=== PATIENT | male | born 1960 | race African-American/Black ===

== ENCOUNTER 2017-08-18 17:24 | Emergency (ER) | payer OTHER ==
[~2017-08-18] VITALS: Ht 188 cm; Wt 124.7 kg
[~2017-08-18 17:24] MED LIST: AMLO10TA2 PO; RISP1TAB7 PO; TRAZ-147 PO; VALS1TAB54 PO
--- NOTE | 2017-08-18 17:25 | NUR ---
BBPA FROM NILO HOLT VV: LLE EDEMA. NAD NOTED. PT AAO X3, RR EVEN AND UNLABORED. PT PLACED IN GOWN AND MONITOR. IV STARTED R ANTHONY 20Chan. AT BEDSIDE FOR EVAL.
[2017-08-18] MEDS ORDERED: LABE200T PO (18:10)
[2017-08-18] MEDS ORDERED: SERT25TA PO (18:10)
[2017-08-18] MEDS ORDERED: OMEP40CA37 PO (18:10)
[2017-08-18] MEDS ORDERED: POTA20TA83 PO (18:10)
[2017-08-18] MEDS ORDERED: HYDR-548 PO (18:10)
[2017-08-18] MEDS ORDERED: GABA-532 PO (18:10)
[2017-08-18] MEDS ORDERED: BENA20TA2 PO (18:10)
[2017-08-18] MEDS ORDERED: DOCU-141 PO (18:10)
[2017-08-18] MEDS ORDERED: FLUT16SP BNOSTRILS (18:11)
[2017-08-18] MEDS ORDERED: IBUP-1955 PO (18:11)
[2017-08-18] MEDS ORDERED: TRAZ-144 PO (18:11)
[2017-08-18] MEDS ORDERED: FURO-144 PO (18:11)
[2017-08-18] MEDS ORDERED: FLUT1BLS IH (18:11)
[2017-08-18] MEDS ORDERED: LORA10TA7 PO (18:11)
[2017-08-18] MEDS ORDERED: ACET-868 PO (18:11)
[2017-08-18] MEDS ORDERED: METO2.5T2 PO (18:11)
[2017-08-18 18:14] LABS: CALCIUM, SERUM 8.7 mg/dL (8.5-10.1); CARBON DIOXIDE 27 mmol/L (21-32); CHLORIDE 106 mmol/L (98-107); GLUCOSE 95 mg/dL (74-106); POTASSIUM 3.9 mmol/L (3.5-5.1); SODIUM SERUM 142 mmol/L (136-145); UREA NITROGEN, BLOOD 13 mg/dL (7-18)
[2017-08-18 18:21] LABS: TROPONIN I < 0.017 ng/mL (0.00-0.056)
[2017-08-18 18:22] LABS: BASOPHILS % (AUTO) 0.5 % (0.0-2.0); EOSINOPHILS # (AUTO) 0.2 /CMM (0.0-0.7); EOSINOPHILS % (AUTO) 3.7 % (0.0-6.0); HEMATOCRIT 32 % (39-51); HEMOGLOBIN 10.6 g/dL (13.5-17.5); LYMPHOCYTES % (AUTO) 15.5 % (20.0-44.0); MEAN CORPUSCULAR HEMOGLOBIN 28 PG (26.0-33.0); MEAN CORPUSCULAR HGB CONC 33 g/dl (31.0-36.0); MEAN CORPUSCULAR VOLUME 85 fL (80-96); MONOCYTES # (AUTO) 0.7 /CMM (0.1-1.30); MONOCYTES % (AUTO) 10.1 % (2.0-12.0); NEUTROPHILS # (AUTO) 4.7 /CMM (1.8-8.9); NEUTROPHILS % (AUTO) 70.2 % (43.0-81.0); PLATELET COUNT (AUTO) 145 /CMM (150-450); RDW COEFFICIENT OF VARIATION 17.5 (11.5-15.0); RED BLOOD CELL COUNT(AUTO) 3.81 MIL/uL (4.5-6.0); WHITE BLOOD COUNT (AUTO) 6.6 K/uL (4.3-11.0)
[2017-08-18 18:26] LABS: ALANINE AMINOTRANSFERASE 11 U/L (12-78); ALBUMIN 3.4 g/dL (3.4-5.0); ALKALINE PHOSPHATASE 102 U/L (46-116); ASPARTATE AMINOTRANSFERASE 14 U/L (15-37); B-TYPE NATRIURETIC PEPTIDE 1246 PG/ML (0-125); BILIRUBIN,DIRECT 0.3 mg/dL (0.0-0.2); BILIRUBIN,TOTAL 0.7 mg/dL (0.2-1.0); TOTAL PROTEIN, SERUM 8.5 g/dL (6.4-8.2)
[2017-08-18 18:30] LABS: APPEARANCE,URINE Clear (CLEAR); BILIRUBIN,URINE SMALL (NEGATIVE); BLOOD, URINE Trace-intact Ery/uL (NEGATIVE); COLOR,URINE Yellow (YELLOW); KETONES,URINE Negative (NEGATIVE); LEUKOCYTE ESTERASE ,URINE Negative (NEGATIVE); NITRITE, URINE Negative (NEGATIVE); PROTEIN,URINE 100 mg/dl (NEGATIVE); UGLUCOSE Negative (NEGATIVE)
[2017-08-18 18:49] LABS: BACTERIA,URINE Rare /HPF (None Seen); SQUAMOUS EPITHELIAL CELL,UR Few /HPF (None Seen); WBC,URINE NONE SEEN /HPF (0-3)
[2017-08-18] MEDS ORDERED: FUROSEMIDE 40 MG/4 ML VIAL ONE (18:57)
[2017-08-18] MEDS ORDERED: FUROSEMIDE 40 MG/4 ML VIAL IV ONE (19:00)
--- NOTE | 2017-08-18 19:01 | NUR ---
GAETANO AT BEDSIDE, URINE COLLECTED CALLED LAB FOR BAND MAKER.
--- NOTE | 2017-08-18 19:02 | NUR ---
Jignesh santillan in [facility] - 08/18/17 at 1903 by EWELINA RECEIVED REPORT FROM LIMA FINNEY FOR SHREYAS.
--- NOTE | 2017-08-18 19:04 | NUR ---
RECEIVED REPORT FROM LIMA FINNEY FOR SHREYAS.
--- NOTE | 2017-08-18 19:56 | NUR ---
CALLED [facility] FOR TRANSPORT ETA OF 2100 WAS GIVEN. TRIP#[phone]
--- NOTE | 2017-08-18 19:57 | NUR ---
PT COMFORTABLE AND STABLE IN BED
--- NOTE | 2017-08-18 20:32 | NUR ---
REPORT GIVEN TO EMT TRANSPORT. PT STABLE
--- NOTE | 2017-08-18 20:51 | NUR ---
HAS BECOME HOSTILE. SPOKE TO MD MERCER ABOUT WRITING SCRIPT FOR [facility] ONCE THIS PT IS BACK AT THE FACILITY HE CAME FROM. PT NOW LEAVING THE FACILITY
[2017-08-18 20:52] VITALS: BP 142/82
== END 2017-08-18 20:52 ==
LOC: ER 17:25
DX: R60.0 Localized edema (principal); J44.9 Chronic obstructive pulmonary disease, unspecified; E66.9 Obesity, unspecified; Z68.39 Body mass index [BMI] 39.0-39.9, adult; D69.6 Thrombocytopenia, unspecified; R31.29 Other microscopic hematuria; R79.89 Other specified abnormal findings of blood chemistry; I50.30 Unspecified diastolic (congestive) heart failure; I11.0 Hypertensive heart disease with heart failure; I50.9 Heart failure, unspecified; I51.7 Cardiomegaly; G47.30 Sleep apnea, unspecified; Z86.73 Personal history of transient ischemic attack (TIA), and cerebral infarction without residual deficits; Z98.84 Bariatric surgery status; Z98.890 Other specified postprocedural states
CPT/HCPCS: 36415; 71045; 80048; 80076; 81001; 83880; 84484; 85025; 93005; 93971; 96374; 99285; A4606; J1940; Z7610; 81000-TC

== ENCOUNTER 2020-09-28 18:12 | Emergency (ER) | payer OTHER ==
[~2020-09-28] VITALS: Ht 188 cm; Wt 156.9 kg
[~2020-09-28 18:12] MED LIST changes: +ACET-868 PO; -AMLO10TA2 PO; +BENA20TA9 PO; +DOCU-141 PO; +FLUT16SP BNOSTRILS; +FLUT1BLS IH; +FURO-144 PO; +GABA-532 PO; +HYDR-4354 PO; +IBUP-1955 PO; +LABE200T5 PO; +LORA10TA7 PO; +METO2.5T2 PO; +OMEP40CA13 PO; +POTA20TA83 PO; -RISP1TAB7 PO; +SERT25TA PO; -TRAZ-147 PO; +TRAZ-182 PO; -VALS1TAB54 PO
[2020-09-28] MEDS ORDERED: OXYMETAZOLINE HCL NASAL SPRAY 30 ML BOTTLE NS ONE ×2 (18:48→19:00)
--- NOTE | 2020-09-28 18:52 | NUR ---
BIB RA [facility] FROM [facility] DUE TO NOSE BLEEDING. PT AAOX4, VSS. RR EVEN & UNLABORED. DENIES CP, SOB, DIZZINESS, N/V AT THIS TIME. PT SEEN & EVAL'D BY ISSA LANCE. MEDICATED ORDERED, PT THOMPSON WELL. WILL CONT TO MONITOR.
--- NOTE | 2020-09-28 19:22 | NUR ---
PT AAOX4, RESPIRATIONS EVEN AND UNLABORED ON RA W/ NAD NOTED. PT CONNECTED TO THE MONITOR AND POX. PT DOES NOT HAVE MEDICAL COMPLAINTS AT THIS TIME. WILL CONTINUE TO MONITOR
[2020-09-28] MEDS ORDERED: HYDROCODONE/APAP 5/325MG TABLET PO ONE (20:00)
[2020-09-28] MEDS ORDERED: ENALAPRILAT INJ (1.25 MG/ML) 1.25 MG/ML VIAL IV PRN (20:00)
[2020-09-28] MEDS ORDERED: ENALAPRILAT INJ (1.25 MG/ML) 1.25 MG/ML VIAL IV ONE (20:14)
[2020-09-28] MEDS ORDERED: HYDROCODONE/APAP 5/325MG TABLET ONE (20:14)
--- NOTE | 2020-09-28 20:45 | NUR ---
PT NOT ACTIVELY BLEEDING AT THIS TIME. PA AWARE.
--- NOTE | 2020-09-28 21:34 | NUR ---
TRIED TO CALL [facility] WAS ON HOLD FOR EXTENDED PERIOD OF TIME, [facility] WAS ABLE TO GIVE 90 MINUTE ETA VIA UN[address]. RETURNING TO FACILITY FROM WHICH HE CAME.
[2020-09-28] MEDS ORDERED: TRANEXAMIC ACID 1,000 MG/10 ML VIAL ONE (22:04)
[2020-09-28] MEDS ORDERED: PHENYLEPHRINE 0.5% NASAL SPRAY 15 ML BOTTLE NS ONE (22:06)
[2020-09-28] MEDS ORDERED: PHENYLEPHRINE HCL NASAL SPRAY 15 ML BOTTLE NS ONE (22:30)
[2020-09-28] MEDS ORDERED: MORPHINE SULFATE INJ 2 MG/ML DISP.SYRIN ONE (22:56)
[2020-09-28] MEDS ORDERED: ONDANSETRON HCL/PF 4 MG/2 ML VIAL ONE (22:56)
[2020-09-28] MEDS ORDERED: ONDANSETRON HCL/PF 4 MG/2 ML VIAL IVP ONE (23:00)
[2020-09-28] MEDS ORDERED: MORPHINE SULFATE INJ 2 MG/ML DISP.SYRIN IV ONE (23:00)
--- NOTE | 2020-09-28 23:44 | NUR ---
ETA FOR TRANSPORT VIA [facility] IS: 0930 [facility] TRIP NUMBER:[id number].
--- NOTE | 2020-09-29 00:26 | NUR ---
PT RESTING COMFORTABLY IN BED. NAD NOTED. NO ACTIVE BLEEDING
--- NOTE | 2020-09-29 02:50 | NUR ---
PT RESTING COMFORTABLY IN BED. VSS. WILL CONTINUE TO MONITOR PT
[2020-09-29 04:37] VITALS: BP 129/79
--- NOTE | 2020-09-29 08:50 | NUR ---
PATIENT AA/OX4, WAITING FOR TRANSPORTATION. NO NOSEBLEED NOTED AT THIS TIME.
--- NOTE | 2020-09-29 10:13 | NUR ---
TRANSPO UPDATE ETA 1030.
--- NOTE | 2020-09-29 10:35 | NUR ---
TRANSPORTATION CAME, PATIENT DOES NOT FIT IN THE GURNEY, WILL SEND ANOTHER CREW LATER TODAY.
--- NOTE | 2020-09-29 10:59 | NUR ---
CALLED [facility] NEW ETA OF AMBULANCE IS 60 MINS
--- NOTE | 2020-09-29 11:30 | NUR ---
FOOD TRAY PROVIDED.
--- NOTE | 2020-09-29 12:50 | NUR ---
REPORT GIVEN TO SAFETY GROOVING MACHINE OPERATOR. PATIENT A/OX4, BREATHING EVEN AND UNLABORED, PATIENT DC TO SNF IN STABLE CONDITION. REPORT GIVEN TO NILO ACKERMAN THIS AM. PATIENT HAS NO EPISODE OF NOSE BLEED AT THIS TIME. Patient discharged to home in stable condition. Written and verbal after care instructions given. Patient verbalizes understanding of instruction.
== END 2020-09-29 12:51 ==
LOC: ER 18:16
DX: R04.0 Epistaxis (principal); G89.29 Other chronic pain; M54.5 Low back pain; E66.9 Obesity, unspecified; Z68.41 Body mass index [BMI] 40.0-44.9, adult; I11.0 Hypertensive heart disease with heart failure; I50.9 Heart failure, unspecified; M10.9 Gout, unspecified; Z86.73 Personal history of transient ischemic attack (TIA), and cerebral infarction without residual deficits; Z98.890 Other specified postprocedural states; Z79.899 Other long term (current) drug therapy
CPT/HCPCS: 96374; 96375; 99285; J2270; J2405; J3490

== ENCOUNTER 2021-04-14 08:33 | Inpatient (IN) | payer OTHER ==
[~2021-04-14] VITALS: Ht 188 cm; Wt 156.9 kg
[~2021-04-14 08:33] MED LIST changes: -OMEP40CA13 PO; +OMEP40CA21 PO
[2021-04-14] MEDS ORDERED: FUROSEMIDE 40 MG/4 ML VIAL ONE (08:49)
[2021-04-14] MEDS ORDERED: FUROSEMIDE 40 MG/4 ML VIAL IV ONE (09:00)
--- NOTE | 2021-04-14 09:00 | NUR ---
Started IV line, blood specimen collected and sent to the lab. The line is saline locked.
[2021-04-14] MEDS ORDERED: APIX5TAB PO (09:06)
[2021-04-14] MEDS ORDERED: SPIR25TA6 PO (09:06)
[2021-04-14] MEDS ORDERED: ROSU5TAB13 PO (09:06)
[2021-04-14] MEDS ORDERED: DIGO125T PO (09:06)
[2021-04-14] MEDS ORDERED: CYCL5TAB PO (09:06)
[2021-04-14] MEDS ORDERED: METO-358 PO (09:06)
[2021-04-14] MEDS ORDERED: FERR325T24 PO (09:06)
[2021-04-14 09:12] LABS: BASOPHILS # (AUTO) 0.1 K/uL (0.0-0.2); BASOPHILS % (AUTO) 0.6 % (0.0-2.0); EOSINOPHILS % (AUTO) 0.8 % (0.0-6.0); HEMATOCRIT 36 % (39-51); HEMOGLOBIN 11.7 g/dL (13.5-17.5); LYMPHOCYTES # (AUTO) 1.3 K/uL (0.8-4.8); LYMPHOCYTES % (AUTO) 10.4 % (20.0-44.0); MEAN CORPUSCULAR HGB CONC 32 g/dl (31.0-36.0); MEAN CORPUSCULAR VOLUME 94 fL (80-96); MONOCYTES # (AUTO) 1.1 K/uL (0.1-1.30); MONOCYTES % (AUTO) 9.4 % (2.0-12.0); NEUTROPHILS # (AUTO) 9.5 K/uL (1.8-8.9); NEUTROPHILS % (AUTO) 78.8 % (43.0-81.0); PLATELET COUNT (AUTO) 262 K/uL (150-450); RED BLOOD CELL COUNT(AUTO) 3.84 MIL/uL (4.5-6.0)
--- NOTE | 2021-04-14 09:23 | NUR ---
THE PATIENT`S OXYGEN SATURATION IN ROOM AIR IS AT 81%. THE PATIENT IS PLACED ON OXYGEN AT 5L/MIN VIA NASAL CANNULA AND SATURATION IMPROVED TO 95%. WILL CONTINUE TO MONITOR THE PATIENT.
[2021-04-14 09:27] LABS: CALCIUM, SERUM 8.5 mg/dL (8.5-10.1); CREATININE 1.1 mg/dL (0.6-1.3); POTASSIUM 3.4 mmol/L (3.5-5.1)
--- NOTE | 2021-04-14 10:17 | NUR ---
COVID SWAB DONE AND SENT TO THE LAB
[2021-04-14] MEDS ORDERED: ALBUTEROL FS 2.5 MG/3 ML VIAL.NEB NEB ONE (10:30)
[2021-04-14] MEDS ORDERED: IPRATROPIUM NEB FS 0.5 MG/2.5 ML AMPUL.NEB NEB ONE (10:30)
--- NOTE | 2021-04-14 10:33 | NUR ---
BLOOD PRESSURE 178/[address] BAIRES MADE AWARE. NO NEW ORDER PER DR BAIRES. WILL CONTINUE TO MONITOR THE PATIENT.
[2021-04-14] MEDS ORDERED: ALBUTEROL FS 2.5 MG/3 ML VIAL.NEB ONE (10:51)
[2021-04-14] MEDS ORDERED: IPRATROPIUM NEB FS 0.5 MG/2.5 ML AMPUL.NEB ONE (10:51)
--- NOTE | 2021-04-14 10:59 | NUR ---
CALLED NURSING SUP REGARDING PT BED
--- NOTE | 2021-04-14 11:36 | NUR ---
REPORT GIVEN TO NURSE ISACA
--- NOTE | 2021-04-14 12:17 | NUR ---
THE PATIENT IS TRANSFERED TO [facility] IN STABLE CONDITION AND PER ACLS POLICY.
[2021-04-14 12:22] VITALS: BP 148/67
--- NOTE | 2021-04-14 12:30 | NUR ---
RN NOTE RECEIVED PATIENT FROM LIMA CAGE FOR SHREYAS
[2021-04-14] MEDS ORDERED: ONDANSETRON HCL/PF 4 MG/2 ML VIAL IVP PRN (14:00)
[2021-04-14] MEDS ORDERED: MAGNESIUM HYDROXIDE 30 ML UDC PO PRN (14:00)
[2021-04-14] MEDS ORDERED: ENOXAPARIN SODIUM 40 MG/0.4 ML DISP.SYRIN SQ SCH (14:00)
[2021-04-14] MEDS ORDERED: POTASSIUM CHLORIDE 20 MEQ TAB.PRT.SR PO ONE (14:00)
[2021-04-14] MEDS: METOPROLOL SUCCINATE 50 MG TAB.SR.24H PO SCH (14:29)
[2021-04-14 16:00] VITALS: BP 151/79
[2021-04-14] MEDS: APIXABAN 5 MG TABLET PO SCH (16:33)
[2021-04-14] MEDS: GABAPENTIN 100 MG CAPSULE PO SCH (16:34)
[2021-04-14] MEDS: POTASSIUM CHLORIDE 20 MEQ TAB.PRT.SR PO SCH (16:34)
--- NOTE | 2021-04-14 17:38 | NUR ---
RN NOTE NOTIFIED DR. GRIFFITHS OF BP 151/71. STATED SHE WILL LOOK OVER MEDLIST.
--- NOTE | 2021-04-14 18:39 | NUR ---
RN NOTE PATIENT IS IN BED WITH HOB AT SEMI FOWLERS POSITION. PATIENT IS ON 5L NC WITH NO SIGNS OF LABORED BREATHING. PATIENT IS AOX4. LHAND IV ACCESS IS PATENT AND INTACT. BED IS LOCKED IN THE LOWEST POSITION, 3 GUARD RAILS RAISED, CALL BENITEZ WITHIN REACH, AND ALL HOSPITAL SAFETY PRECAUTIONS ARE BEING FOLLOWED. WILL ENDORSE TO SLURRY CONTROL OPERATOR HELPER RN.
--- NOTE | 2021-04-14 19:31 | NUR ---
RN OPENING NOTES: RECEIVED PATIENT FROM DAY SHIFT, PATIENT IN BED, SLEEPING, V/S STABLE, NO SIGNS OF DISTRESS, NO SOB, NC AT 5L, IV ACCESS RT. HAND GAUGE 20 PATENT AND INTACT. BED AT LOWEST POSITION, BRAKES LOCKED, SIDE RAILS UP X2, CALL LIGHT WITHIN REACH,
[2021-04-14 20:00] VITALS: BP 136/71
[2021-04-14] MEDS: CYCLOBENZAPRINE 10 MG TABLET PO SCH (21:57)
[2021-04-14] MEDS: ATORVASTATIN 10 MG TABLET PO SCH (21:58)
[2021-04-14] MEDS: SERTRALINE HCL 25 MG TABLET PO SCH (21:58)
[2021-04-14] MEDS: hydrALAZINE HCL 25 MG TABLET PO SCH (22:13)
[2021-04-15] VITALS: BP 120/92
[2021-04-15 04:00] VITALS: BP 145/93
[2021-04-15] MEDS: hydrALAZINE HCL 25 MG TABLET PO SCH ×3 (04:59→21:22)
--- NOTE | 2021-04-15 06:28 | NUR ---
RN CLOSING NOTES: PATIENT VS WNL EXCEPT BP SLIGHTLY ELEVATED 145/93, PATIENT SHOWS NO SIGNS OF RESPIRATORY DISTRESS OR SOB, PATIENT AWAKE AND ALERT 0630, ABLE TO VERBALIZE NEEDS, CONSENT FOR ULTRASOUND GUIDED PARACENTESIS OBTAINED AND PLACED IN THE CHART, BED AT LOWEST POSITION, CALL LIGHT WITHIN REACH, SIDE RAILS UP X2, WOUND CONSULT ORDERED, NEPHRO AND CARDIO CONSULT ORDERED, MILD SPLENOMEGALY, HEMATOLOGY/ONCOLOGY CONSULT ORDERED. WILL ENDORSE TO DAY SHIFT NURSE. Addendum: 04/15/21 at 0633 by ISAIAH OHARA RN DISREGARD, NOTES WERE FOR PATIENT IN 119
[2021-04-15 06:31] LABS: BASOPHILS # (AUTO) 0.1 K/uL (0.0-0.2); BASOPHILS % (AUTO) 0.5 % (0.0-2.0); HEMATOCRIT 34 % (39-51); HEMOGLOBIN 11.2 g/dL (13.5-17.5); LYMPHOCYTES # (AUTO) 1.2 K/uL (0.8-4.8); LYMPHOCYTES % (AUTO) 10.4 % (20.0-44.0); MEAN CORPUSCULAR HGB CONC 33 g/dl (31.0-36.0); MEAN CORPUSCULAR VOLUME 96 fL (80-96); MONOCYTES % (AUTO) 8.9 % (2.0-12.0); NEUTROPHILS # (AUTO) 8.7 K/uL (1.8-8.9); NEUTROPHILS % (AUTO) 78.2 % (43.0-81.0); PLATELET COUNT (AUTO) 240 K/uL (150-450); RED BLOOD CELL COUNT(AUTO) 3.52 MIL/uL (4.5-6.0); WHITE BLOOD COUNT (AUTO) 11.1 K/uL (4.3-11.0)
--- NOTE | 2021-04-15 06:38 | NUR ---
RN CLOSING NOTES: PATIENT IS SLEEPING IN BED, V/S WNL, SATURATION 93% ON NC 5L, TELE SHOWS A FIB. CONTROLLED, A/O X4, AMBULATORY, SKIN INTACT, ON CARDIAC DIET, RT HAND #20, PATENT AND INTACT, FLUSHED WITH SALINE, USES URINAL, LABS WNL, BEDBOUND, SACRAL SCAR PRESENT. PATIENT HAS CALL LIGHT WITHIN REACH, BED AT LOWEST POSITION AND LOCKED, SIDE RAILS UP X2, WILL CONTINUE TO MONITOR AND ENDORSE TO DAY SHIFT NURSE.
[2021-04-15 06:55] LABS: CALCIUM, SERUM 8.6 mg/dL (8.5-10.1); CREATININE 0.9 mg/dL (0.6-1.3); MAGNESIUM 2.3 mg/dL (1.8-2.4); PHOSPHORUS 3.1 mg/dL (2.5-4.9); POTASSIUM 3.8 mmol/L (3.5-5.1)
[2021-04-15 08:00] VITALS: BP 146/89
[2021-04-15] MEDS: GABAPENTIN 100 MG CAPSULE PO SCH ×3 (08:03→16:19)
[2021-04-15] MEDS: BENAZEPRIL HCL 10 MG TABLET PO SCH (08:04)
[2021-04-15] MEDS: DIGOXIN 0.125 MG TABLET PO SCH (08:05)
[2021-04-15] MEDS: FERROUS SULFATE (325 MG) 325 MG/TAB TABLET PO SCH (08:05)
[2021-04-15] MEDS: POTASSIUM CHLORIDE 20 MEQ TAB.PRT.SR PO SCH ×3 (08:05→16:20)
[2021-04-15] MEDS: APIXABAN 5 MG TABLET PO SCH ×2 (08:06→16:20)
[2021-04-15] MEDS ORDERED: BUMETANIDE INJ 6 MG in IV D5W 36 ML IV ONE (09:00)
[2021-04-15 12:00] VITALS: BP 100/53
[2021-04-15] MEDS: METOPROLOL SUCCINATE 50 MG TAB.SR.24H PO SCH (13:17)
[2021-04-15 16:00] VITALS: BP 111/62
[2021-04-15 20:00] VITALS: BP 149/70
--- NOTE | 2021-04-15 20:00 | NUR ---
RN OPENING NOTE: RECEIVED PATIENT AWAKE IN BED, ALERT AND ORIENTED X4 ABLE TO VERBALIZE NEEDS, ON TELE MONITOR UNCONTROLLED AFIB 110 .O2 AT 5LITERS VIA NC TOLERATING WELL O2 SAT OF 96% BREATHING EVEN AND UNLABORED, NO COMPLAINS OF CHEST PAIN NOTED, NO DISTRESS, TURNED AND REPOSITION ON CARDIAC DIET, WITH RIGHT HAND GAUGE 20, INTACT AND PATENT . ISOLATION PRECAUTION OBSERVED, SAFETY MEASURE OBSERVED, BED WHEELS LOCK, BED ALARM SHELL TRIM TOOL SETTER LIGHT WITHIN REACH, V/S STABLE AFEBRILE . DUE MEDS GIVEN ORDER NO ASE NOTED .WILL CONTINUE TO MONITOR.
[2021-04-15] MEDS: CYCLOBENZAPRINE 10 MG TABLET PO SCH (21:23)
[2021-04-15] MEDS: SERTRALINE HCL 25 MG TABLET PO SCH (21:23)
[2021-04-15] MEDS: ATORVASTATIN 10 MG TABLET PO SCH (21:24)
[2021-04-15] MEDS: FUROSEMIDE 40 MG/4 ML VIAL IV SCH (21:29)
[2021-04-16] VITALS: BP 124/79
[2021-04-16 04:00] VITALS: BP 120/69
[2021-04-16] MEDS: hydrALAZINE HCL 25 MG TABLET PO SCH ×3 (05:56→21:29)
--- NOTE | 2021-04-16 07:00 | NUR ---
RN NOTES: RECEIVED ON BED, SLEEPING, V/S STABLE, NO SIGNS OF DISTRESS, NO SOB, NC AT 5L, IV ACCESS RT. HAND GAUGE 20 PATENT AND INTACT. BED AT LOWEST POSITION, BRAKES LOCKED, SIDE RAILS UP X3, CALL LIGHT WITHIN REACH, CONTINUE TO MONITOR .
--- NOTE | 2021-04-16 07:21 | NUR ---
RN CLOSING NOTE: PATIENT STABLE AND SLEEPING IN BED. SATURATING WELL ON ON 5 LITERS OF 02 VIA NC. TOLERATING, NO DISTRESS, NO SOB NOTED. BED AT LOWEST POSITION, SIDE RAILS UP X2, CALL LIGHT WITHIN REACH, WILL CONTINUE TO MONITOR WILL ENDORSE TO DAY SHIFT FOR CONTINUITY OF CARE.
[2021-04-16 08:00] VITALS: BP 123/72
[2021-04-16] MEDS: BENAZEPRIL HCL 10 MG TABLET PO SCH (08:34)
[2021-04-16] MEDS: DIGOXIN 0.125 MG TABLET PO SCH (08:35)
[2021-04-16] MEDS: GABAPENTIN 100 MG CAPSULE PO SCH ×3 (08:35→17:03)
[2021-04-16] MEDS: POTASSIUM CHLORIDE 20 MEQ TAB.PRT.SR PO SCH ×3 (08:36→17:03)
[2021-04-16] MEDS: FERROUS SULFATE (325 MG) 325 MG/TAB TABLET PO SCH (08:36)
[2021-04-16] MEDS: APIXABAN 5 MG TABLET PO SCH ×2 (08:37→17:03)
[2021-04-16] MEDS: FUROSEMIDE 40 MG/4 ML VIAL IV SCH ×2 (08:37→17:03)
[2021-04-16] MEDS ORDERED: IPRATROPIUM NEB FS 0.5 MG/2.5 ML AMPUL.NEB NEB PRN (10:30)
--- NOTE | 2021-04-16 10:30 | NUR ---
RN NOTES LEAKING NOTED AROUND GT SITE , DR CLEMENTE NOTIFIED. Addendum: 04/16/21 at 1837 by GLADIS CORDON RN PLEASE DISREGARD ABOVE CHARTING , CHARTED ON WRONG PT .
[2021-04-16 11:07] LABS: CALCIUM, SERUM 8.5 mg/dL (8.5-10.1); POTASSIUM 3.7 mmol/L (3.5-5.1)
--- NOTE | 2021-04-16 11:40 | NUR ---
WOUND CARE CONSULT: PT PRESENTS WITH GENERALIZED EDEMA AND SACRAL SCARRING WHICH EXTENDS TO BUTTOCKS, PRESENT ON ADMISSION. PT IS INCONTINENT OF URINE. RECOMMENDATIONS MADE FOR SKIN PROTECTION INCLUDING BARIMAX ETS AIR BED. DISCUSSED WITH NURSING STAFF. MD IN AGREEMENT WITH PLAN OF CARE.
[2021-04-16 12:00] VITALS: BP 130/78
[2021-04-16] MEDS: METOPROLOL SUCCINATE 50 MG TAB.SR.24H PO SCH (13:00)
[2021-04-16 16:00] VITALS: BP 133/71
[2021-04-16] MEDS: LEVOFLOXACIN 750 MG /D5W 150ML 150 ML IV SCH (16:20)
--- NOTE | 2021-04-16 17:00 | NUR ---
RN NOTES PT PLACED ON BARIATRIC BED,
--- NOTE | 2021-04-16 18:37 | NUR ---
RN NOTES NO SIGNIFICANT CHANGES NOTED ON THIS SHIFT , WILL ENDOSE TO DRAGLINE ENGINEER NURSE FOR CONTINUITY OF CARE
[2021-04-16 20:00] VITALS: BP 114/62
--- NOTE | 2021-04-16 20:00 | NUR ---
RN OPENING NOTE: RECEIVED PATIENT AWAKE IN BED, ALERT AND ORIENTED X4 ABLE TO VERBALIZE NEEDS, ON TELE MONITOR UNCONTROLLED AFIB 68 .O2 AT 5LITERS VIA NC TOLERATING WELL O2 SAT OF 94% BREATHING EVEN AND UNLABORED, NO COMPLAINS OF CHEST PAIN NOTED, NO DISTRESS, TEMPERATURE OF 100 COOLING MEASURES PROVIDED, TYLENOL GIVEN ORDERED. TURNED AND REPOSITION ON CARDIAC DIET, WITH RIGHT HAND GAUGE 20, INTACT AND PATENT . ISOLATION PRECAUTION OBSERVED, SAFETY MEASURE OBSERVED, BED WHEELS LOCK, BED ALARM FOOD SCIENCE PROFESSOR LIGHT WITHIN REACH, V/S STABLE AFEBRILE . DUE MEDS GIVEN ORDER NO ASE NOTED . NPO POST MIDNIGHT INSTRUCTED FOR CT PULMONARY ANGIO, CONSENT OBTAINED. WILL CONTINUE TO MONITOR.
[2021-04-16] MEDS: CYCLOBENZAPRINE 10 MG TABLET PO SCH (21:29)
[2021-04-16] MEDS: ATORVASTATIN 10 MG TABLET PO SCH (21:29)
[2021-04-16] MEDS: SERTRALINE HCL 25 MG TABLET PO SCH (21:30)
[2021-04-16] MEDS: ACETAMINOPHEN 325 MG TABLET PO PRN (21:31)
[2021-04-17] VITALS: BP 112/52
[2021-04-17 04:00] VITALS: BP 111/70
[2021-04-17] MEDS: hydrALAZINE HCL 25 MG TABLET PO SCH ×3 (05:09→21:16)
--- NOTE | 2021-04-17 06:57 | NUR ---
RN CLOSING NOTE: PATIENT RENDERED TO MORNING SHIFT. AWAKE IN BED, ALERT AND ORIENTED X4 ABLE TO VERBALIZE NEEDS, ON TELE MONITOR CONTROLLED AFIB. O2 AT 5 LITERS VIA NC TOLERATING WELL O2 SAT OF 98% BREATHING EVEN AND UNLABORED, NO COMPLAINS OF CHEST PAIN NOTED, NO DISTRESS, TEMPERATURE OF 97.9. TURNED AND REPOSITION ON CARDIAC DIET, WITH RIGHT HAND GAUGE 20, INTACT AND PATENT, SAFETY MEASURE OBSERVED, BED WHEELS LOCK, BED ALARM SR. STRATEGIC SOURCING MANAGER LIGHT WITHIN REACH, V/S STABLE AFEBRILE . NPO POST MIDNIGHT MAINTAINED FOR CT PULMONARY ANGIO, CONSENT OBTAINED. WILL CONTINUE TO MONITOR.
[2021-04-17 08:00] VITALS: BP 129/91
[2021-04-17 08:01] LABS: BASOPHILS % (AUTO) 0.4 % (0.0-2.0); EOSINOPHILS % (AUTO) 2.6 % (0.0-6.0); HEMATOCRIT 35 % (39-51); HEMOGLOBIN 11.2 g/dL (13.5-17.5); LYMPHOCYTES # (AUTO) 1.4 K/uL (0.8-4.8); LYMPHOCYTES % (AUTO) 15.7 % (20.0-44.0); MEAN CORPUSCULAR HGB CONC 32 g/dl (31.0-36.0); MEAN CORPUSCULAR VOLUME 97 fL (80-96); MONOCYTES % (AUTO) 11.9 % (2.0-12.0); NEUTROPHILS % (AUTO) 69.4 % (43.0-81.0); PLATELET COUNT (AUTO) 270 K/uL (150-450); RED BLOOD CELL COUNT(AUTO) 3.58 MIL/uL (4.5-6.0); WHITE BLOOD COUNT (AUTO) 8.6 K/uL (4.3-11.0)
[2021-04-17] MEDS: FERROUS SULFATE (325 MG) 325 MG/TAB TABLET PO SCH (08:21)
[2021-04-17] MEDS: BENAZEPRIL HCL 10 MG TABLET PO SCH (08:21)
[2021-04-17] MEDS: GABAPENTIN 100 MG CAPSULE PO SCH ×3 (08:21→17:07)
[2021-04-17] MEDS: POTASSIUM CHLORIDE 20 MEQ TAB.PRT.SR PO SCH ×3 (08:21→17:07)
[2021-04-17] MEDS: DIGOXIN 0.125 MG TABLET PO SCH (08:22)
[2021-04-17] MEDS: FUROSEMIDE 40 MG/4 ML VIAL IV SCH ×2 (08:22→17:07)
[2021-04-17] MEDS: METOPROLOL SUCCINATE 50 MG TAB.SR.24H PO SCH ×2 (08:22→17:07)
[2021-04-17] MEDS: APIXABAN 5 MG TABLET PO SCH ×2 (08:23→17:00)
[2021-04-17 08:47] LABS: CALCIUM, SERUM 8.7 mg/dL (8.5-10.1); MAGNESIUM 2.1 mg/dL (1.8-2.4); PHOSPHORUS 3.6 mg/dL (2.5-4.9)
--- NOTE | 2021-04-17 11:11 | NUR ---
1100, PT MEASURED FOR CT GANTRY AND EXCEEDS LIMITS AND IS BORDERLINE WEIGHT LIMA MOYA NOTIFIED AND WILL COMMUNCATE WITH ORDERING PMD.
[2021-04-17 12:00] VITALS: BP 129/91
[2021-04-17] MEDS: LEVOFLOXACIN 750 MG /D5W 150ML 150 ML IV SCH (15:47)
[2021-04-17 16:00] VITALS: BP 136/74
--- NOTE | 2021-04-17 19:36 | NUR ---
RN OPENING NOTES: RECEIVED PATIENT AWAKE IN BED, ALERT AND ORIENTED X4, ABLE TO VERBALIZE NEEDS, ON TELE MONITOR CONTROLLED AFIB 86.O2 AT 5 LITERS VIA NC TOLERATING WELL WITH NO SIGNS OF RESPIRATORY DISTRESS, BREATHING EVEN AND UNLABORED, NO COMPLAINS OF CHEST PAIN NOTED. TURNED AND REPOSITION, WITH RIGHT HAND GAUGE 20, INTACT AND PATENT. SAFETY MEASURE OBSERVED, BED WHEELS LOCK, BED ALARM FLAME ANNEALING MACHINE OPERATOR LIGHT WITHIN REACH. DUE MEDS GIVEN ORDER NO ASE NOTED. NPO POST MIDNIGHT INSTRUCTED FOR CT PULMONARY ANGIO, CONSENT OBTAINED. WILL CONTINUE TO MONITOR.
[2021-04-17 20:00] VITALS: BP 134/74
[2021-04-17] MEDS: CYCLOBENZAPRINE 10 MG TABLET PO SCH (21:15)
[2021-04-17] MEDS: ATORVASTATIN 10 MG TABLET PO SCH (21:16)
[2021-04-17] MEDS: SERTRALINE HCL 25 MG TABLET PO SCH (21:16)
[2021-04-18] VITALS: BP 126/73
[2021-04-18 04:00] VITALS: BP 124/77
[2021-04-18] MEDS: hydrALAZINE HCL 25 MG TABLET PO SCH ×3 (05:25→20:28)
--- NOTE | 2021-04-18 06:29 | NUR ---
RN CLOSING NOTE: PATIENT STABLE AND SLEEPING IN BED. SATURATING WELL ON ON 5 LITERS OF 02 VIA NC. TOLERATING, NO DISTRESS, NO SOB NOTED NPO MAINTAINED FO CT PULMONARY ANGIOGRAM. BED AT LOWEST POSITION, SIDE RAILS UP X2, CALL LIGHT WITHIN REACH, WILL CONTINUE TO MONITOR WILL ENDORSE TO DAY SHIFT FOR CONTINUITY OF CARE.
[2021-04-18 07:27] LABS: BASOPHILS # (AUTO) 0.1 K/uL (0.0-0.2); BASOPHILS % (AUTO) 0.6 % (0.0-2.0); EOSINOPHILS % (AUTO) 2.6 % (0.0-6.0); HEMATOCRIT 34 % (39-51); LYMPHOCYTES # (AUTO) 1.2 K/uL (0.8-4.8); MEAN CORPUSCULAR HGB CONC 33 g/dl (31.0-36.0); MEAN CORPUSCULAR VOLUME 95 fL (80-96); MONOCYTES % (AUTO) 9.6 % (2.0-12.0); NEUTROPHILS # (AUTO) 7.5 K/uL (1.8-8.9); NEUTROPHILS % (AUTO) 75.2 % (43.0-81.0); PLATELET COUNT (AUTO) 279 K/uL (150-450); RED BLOOD CELL COUNT(AUTO) 3.53 MIL/uL (4.5-6.0); WHITE BLOOD COUNT (AUTO) 9.9 K/uL (4.3-11.0)
--- NOTE | 2021-04-18 07:30 | NUR ---
LABOR DELIVERY RN OPENING NOTES: RECEIVED PATIENT AWAKE IN BED, A/O X4, ABLE TO VERBALIZE NEEDS, ON TELE MONITOR CONTROLLED AFIB 92. O2 AT 5 LITERS VIA NC TOLERATING WELL WITH NO SIGNS OF RESPIRATORY DISTRESS, BREATHING EVEN AND UNLABORED, NO COMPLAINS OF CHEST PAIN NOTED. RIGHT HAND GAUGE 20, INTACT AND PATENT. SAFETY MEASURE MAINTAINED, BED IN LOWEST LOCKED POSITION, HOB ELEVATED, CALL LIGHT AND TABLE WITHIN REACH. NPO POST MIDNIGHT INSTRUCTED FOR CT PULMONARY ANGIO, CONSENT OBTAINED. WILL CONTINUE TO MONITOR.
[2021-04-18 07:52] LABS: ALBUMIN 2.5 g/dL (3.4-5.0); BILIRUBIN,TOTAL 0.6 mg/dL (0.2-1.0); CREATININE 0.9 mg/dL (0.6-1.3); MAGNESIUM 2.3 mg/dL (1.8-2.4); PHOSPHORUS 3.2 mg/dL (2.5-4.9); POTASSIUM 4.2 mmol/L (3.5-5.1); TOTAL PROTEIN, SERUM 8.3 g/dL (6.4-8.2)
[2021-04-18 08:00] VITALS: BP 124/72
[2021-04-18] MEDS: METOPROLOL SUCCINATE 50 MG TAB.SR.24H PO SCH ×2 (08:26→16:40)
[2021-04-18] MEDS: APIXABAN 5 MG TABLET PO SCH ×2 (08:28→16:41)
[2021-04-18] MEDS: GABAPENTIN 100 MG CAPSULE PO SCH ×3 (08:28→16:40)
--- NOTE | 2021-04-18 08:28 | NUR ---
RN NOTE WITHHELD ELIQUIS 5 MG PO AT THIS TIME DUE TO UPCOMING CT PULMONARY ANGIOGRAM.
[2021-04-18] MEDS: FERROUS SULFATE (325 MG) 325 MG/TAB TABLET PO SCH (08:29)
[2021-04-18] MEDS: POTASSIUM CHLORIDE 20 MEQ TAB.PRT.SR PO SCH ×3 (08:29→16:41)
[2021-04-18] MEDS: BENAZEPRIL HCL 10 MG TABLET PO SCH (08:29)
[2021-04-18] MEDS: DIGOXIN 0.125 MG TABLET PO SCH (08:30)
[2021-04-18] MEDS: FUROSEMIDE 40 MG/4 ML VIAL IV SCH ×2 (08:30→16:41)
[2021-04-18 09:14] LABS: IRON, SERUM 45 ug/dl (50-175); TOTAL IRON BINDING CAPACITY 320 ug/dl (250-450)
[2021-04-18 09:29] LABS: FERRITIN 134 ng/mL (8-388)
[2021-04-18 12:00] VITALS: BP 143/66
[2021-04-18] MEDS: LEVOFLOXACIN 750 MG /D5W 150ML 150 ML IV SCH (15:09)
[2021-04-18 16:00] VITALS: BP 127/60
--- NOTE | 2021-04-18 16:42 | NUR ---
RN NOTE WITHHELD ELIQUIS 5 MG PO AT THIS TIME DUE TO EPISTAXIS. NEUROPSYCHOLOGY DIVISION CHIEF AYE AWARE. WILL CONTINUE TO MONITOR PT.
--- NOTE | 2021-04-18 18:45 | NUR ---
MASK DESIGNER CLOSING NOTES PATIENT AWAKE IN BED, A/O X4, ABLE TO VERBALIZE NEEDS, ON TELE MONITOR CONTROLLED AFIB 65. O2 AT 4 LITERS VIA NC TOLERATING WELL WITH NO SIGNS OF RESPIRATORY DISTRESS, BREATHING EVEN AND UNLABORED, NO COMPLAINS OF CHEST PAIN NOTED. RIGHT HAND GAUGE 20, INTACT AND PATENT. ALL NEEDS MET AT THIS TIME. SAFETY MEASURE MAINTAINED AT ALL TIMES. BED IN LOWEST LOCKED POSITION, HOB ELEVATED, CALL LIGHT AND TABLE WITHIN REACH. WILL ENDORSE TO ONCOMING NURSE FOR SHREYAS.
--- NOTE | 2021-04-18 19:52 | NUR ---
RN OPENING NOTE: RECEIVED PATIENT AWAKE IN BED, ALERT AND ORIENTED X4 ABLE TO VERBALIZE NEEDS, ON TELE MONITOR AFIB CONTROLLED 107 .O2 AT 4 LITERS VIA NC TOLERATING WELL O2 SAT OF 94% BREATHING EVEN AND UNLABORED, NO COMPLAINS OF CHEST PAIN NOTED, NO DISTRESS TURNED AND REPOSITION WITH RIGHT HAND GAUGE 20, AND RIGHT FOREARM g18 INTACT AND PATENT . BED WHEELS LOCK, BED ALARM ON ,CALL LIGHT WITHIN REACH, V/S STABLE AFEBRILE . DUE MEDS GIVEN ORDER NO ASE NOTED . WILL CONTINUE TO MONITOR PATIENT .
[2021-04-18 20:00] VITALS: BP 116/72
[2021-04-18] MEDS: ATORVASTATIN 10 MG TABLET PO SCH (21:06)
[2021-04-18] MEDS: SERTRALINE HCL 25 MG TABLET PO SCH (21:06)
[2021-04-18] MEDS: CYCLOBENZAPRINE 10 MG TABLET PO SCH (21:07)
[2021-04-19] VITALS: BP 131/65
[2021-04-19 04:00] VITALS: BP 127/66
--- NOTE | 2021-04-19 04:00 | NUR ---
telephone assembler notes pts offered to clean pts refused at this time explained r/b pts still refused.
[2021-04-19] MEDS: hydrALAZINE HCL 25 MG TABLET PO SCH ×3 (05:47→21:49)
--- NOTE | 2021-04-19 06:30 | NUR ---
RN CLOSING NOTE: PATIENT STABLE AND SLEEPING IN BED. SATURATING WELL ON ON 4 LITERS OF 02 VIA NC. TOLERATING, NO DISTRESS, NO SOB NOTED PTS OFFERED 4X TO CLEAN HIM AND UNTIL AT THIS TIME PTS REFUSING TO BE CLEANED.. BED AT LOWEST POSITION, SIDE RAILS UP X2, CALL LIGHT WITHIN REACH, WILL CONTINUE TO MONITOR WILL ENDORSE TO DAY SHIFT FOR CONTINUITY OF CARE.
--- NOTE | 2021-04-19 07:30 | NUR ---
RN NOTES PT FOUND SUPINE WATCHING TV DISPLAYING NO S/S OF DISTRESS, PT ENDORSES NO PAIN AND IS BREATHING EVEN AND UNLABORED ON NC. PT HAS NO COMPLAINTS OR QUESTIONS AT THIS TIME. R FA 18G AND R HAND 20G IV ARE PATIENT AND INTACT. VSS, RN WILL MONITOR AND TREAT THROUGHOUT SHIFT. SAFETY MEASURES IN PLACE, BED LOCKED AND IN LOWEST POSITION, SIDE RAILS UPX2, CALL LIGHT WITHIN REACH, PT INSTRUCTED TO CALL FOR ASSISTANCE.
[2021-04-19] MEDS: POTASSIUM CHLORIDE 20 MEQ TAB.PRT.SR PO SCH ×3 (08:57→17:31)
[2021-04-19] MEDS: DIGOXIN 0.125 MG TABLET PO SCH (08:58)
[2021-04-19] MEDS: GABAPENTIN 100 MG CAPSULE PO SCH ×3 (08:58→17:31)
[2021-04-19] MEDS: FUROSEMIDE 40 MG/4 ML VIAL IV SCH ×2 (08:58→17:30)
[2021-04-19] MEDS: BENAZEPRIL HCL 10 MG TABLET PO SCH (08:58)
[2021-04-19] MEDS: FERROUS SULFATE (325 MG) 325 MG/TAB TABLET PO SCH (08:58)
[2021-04-19] MEDS: METOPROLOL SUCCINATE 50 MG TAB.SR.24H PO SCH ×2 (08:59→17:30)
[2021-04-19] MEDS: APIXABAN 5 MG TABLET PO SCH ×2 (09:01→17:32)
[2021-04-19 11:37] VITALS: BP 117/83
[2021-04-19 12:00] VITALS: BP 117/83
[2021-04-19] MEDS: LEVOFLOXACIN 750 MG /D5W 150ML 150 ML IV SCH (15:37)
[2021-04-19 16:00] VITALS: BP 147/52
--- NOTE | 2021-04-19 19:20 | NUR ---
RN NOTES PT FOUND SUPINE WATCHING TV DISPLAYING NO S/S OF DISTRESS, PT ENDORSES NO PAIN AND IS BREATHING EVEN AND UNLABORED ON NC. PT REQUESTED TO BE CLEANED, RN EXPLAINED TO PT THAT 1900 AND 0700 IS FOR CHANGE OF SHIFT. PT VERBALIZED UNDERSTANDING. R FA 18G AND R HAND 20G IV ARE PATIENT AND INTACT. VSS, SBAR AND REPORT GIVEN TO EMS HELICOPTER PILOT RN. SAFETY MEASURES IN PLACE, BED LOCKED AND IN LOWEST POSITION, SIDE RAILS UPX2, CALL LIGHT WITHIN REACH, PT INSTRUCTED TO CALL FOR ASSISTANCE. PT ENDORSED IN STABLE CONDITION FOR SHREYAS.
--- NOTE | 2021-04-19 19:40 | NUR ---
RN NOTE PATIENT ALERT AND ORIENTED X4, ABLE TO MAKE NEEDS KNOWN. ON O2 4L VIA NASAL CANNULA, NO S/S OF RESPIRATORY DISTRESS. DENIES ANY PAIN OR DISCOMFORT. IV ACCESS ON RIGHT FOREARM #18 AND RIGHT HAND #20, PATENT AND INTACT. BED LOCKED AND IN LOWEST POSITION. CALL LIGHT WITHIN REACH. ALL NEEDS ANTICIPATED.
[2021-04-19 20:00] VITALS: BP 121/76
[2021-04-19] MEDS: CYCLOBENZAPRINE 10 MG TABLET PO SCH (21:49)
[2021-04-19] MEDS: SERTRALINE HCL 25 MG TABLET PO SCH (21:49)
[2021-04-19] MEDS: ATORVASTATIN 10 MG TABLET PO SCH (21:49)
[2021-04-20] VITALS: BP 98/70
--- NOTE | 2021-04-20 03:20 | NUR ---
RN NOTE TRANSFERRED PATIENT TO BED 315-1 PER [facility]S PROTOCOL. PATIENT IN STABLE CONDITION. ALL MEDICATIONS AND BELONGINGS TRANSFERRED WITH PATIENT. BEDSIDE REPORT GIVEN TO HOLDEN RN FOR CONTINUITY OF CARE.
[2021-04-20 04:00] VITALS: BP 127/64
[2021-04-20] MEDS: hydrALAZINE HCL 25 MG TABLET PO SCH ×3 (05:00→21:00)
--- NOTE | 2021-04-20 06:57 | NUR ---
ASSISTANT BRANCH MANAGER/CLOSING NOTE PATIENT RECEIVED FROM [facility] LIMA TURNER AT 0320, PATIENT STABLE UPON TRANSFER. PATIENT IS A/O X 4, ABLE TO MAKE NEEDS KNOWN. PATIENT ON 4 L OF O2 SUPPLEMENTATION, IN MILD DISTRESS, SOB AT REST. PATIENT'S SKIN ISSUES DOCUMENTED. ORIENTED PATIENT TO ROOM, RN, ACADEMY EDUCATION DIRECTOR, AND CHARGE NURSE. PATIENT'S BELONGINGS INVENTORIED. PATIENT HAS A R HAND 20 G AND R FA 18 G BOTH PATENT AND INTACT. ALL NEEDS MET AND ATTENDED. ALL ORDERS CARRIED OUT, HOB ELEVATED. SAFETY MEASURES IN PLACE: BED LOCKED AND IN LOWEST POSITION, CALL LIGHT WITHIN REACH, SIDE RAILS UP. WILL ENDORSE TO DAY SHIFT NURSE FOR SHREYAS. Addendum: 04/20/21 at 0701 by HUGH VELASCO RN TELE MONITOR READS AFIB 96 BPM.
--- NOTE | 2021-04-20 07:53 | NUR ---
DIGITAL CAMPAIGN MANAGER OPENING NOTES RECEIVED PATIENT IN BED A/O X 4, ABLE TO MAKE NEEDS KNOWN. PATIENT ON 4 L OF O2 SUPPLEMENTATION VIA NASAL CANNULA. NO SOB NOTED AT THIS TIME. PATIENT HAS A R HAND 20 G AND R FA 18 G BOTH PATENT AND INTACT. SAFETY MEASURES IN PLACED,BED IN LOWEST POSITION AND LOCKED. HOB ELEVATED. CALL LIGHT WITHIN REACH, SIDE RAILS UP. WILL CONTINUE TO MONITOR.
[2021-04-20 08:00] VITALS: BP 119/71
[2021-04-20 08:17] LABS: BASOPHILS # (AUTO) 0.1 K/uL (0.0-0.2); BASOPHILS % (AUTO) 0.6 % (0.0-2.0); EOSINOPHILS % (AUTO) 3.2 % (0.0-6.0); HEMATOCRIT 34 % (39-51); LYMPHOCYTES # (AUTO) 1.2 K/uL (0.8-4.8); LYMPHOCYTES % (AUTO) 10.3 % (20.0-44.0); MEAN CORPUSCULAR HGB CONC 33 g/dl (31.0-36.0); MEAN CORPUSCULAR VOLUME 95 fL (80-96); MONOCYTES # (AUTO) 1.2 K/uL (0.1-1.30); NEUTROPHILS # (AUTO) 9.2 K/uL (1.8-8.9); NEUTROPHILS % (AUTO) 75.9 % (43.0-81.0); PLATELET COUNT (AUTO) 293 K/uL (150-450); RED BLOOD CELL COUNT(AUTO) 3.53 MIL/uL (4.5-6.0); WHITE BLOOD COUNT (AUTO) 12.1 K/uL (4.3-11.0)
[2021-04-20] MEDS: DIGOXIN 0.125 MG TABLET PO SCH (08:49)
[2021-04-20] MEDS: GABAPENTIN 100 MG CAPSULE PO SCH ×3 (08:49→16:27)
[2021-04-20] MEDS: BENAZEPRIL HCL 10 MG TABLET PO SCH (08:49)
[2021-04-20 08:51] LABS: CALCIUM, SERUM 8.7 mg/dL (8.5-10.1); CREATININE 1.1 mg/dL (0.6-1.3); MAGNESIUM 2.2 mg/dL (1.8-2.4); POTASSIUM 3.9 mmol/L (3.5-5.1)
[2021-04-20] MEDS: FERROUS SULFATE (325 MG) 325 MG/TAB TABLET PO SCH (08:53)
[2021-04-20] MEDS: APIXABAN 5 MG TABLET PO SCH ×2 (08:53→16:30)
[2021-04-20] MEDS: FUROSEMIDE 40 MG/4 ML VIAL IV SCH ×2 (08:54→16:27)
[2021-04-20] MEDS: POTASSIUM CHLORIDE 20 MEQ TAB.PRT.SR PO SCH ×3 (08:58→16:27)
[2021-04-20] MEDS: METOPROLOL SUCCINATE 50 MG TAB.SR.24H PO SCH ×2 (08:59→16:31)
[2021-04-20 12:00] VITALS: BP 110/61
--- NOTE | 2021-04-20 12:55 | NUR ---
BAG MACHINE SET UP OPERATOR NOTES- WITHHELD APRESOLINE WITHHELD APRESOLINE DUE TO LOW BP 110/61.HR 88.WILL CONTINUE TO MONITOR.
[2021-04-20] MEDS: LEVOFLOXACIN 750 MG /D5W 150ML 150 ML IV SCH (15:18)
[2021-04-20 16:00] VITALS: BP 109/60
--- NOTE | 2021-04-20 16:31 | NUR ---
TABULAR TYPIST NOTES- WITHHOLD BP MEDS WITHHOLD METOPROLOL 100MG PO DUE TO LOW BP 109/60 MG/DL,HR 93 BPM. WILL CONTINUE TO MONITOR
--- NOTE | 2021-04-20 18:47 | NUR ---
HURRICANE TRACKER CLOSING NOTE PATIENT IN BED A/O X 4, ABLE TO MAKE NEEDS KNOWN. PATIENT ON 4 L OF O2 SUPPLEMENTATION VIA NASAL CANNULA. NO SOB NOTED AT THIS TIME. PATIENT HAS A R HAND 20 G AND R FA 18 G BOTH PATENT AND INTACT. SAFETY MEASURES IN PLACED, BED IN LOWEST POSITION AND LOCKED. HOB ELEVATED. CALL LIGHT WITHIN REACH, SIDE RAILS UP. WILL ENDORSE TO THE NEXT SHIFT..
--- NOTE | 2021-04-20 19:37 | NUR ---
MACHINIST GENERAL OPENING NOTES: RECEIVED PATIENT AWAKE IN BED,BED IN LOW POSITION, CALL LIGHTS WITHIN REACH, NO COMPLAIN OF PAIN AND DISCOMFORT AT THIS TIME, PATIENT IS A/OX4 ON BED REST ON TELE MONITORING AFB-113 UNCONTROLLED, NO SYMPTOMS WAS OBSERVED, IV LINE AT RT HAND #20 AND RFA #18 SL, PATIENT KEPT CLEAN AND DRY, ALL NEEDS MET, CONTINUE TO MONITOR.
[2021-04-20 20:00] VITALS: BP 100/67
[2021-04-20] MEDS: ACETAMINOPHEN 325 MG TABLET PO PRN (20:36)
--- NOTE | 2021-04-20 20:37 | NUR ---
CLIENT SERVICE AND CONSULTING MANAGER NOTE: TYLENOL 650 MG PO GIVEN FOR FEVER AT 100.4, ICE PACK PROVIDED ON BILATERAL ARMPIT.
--- NOTE | 2021-04-20 21:14 | NUR ---
RETAIL LOAN OFFICER NOTES: BP-100/67 BP MEDICINE FOR 2099 APRESOLINE 25MG PO NOT GIVEN
[2021-04-20] MEDS: ATORVASTATIN 10 MG TABLET PO SCH (22:41)
[2021-04-20] MEDS: CYCLOBENZAPRINE 10 MG TABLET PO SCH (22:41)
[2021-04-20] MEDS: SERTRALINE HCL 25 MG TABLET PO SCH (22:41)
[2021-04-21] VITALS: BP 115/68
[2021-04-21 04:30] VITALS: BP 131/79
[2021-04-21] MEDS: hydrALAZINE HCL 25 MG TABLET PO SCH ×3 (06:16→20:35)
--- NOTE | 2021-04-21 07:22 | NUR ---
AUTOMATION DEVELOPER CLOSING NOTES: PATIENT SLEEP IN BED COMFORTABLY, AROUSABLE TO VERBAL STIMULI, BED IN LOW POSITION, CALL LIGHTS WITHIN REACH, NO COMPLAIN OF PAIN AND DISCOMFORT AT THIS TIME,ON 02 INHALATION AT 4 LPM NO SOB NOTES, PATIENT IS A/4 ABLE TO MAKE NEEDS KNOWN KEPT CLEAN AND DRY ALL NEEDS MET, ENDORSE TO INCOMING SHIFT.
--- NOTE | 2021-04-21 07:30 | NUR ---
BONDERIZER OPERATOR OPENING NOTES: RECEIVED PATIENT AWAKE IN BED ALERT AND ORIENTED X4. BED IN LOW POSITION AND LOCKED.,CALL LIGHT AND TABLE WITHIN REACH, NO COMPLAIN OF PAIN AND DISCOMFORT AT THIS TIME, PATIENT IS ON BED REST ON TELE MONITORING AFB-94 CONTROLLED. IV LINE AT RT HAND #20 AND RFA #18 SL, PATENT . NO SWELLING , REDNESS OR BLEEDING NOTED. BREATHS EVEN AND UNLABORED . NO RESPIRATORY DISTRESS NOTED. ON O2 INHALATION VIA NASAL CANNULA @ 4 L/MIN.NO SOB NOTED.WILL CONTINUE TO MONITOR.
[2021-04-21 08:00] VITALS: BP 125/78
[2021-04-21] MEDS: FUROSEMIDE 40 MG/4 ML VIAL IV SCH ×2 (09:26→16:41)
[2021-04-21] MEDS: GABAPENTIN 100 MG CAPSULE PO SCH ×3 (09:26→16:42)
[2021-04-21] MEDS: DIGOXIN 0.125 MG TABLET PO SCH (09:27)
[2021-04-21] MEDS: FERROUS SULFATE (325 MG) 325 MG/TAB TABLET PO SCH (09:27)
[2021-04-21] MEDS: BENAZEPRIL HCL 10 MG TABLET PO SCH (09:27)
[2021-04-21] MEDS: POTASSIUM CHLORIDE 20 MEQ TAB.PRT.SR PO SCH ×3 (09:27→16:41)
[2021-04-21] MEDS: METOPROLOL SUCCINATE 50 MG TAB.SR.24H PO SCH ×2 (09:28→17:00)
[2021-04-21] MEDS: APIXABAN 5 MG TABLET PO SCH ×2 (09:29→16:43)
[2021-04-21 12:00] VITALS: BP 101/66
--- NOTE | 2021-04-21 12:43 | NUR ---
TELE/RN NOTES- OXYGEN PATIENT'S OXYGEN AT ROOM AIR IS 87%. PATIENT NOTED TO HAVE SHORTNESS OF BREATH WITHOUT OXYGEN MACHINE. WILL MONITOR.
--- NOTE | 2021-04-21 13:10 | NUR ---
HEADER SET UP OPERATOR NOTES, WITHHELD MEDICATION HELD HYDRALAZINE DUE TO GM=130/66, P=56
[2021-04-21 13:15] LABS: ABG BASE EXCESS 8.3 mmol/L; ABG OXYGEN SATURATION 91.9 % (92.0-98.5); ABG PCO2 55.4 mmHg (35.0-45.0); ABG PH 7.411 (7.350-7.450); ABG PO2 68.3 mmHg (75.0-100.0); COHb 0.3 % (0.5-1.5); MetHb 0.1 % (0.0-1.5); O2Hb 91.5 % (94.0-97.0); SITE, ABG Left Radial; VENT MODE, BG NC 32%
[2021-04-21] MEDS: LEVOFLOXACIN 750 MG /D5W 150ML 150 ML IV SCH (15:57)
[2021-04-21 16:00] VITALS: BP 113/50
--- NOTE | 2021-04-21 17:16 | NUR ---
FURNACE BUILDER NOTES, WITHHELD MEDICATION. HELD METOPROLOL FOR WM=833/50. P=78.
--- NOTE | 2021-04-21 19:00 | NUR ---
RN NOTE RECEIVED PATIENT IN BED RESTING ALERT ORIENTED X4 VERBALLY RESPONSIVE ON 4L OXYGEN VIA NASAL CANNULA, O2:94% IV SITE IS ON RIGHT HAND INTACT PATENT,INCONTINENT TO BOWEL/BLADDER, SAFETY MEASURE IMPLEMENT BED IN LOW POSITION AND LOCKED,HEAD OF THE BED ELEVATED,CALL LIGHT WITHIN REACH CONTINUE TO MONITOR.
--- NOTE | 2021-04-21 19:32 | NUR ---
SENIOR GRADUATE ADVISOR CLOSING NOTES: PATIENT AWAKE IN BED ALERT AND ORIENTED X4. BED IN LOW POSITION AND LOCKED.,CALL LIGHT AND TABLE WITHIN REACH, NO COMPLAIN OF PAIN AND DISCOMFORT AT THIS TIME, PATIENT IS ON BED REST ON TELE MONITORING . IV LINE AT RT HAND #20 AND RFA #18 SL, PATENT . NO SWELLING , REDNESS OR BLEEDING NOTED. BREATHS EVEN AND UNLABORED . NO RESPIRATORY DISTRESS NOTED. ON O2 INHALATION VIA NASAL CANNULA @ 4 L/MIN.NO SOB NOTED.ALL DUE MEDS GIVEN ORDERED.WILL ENDORSE ONCOMING SHIFT FOR SHREYAS.
[2021-04-21 20:00] VITALS: BP 117/72
[2021-04-21] MEDS: CYCLOBENZAPRINE 10 MG TABLET PO SCH (21:43)
[2021-04-21] MEDS: ATORVASTATIN 10 MG TABLET PO SCH (21:44)
[2021-04-21] MEDS: SERTRALINE HCL 25 MG TABLET PO SCH (21:44)
[2021-04-22] VITALS (7 sets, daily range): BP systolic 108–155; BP diastolic 61–79
[2021-04-22] MEDS: hydrALAZINE HCL 25 MG TABLET PO SCH ×3 (05:09→21:00)
--- NOTE | 2021-04-22 06:46 | NUR ---
RN NOTE PATIENT REMAINS ON ALERT ORIENTEDX4 VERBALLY RESPONSIVE ON 4L OXYGEN VIA NASAL CANNULA O2:98% NO SOB NOT ACUTE DISTRESS NOTED ALL DUE MEDS GIVEN MD ORDERED KEPT CLEAN AND DRY ALL THE TIME ALL NEEDS MET ENDORSE NEXT COMING SHIFT FOR CONTINUATION OF CARE.
--- NOTE | 2021-04-22 07:36 | NUR ---
RN NOTES RECEIVED PT A/OX4, NO RESPIRATORY DISTRESS, RR IS EVEN AND NONLABORED, ON BEDREST. CALL LIGHT IS WITHIN REACH, BED SAFETY LOCK ON, IN LOWEST POSITION, SIDE RAILX2.
[2021-04-22] MEDS: GABAPENTIN 100 MG CAPSULE PO SCH ×3 (08:35→17:50)
[2021-04-22] MEDS: FERROUS SULFATE (325 MG) 325 MG/TAB TABLET PO SCH (08:36)
[2021-04-22] MEDS: DIGOXIN 0.125 MG TABLET PO SCH (08:36)
[2021-04-22] MEDS: METOPROLOL SUCCINATE 50 MG TAB.SR.24H PO SCH ×2 (08:36→17:50)
[2021-04-22] MEDS: POTASSIUM CHLORIDE 20 MEQ TAB.PRT.SR PO SCH ×3 (08:37→17:47)
[2021-04-22] MEDS: BENAZEPRIL HCL 10 MG TABLET PO SCH (08:37)
[2021-04-22] MEDS: APIXABAN 5 MG TABLET PO SCH ×2 (08:38→17:48)
[2021-04-22] MEDS: FUROSEMIDE 40 MG/4 ML VIAL IV SCH ×2 (10:33→17:50)
[2021-04-22 11:20] LABS: ABG BASE EXCESS 7.8 mmol/L; ABG OXYGEN SATURATION 95.1 % (92.0-98.5); ABG PCO2 50.7 mmHg (35.0-45.0); ABG PH 7.435 (7.350-7.450); ABG PO2 81.6 mmHg (75.0-100.0); COHb 0.3 % (0.5-1.5); MetHb 0.1 % (0.0-1.5); O2Hb 94.7 % (94.0-97.0); SITE, ABG Left Radial; VENT MODE, BG Nasal Cannula
[2021-04-22] MEDS: LEVOFLOXACIN 750 MG /D5W 150ML 150 ML IV SCH (16:12)
--- NOTE | 2021-04-22 19:07 | NUR ---
RN CLOSING NOTES PT IS A/OX4, BREATHING EVEN BILATERALLY, NONLABORED ON ROOM AIR. ALL MEDS ADMINISTERED VIA MD ORDER. CALL LIGHT IS WITHIN REACH, BED SAFETY LOCK ON, IN LOWEST POSITION, SIDERAIL X2. WILL ENDORSE TO WELL DRILL OPERATOR ROTARY DRILL FOR CONTINUED CARE.
--- NOTE | 2021-04-22 20:03 | NUR ---
WOOD DOWEL MACHINE OPERATOR NOTE PATIENT IN ROOM. A/X4. ABLE TO MAKE NEEDS KNOWN. NO S/S OF APPARENT DISTRESS ON 4L OXYGEN VIA NC. NO C/O PAIN AT THIS TIME. NEEDS ATTENDED. AWAITING FOR DISCHARGED. LIMA MAGALLON AWAITING TO GIVE REPORT TO THE FACILITY PATIENT IS GETTING DISCHARGED IN. NEEDS ATTENDED AT THIS TIME.
[2021-04-22] MEDS: ATORVASTATIN 10 MG TABLET PO SCH (22:00)
[2021-04-22] MEDS: CYCLOBENZAPRINE 10 MG TABLET PO SCH (22:00)
[2021-04-22] MEDS: SERTRALINE HCL 25 MG TABLET PO SCH (22:00)
--- NOTE | 2021-04-22 23:37 | NUR ---
VP EMERGING MEDIA NOTE PATIENT PICKED UP BY [facility] AT THIS TIME. PATIENT IN STABLE CONDITION. CLEANED AND DISCHARGED WITH HOSPITAL GOWN. DISCHARGED PAPER SIGNED BY PATIENT AND BY LIMA SCHWARZ. BELONGINGS SIGNED AND WITH PATIENT. DISCHARGE PACKET GIVEN TO EMT. WRIST BAND DISCARDED. TELE MONITOR TAKEN OFF. PERIPHERAL IV LINES TAKEN OFF. V/S FOLLOWS: BP 108/68, HR-93, RR-20, T- 98.0, 02 SATURATION 99%. REPORT GIVEN TO NILO LEWIS BY LIMA SCHWARZ.
== END 2021-04-22 23:40 | DRG 194 ==
LOC: ER 08:33 → TELE1 11:40 → TELE 04-20 03:16
PROVIDERS: ADMIT Nurse Practitioner Acute Care; ATTEND Internal Medicine
DX: I11.0 Hypertensive heart disease with heart failure (principal); J96.01 Acute respiratory failure with hypoxia; Z87.891 Personal history of nicotine dependence; I50.33 Acute on chronic diastolic (congestive) heart failure; D68.59 Other primary thrombophilia; I42.9 Cardiomyopathy, unspecified; I27.20 Pulmonary hypertension, unspecified; I48.91 Unspecified atrial fibrillation; Z86.73 Personal history of transient ischemic attack (TIA), and cerebral infarction without residual deficits; Z20.822 Contact with and (suspected) exposure to COVID-19; E66.01 Morbid (severe) obesity due to excess calories; Z68.41 Body mass index [BMI] 40.0-44.9, adult; Z98.84 Bariatric surgery status; E87.6 Hypokalemia; E78.5 Hyperlipidemia, unspecified; M10.9 Gout, unspecified; G47.33 Obstructive sleep apnea (adult) (pediatric); Z79.01 Long term (current) use of anticoagulants; Z98.890 Other specified postprocedural states; Z79.899 Other long term (current) drug therapy; D72.829 Elevated white blood cell count, unspecified; I70.0 Atherosclerosis of aorta; Z99.3 Dependence on wheelchair
CPT/HCPCS: 36415; 36600; 71045-TC; 80048-TC; 80053-TC; 80061-TC; 82728-TC; 82803-TC; 83540-TC; 83735-TC; 83880; 84100-TC; 84484-TC; 85025-TC; 85730-TC; 87081-TC; 93307-TC; 93970-TC; 94799-TC; 97112-TC; 97530-TC; A4349; G0378; J1940; J1956; J3490; J7040; J7060; U0003

== ENCOUNTER 2021-04-23 04:38 | Inpatient (IN) | payer OTHER ==
[~2021-04-23] VITALS: Ht 188 cm; Wt 152.9 kg
[~2021-04-23 04:38] MED LIST changes: -ACET-868 PO; +APIX5TAB PO; +CYCL5TAB PO; +DIGO125T PO; -DOCU-141 PO; +FERR325T24 PO; -FLUT16SP BNOSTRILS; -FLUT1BLS IH; -HYDR-4354 PO; -IBUP-1955 PO; -LABE200T5 PO; -LORA10TA7 PO; +METO-358 PO; -METO2.5T2 PO; -OMEP40CA21 PO; +ROSU5TAB13 PO; +SPIR25TA6 PO; -TRAZ-182 PO
[2021-04-23] MEDS ORDERED: DILTIAZEM HCL 50 MG IV IV ONE (05:00)
--- NOTE | 2021-04-23 05:00 | NUR ---
BIBRA 61 FROM [facility] C/O SOB. 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 FOUND SAT 75% WITH NO O2. UPON TRIAGE 100% ON NR. PATIENT ALERT AND ORIENTED X3. BROUGHT IN BY STRETCHER ON A NON REBREATHER MASK @ 6L
--- NOTE | 2021-04-23 05:12 | NUR ---
BLOOD AND COVID SWAB SENT TO LAB
[2021-04-23] MEDS ORDERED: ACETAMINOPHEN ES 500 MG TABLET ONE (05:18)
[2021-04-23] MEDS ORDERED: DILTIAZEM HCL 50 MG IV ONE (05:18)
[2021-04-23 05:19] LABS: MONOCYTES # (AUTO) 1.2 K/uL (0.1-1.30); MONOCYTES % (AUTO) 14.8 % (2.0-12.0); NEUTROPHILS # (AUTO) 6.1 K/uL (1.8-8.9)
[2021-04-23] MEDS ORDERED: ACETAMINOPHEN 325 MG TABLET PO ONE (05:30)
[2021-04-23 05:32] LABS: BASOPHILS % (AUTO) 0.5 % (0.0-2.0); EOSINOPHILS % (AUTO) 0.6 % (0.0-6.0); HEMATOCRIT 30 % (39-51); LYMPHOCYTES # (AUTO) 0.6 K/uL (0.8-4.8); LYMPHOCYTES % (AUTO) 7.9 % (20.0-44.0); MEAN CORPUSCULAR HGB CONC 33 g/dl (31.0-36.0); MEAN CORPUSCULAR VOLUME 96 fL (80-96); NEUTROPHILS % (AUTO) 76.2 % (43.0-81.0); PLATELET COUNT (AUTO) 280 K/uL (150-450); RED BLOOD CELL COUNT(AUTO) 3.13 MIL/uL (4.5-6.0)
[2021-04-23 05:36] LABS: POTASSIUM 3.8 mmol/L (3.5-5.1)
--- NOTE | 2021-04-23 05:45 | NUR ---
CALL FROM LAB. COVID ANTIGEN POSITIVE.
[2021-04-23 05:47] LABS: ALBUMIN 2.8 g/dL (3.4-5.0); BILIRUBIN,DIRECT 0.3 mg/dL (0.0-0.2); BILIRUBIN,TOTAL 0.5 mg/dL (0.2-1.0); TOTAL PROTEIN, SERUM 7.9 g/dL (6.4-8.2)
[2021-04-23] MEDS ORDERED: DILTIAZEM HCL 25 MG IV ONE (05:59)
[2021-04-23] MEDS ORDERED: DILTIAZEM HCL IV 125 MG in IV NS 0.9% 100 ML IV PRN (06:00)
[2021-04-23 06:30] LABS: C-REACTIVE PROTEIN 8.4 mg/dL (0.0-0.9)
[2021-04-23] MEDS ORDERED: CEFEPIME 1 GM in IV D5W 50 ML IV ONE (06:30)
[2021-04-23] MEDS ORDERED: ONDANSETRON HCL/PF 4 MG/2 ML VIAL IVP PRN (06:30)
[2021-04-23] MEDS ORDERED: ZOLPIDEM TARTRATE 5 MG TABLET PO PRN (06:30)
[2021-04-23] MEDS ORDERED: Z GUARD REMEDY 2 OZ OINT TP PRN (06:30)
[2021-04-23] MEDS ORDERED: HYDROCODONE/APAP 5/325MG TABLET PO PRN (06:30)
[2021-04-23] MEDS ORDERED: MAG HYDROX/AL HYDROX/SIMETH 30 ML UDC PO PRN (06:30)
[2021-04-23] MEDS ORDERED: VANCOMYCIN 1 GM in IV D5W 250 ML IV ONE (06:30)
[2021-04-23] MEDS ORDERED: ACETAMINOPHEN 325 MG TABLET PO PRN (06:30)
[2021-04-23 06:31] LABS: BAND % (MANUAL) 1 % (0.0-5.0); EOSINOPHILS % (MANUAL) 1 % (0-4); LYMPHOCYTES % (MANUAL) 8 % (16-48); MONOCYTES % (MANUAL) 8 % (0-11.0); NEUTROPHILS % (MANUAL) 82 (42-76)
[2021-04-23] MEDS ORDERED: CEFEPIME 1 GM VIAL ONE (07:11)
[2021-04-23] MEDS ORDERED: FUROSEMIDE 40 MG TABLET PO SCH (08:00)
--- NOTE | 2021-04-23 08:31 | NUR ---
COVID PCR DONE AND SENT TO LAB
--- NOTE | 2021-04-23 08:50 | NUR ---
MID LINE RN AT BEDSIDE.
[2021-04-23] MEDS: GABAPENTIN 100 MG CAPSULE PO SCH ×3 (09:00→16:59)
[2021-04-23] MEDS ORDERED: DEXAMETHASONE SOD PHOSPHATE 10 MG/ML VIAL IV SCH (09:00)
[2021-04-23] MEDS: POTASSIUM CHLORIDE 20 MEQ TAB.PRT.SR PO SCH ×3 (09:00→16:59)
[2021-04-23] MEDS ORDERED: FUROSEMIDE 40 MG/4 ML VIAL IV SCH ×2 (09:00→17:00)
--- NOTE | 2021-04-23 09:40 | NUR ---
going to tele 105.
--- NOTE | 2021-04-23 09:49 | NUR ---
ATTEMPTED TO GIVE REPORT, WILL CALL AGAIN
--- NOTE | 2021-04-23 10:14 | NUR ---
REPORT GIVEN TO MAYA AMATO SHREYAS
--- NOTE | 2021-04-23 10:30 | NUR ---
RN NOTES RECEIVED PT FROM ER. A/O X4. ON 10L O2 VIA SIMPLE MASK, SATURATING @100%. NO SOB OR ANY S/S OF RESPIRATORY DISTRESS NOTED. DENIES PAIN. IV ACCESS ON L AC #18 AND AMBER MIDLINE #18 BOTH INTACT, PATENT AND FLUSHED. PLACED IN BED. BED LOCKED AND IN LOWEST POSITION WITH SIDE RAILS UP X3. CALL LIGHT WITHIN REACH. WILL CONTINUE TO MONITOR.
[2021-04-23 12:00] VITALS: BP 128/50
[2021-04-23 12:35] LABS: C-REACTIVE PROTEIN 7.8 mg/dL (0.0-0.9)
[2021-04-23 12:39] LABS: ALBUMIN 2.8 g/dL (3.4-5.0); BILIRUBIN,DIRECT 0.2 mg/dL (0.0-0.2); BILIRUBIN,TOTAL 0.5 mg/dL (0.2-1.0)
[2021-04-23] MEDS: DEXAMETHASONE SOD PHOSPHATE 10 MG/ML VIAL IV SCH (12:45)
[2021-04-23] MEDS: PANTOPRAZOLE 40 MG TABLET.DR PO SCH (12:45)
[2021-04-23] MEDS: DIGOXIN 0.125 MG TABLET PO SCH (12:46)
[2021-04-23] MEDS: SPIRONOLACTONE 25 MG TABLET PO SCH (12:46)
[2021-04-23] MEDS: METOPROLOL TARTRATE 50 MG TABLET PO SCH ×2 (12:47→21:21)
[2021-04-23] MEDS: FERROUS SULFATE (325 MG) 325 MG/TAB TABLET PO SCH (12:47)
[2021-04-23] MEDS: BENAZEPRIL HCL 20 MG TABLET PO SCH (12:48)
[2021-04-23] MEDS: APIXABAN 5 MG TABLET PO SCH ×2 (13:01→17:01)
[2021-04-23 16:00] VITALS: BP 109/59
--- NOTE | 2021-04-23 18:50 | NUR ---
RN CLOSING NOTES NO SIGNIFICANT CHANGES THROUGHOUT THE SHIFT. NO SOB OR ANY S/S OF RESPIRATORY DISTRESS NOTED. DENIES PAIN. ALL DUE MEDS GIVEN. NEEDS ATTENDED. SAFETY MEASURES IMPLEMENTED. CALL LIGHT WITHIN REACH. BED LOCKED AND IN LOWEST POSITION WITH SIDE RAILS UP X3. WILL ENDORSE TO NIGHT RN FOR SHREYAS.
--- NOTE | 2021-04-23 19:30 | NUR ---
RN NOTES RECEIVED PT FOR CONTINUITY OF CARE. PATIENT A/OX4 IN NO S/SX OF ACUTE DISTRESS AT THIS TIME; CURRENTLY ON 10L OF 02 VIA SIMPLE MASK; WITH 02 SAT >95% AT THIS TIME. WILL ENSURE SAFETY MEASURES WITHIN THE SHIFT. PATIENT BED ALARM IS ON. HEAD OF BED ELEVATED. BED IS LOCKED, IN LOWEST POSITION AND SIDE RAILS UP. CALL LIGHT WITHIN REACH OF THE PATIENT. APPLICABLE ISOLATION PRECAUTIONS IN PLACE. WILL CONTINUE TO MONITOR AND REASSESS FOR ANY CHANGES AND WILL CARRY OUT ANY ONGOING AND ACTIVE MD ORDER.
[2021-04-23 20:00] VITALS: BP 96/54
[2021-04-23] MEDS: ATORVASTATIN 10 MG TABLET PO SCH (21:22)
[2021-04-23] MEDS: SERTRALINE HCL 25 MG TABLET PO SCH (21:22)
[2021-04-24] VITALS: BP 109/77
[2021-04-24 04:00] VITALS: BP 126/63
--- NOTE | 2021-04-24 04:00 | NUR ---
RN NOTES NO NOTED CHANGES IN PATIENT CONDITION AT THIS TIME; PATIENT VITALS STABLE, NO SIGNS OF ACUTE RESPIRATORY DISTRESS. AM PATIENT CARE RENDERED.WILL CONTINUE TO MONITOR AND REASSESS FOR ANY CHANGES THROUGHOUT THE SHIFT.
--- NOTE | 2021-04-24 06:52 | NUR ---
RN CLOSING NOTE: PATIENT REMAINS IN ROOM IN NO SIGNS OF RESPIRATORY DISTRESS, PATIENT STILL ON 10L OF 02 VIA SIMPLE MASK ;TOLERATING WELL SATURATING @ >95% SP02. SAFETY MEASURES IMPLEMENTED, BED IN LOWEST POSITION, LOCKED, SIDE RAILS UP, CALL LIGHT WITHIN REACH. ALL NEEDS AND ORDERS ADDRESSED DURING THE SHIFT. IV ACCESS MAINTAINED INTACT, SECURED AND FLUSHING WELL. ALL DUE MEDS GIVEN ORDERED & SCHEDULED ; PATIENT TOLERATED WELL. PATIENT KEPT CLEAN AND COMFORTABLE WITHIN THE SHIFT. PATIENT ENDORSED TO INCOMING SHIFT RN WITH STABLE VITAL SIGN AND FOR CONTINUITY OF CARE.
[2021-04-24 06:53] LABS: BASOPHILS % (AUTO) 0.3 % (0.0-2.0); EOSINOPHILS % (AUTO) 0.1 % (0.0-6.0); HEMATOCRIT 31 % (39-51); HEMOGLOBIN 10.2 g/dL (13.5-17.5); LYMPHOCYTES # (AUTO) 0.4 K/uL (0.8-4.8); LYMPHOCYTES % (AUTO) 8.5 % (20.0-44.0); MEAN CORPUSCULAR HGB CONC 33 g/dl (31.0-36.0); MEAN CORPUSCULAR VOLUME 95 fL (80-96); MONOCYTES % (AUTO) 20.6 % (2.0-12.0); NEUTROPHILS # (AUTO) 3.5 K/uL (1.8-8.9); NEUTROPHILS % (AUTO) 70.5 % (43.0-81.0); PLATELET COUNT (AUTO) 268 K/uL (150-450); RED BLOOD CELL COUNT(AUTO) 3.28 MIL/uL (4.5-6.0); WHITE BLOOD COUNT (AUTO) 4.9 K/uL (4.3-11.0)
--- NOTE | 2021-04-24 07:00 | NUR ---
RN NOTES PATIENT A/OX4 IN NO S/SX OF ACUTE DISTRESS AT THIS TIME; CURRENTLY ON 10L OF 02 VIA SIMPLE MASK; O2 SAT WNL , PATIENT BED ALARM IS ON. HEAD OF BED ELEVATED. BED IS LOCKED, IN LOWEST POSITION AND SIDE RAILS UP. CALL LIGHT WITHIN REACH OF THE PATIENT. APPLICABLE ISOLATION PRECAUTIONS IN PLACE. WILL CONTINUE TO MONITOR .
[2021-04-24 07:37] LABS: THYROID STIMULATING HORMONE 0.42 uIU/mL (0.358-3.74)
[2021-04-24 07:47] LABS: CALCIUM, SERUM 8.1 mg/dL (8.5-10.1); MAGNESIUM 2.4 mg/dL (1.8-2.4); PHOSPHORUS 3.7 mg/dL (2.5-4.9); POTASSIUM 4.3 mmol/L (3.5-5.1)
[2021-04-24 08:00] VITALS: BP 128/81
[2021-04-24 08:38] LABS: ABG BASE EXCESS 6.2 mmol/L; ABG PCO2 62.7 mmHg (35.0-45.0); ABG PH 7.345 (7.350-7.450); ABG PO2 189.2 mmHg (75.0-100.0); AaDO2 169.6 mmHg; COHb 0.3 % (0.5-1.5); MetHb 0.3 % (0.0-1.5); O2Hb 98.4 % (94.0-97.0); SITE, ABG Right Radial; VENT MODE, BG SIMPLE MASK
[2021-04-24] MEDS: FERROUS SULFATE (325 MG) 325 MG/TAB TABLET PO SCH (08:46)
[2021-04-24] MEDS: GABAPENTIN 100 MG CAPSULE PO SCH ×3 (08:46→16:09)
[2021-04-24] MEDS: BENAZEPRIL HCL 20 MG TABLET PO SCH (08:46)
[2021-04-24] MEDS: METOPROLOL TARTRATE 50 MG TABLET PO SCH ×2 (08:47→20:47)
[2021-04-24] MEDS: DIGOXIN 0.125 MG TABLET PO SCH (08:47)
[2021-04-24] MEDS: PANTOPRAZOLE 40 MG TABLET.DR PO SCH (08:47)
[2021-04-24] MEDS: SPIRONOLACTONE 25 MG TABLET PO SCH (08:47)
[2021-04-24] MEDS: DEXAMETHASONE SOD PHOSPHATE 10 MG/ML VIAL IV SCH (08:47)
[2021-04-24] MEDS: APIXABAN 5 MG TABLET PO SCH ×2 (08:48→16:09)
[2021-04-24] MEDS: POTASSIUM CHLORIDE 20 MEQ TAB.PRT.SR PO SCH ×3 (08:48→16:09)
[2021-04-24] MEDS ORDERED: BUMETANIDE INJ 16 MG in IV NS 0.9% 16 ML IV ONE (09:00)
[2021-04-24 09:46] LABS: LYMPHOCYTES % (MANUAL) 11 % (16-48); MONOCYTES % (MANUAL) 21 % (0-11.0); NEUTROPHILS % (MANUAL) 68 (42-76)
--- NOTE | 2021-04-24 10:00 | NUR ---
RN NOTES PT ON BUMEX IV , CONDOM CATH APPLIED ,
[2021-04-24 12:00] VITALS: BP 148/69
[2021-04-24 16:00] VITALS: BP 115/54
--- NOTE | 2021-04-24 18:00 | NUR ---
RN NOTES NO SIGNIFICANT CHANGES NOTED ON THIS SHIFT, TOTAL OF 2500 URINE OUTPUT DRAINED , PT AT REST , WILL ENDORSE TO WHOLESALE MANAGER NURSE FOR CONTINUITY OF CARE .
--- NOTE | 2021-04-24 19:30 | NUR ---
RN NOTES RECEIVED PT FOR CONTINUITY OF CARE. PATIENT A/OX4 IN NO S/SX OF ACUTE DISTRESS AT THIS TIME; CURRENTLY ON 5L OF 02 VIA NC; WITH 02 SAT >95% AT THIS TIME. WILL ENSURE SAFETY MEASURES WITHIN THE SHIFT. PATIENT BED ALARM IS ON. HEAD OF BED ELEVATED. BED IS LOCKED, IN LOWEST POSITION AND SIDE RAILS UP. CALL LIGHT WITHIN REACH OF THE PATIENT. APPLICABLE ISOLATION PRECAUTIONS IN PLACE. WILL CONTINUE TO MONITOR AND REASSESS FOR ANY CHANGES AND WILL CARRY OUT ANY ONGOING AND ACTIVE MD ORDER.
[2021-04-24 20:00] VITALS: BP 118/55
[2021-04-24] MEDS: MAGNESIUM HYDROXIDE 30 ML UDC PO PRN (21:03)
[2021-04-24] MEDS: ATORVASTATIN 10 MG TABLET PO SCH (21:14)
[2021-04-24] MEDS: SERTRALINE HCL 25 MG TABLET PO SCH (21:14)
[2021-04-25] VITALS: BP 117/62
--- NOTE | 2021-04-25 02:49 | NUR ---
RN NOTES PATIENT REMAINED TO BE IN NO SIGNS OF ACUTE RESPIRATORY DISTRESS , VITAL SIGNS WNL AT THIS TIME. MAJOR ASSEMBLER MADE AWARE. WILL CONTINUE TO MONITOR AND REASSESS FOR ANY CHANGES THROUGHOUT THE SHIFT.
[2021-04-25 04:00] VITALS: BP 118/61
--- NOTE | 2021-04-25 06:45 | NUR ---
RN CLOSING NOTE: PATIENT REMAINS IN ROOM IN NO SIGNS OF RESPIRATORY DISTRESS, PATIENT STILL ON 5L OF 02 VIA NC ;TOLERATING WELL SATURATING @ >95% SP02. SAFETY MEASURES IMPLEMENTED, BED IN LOWEST POSITION, LOCKED, SIDE RAILS UP, CALL LIGHT WITHIN REACH. ALL NEEDS AND ORDERS ADDRESSED DURING THE SHIFT. IV ACCESS MAINTAINED INTACT, SECURED AND FLUSHING WELL. ALL DUE MEDS GIVEN ORDERED & SCHEDULED ; PATIENT TOLERATED WELL. PATIENT KEPT CLEAN AND COMFORTABLE WITHIN THE SHIFT. PATIENT ENDORSED TO INCOMING SHIFT RN WITH STABLE VITAL SIGN AND FOR CONTINUITY OF CARE.
[2021-04-25 06:57] LABS: BASOPHILS % (AUTO) 0.3 % (0.0-2.0); HEMATOCRIT 32 % (39-51); HEMOGLOBIN 10.5 g/dL (13.5-17.5); LYMPHOCYTES # (AUTO) 0.9 K/uL (0.8-4.8); LYMPHOCYTES % (AUTO) 16.8 % (20.0-44.0); MEAN CORPUSCULAR HGB CONC 33 g/dl (31.0-36.0); MEAN CORPUSCULAR VOLUME 96 fL (80-96); MONOCYTES # (AUTO) 1.1 K/uL (0.1-1.30); MONOCYTES % (AUTO) 20.5 % (2.0-12.0); NEUTROPHILS # (AUTO) 3.3 K/uL (1.8-8.9); NEUTROPHILS % (AUTO) 62.4 % (43.0-81.0); PLATELET COUNT (AUTO) 300 K/uL (150-450); RED BLOOD CELL COUNT(AUTO) 3.35 MIL/uL (4.5-6.0); WHITE BLOOD COUNT (AUTO) 5.2 K/uL (4.3-11.0)
[2021-04-25 07:12] LABS: ALBUMIN 2.8 g/dL (3.4-5.0); BILIRUBIN,TOTAL 0.2 mg/dL (0.2-1.0); CALCIUM, SERUM 8.4 mg/dL (8.5-10.1); MAGNESIUM 2.4 mg/dL (1.8-2.4); POTASSIUM 4.3 mmol/L (3.5-5.1); TOTAL PROTEIN, SERUM 8.1 g/dL (6.4-8.2)
--- NOTE | 2021-04-25 07:39 | NUR ---
PHOTO INTERN OPENING NOTES RECEIVED PATIENT IN BED, ASLEEP. PATIENT ON OXYGEN THERAPY AT 5 LPM VIA NASAL CANULA; BREATHING EVEN AND UNLABORED AT THIS TIME. TELE MONITOR WITH A CURRENT READING OF CONTROLLED A-FIB [address] AMBER MIDLINE INTACT AND LAC G #18 PRESENT; SL. SAFETY PRECAUTIONS IN PLACE; BED IN LOW POSITION AND LOCKED, RAILS UP X2, CALL LIGHT WITHIN REACH. WILL CONTINUE TO MONITOR PATIENT.
[2021-04-25] MEDS: POTASSIUM CHLORIDE 20 MEQ TAB.PRT.SR PO SCH ×3 (08:20→16:22)
[2021-04-25] MEDS: PANTOPRAZOLE 40 MG TABLET.DR PO SCH (08:20)
[2021-04-25] MEDS: GABAPENTIN 100 MG CAPSULE PO SCH ×3 (08:20→16:22)
[2021-04-25] MEDS: FERROUS SULFATE (325 MG) 325 MG/TAB TABLET PO SCH (08:20)
[2021-04-25] MEDS: DIGOXIN 0.125 MG TABLET PO SCH (08:21)
[2021-04-25] MEDS: SPIRONOLACTONE 25 MG TABLET PO SCH (08:21)
[2021-04-25] MEDS: DEXAMETHASONE SOD PHOSPHATE 10 MG/ML VIAL IV SCH (08:21)
[2021-04-25] MEDS: METOPROLOL TARTRATE 50 MG TABLET PO SCH ×2 (08:22→21:15)
[2021-04-25] MEDS: APIXABAN 5 MG TABLET PO SCH ×2 (08:23→16:23)
[2021-04-25] MEDS: BENAZEPRIL HCL 20 MG TABLET PO SCH (08:24)
[2021-04-25 08:41] LABS: LYMPHOCYTES % (MANUAL) 15 % (16-48); MONOCYTES % (MANUAL) 19 % (0-11.0); NEUTROPHILS % (MANUAL) 66 (42-76)
[2021-04-25] MEDS ORDERED: BUMETANIDE INJ 16 MG in IV NS 0.9% 16 ML IV ONE (09:00)
[2021-04-25 09:50] VITALS: BP 130/69
[2021-04-25] MEDS: METOLAZONE 2.5 MG TABLET PO SCH (11:02)
[2021-04-25 12:44] VITALS: BP 98/56
[2021-04-25 17:06] VITALS: BP 103/53
[2021-04-25] MEDS: MAGNESIUM HYDROXIDE 30 ML UDC PO PRN (18:21)
--- NOTE | 2021-04-25 18:30 | NUR ---
SITE RELIABILITY ENGINEER CLOSING NOTES PATIENT REMAINS IN BED, AWAKE, A/ X4. PATIENT ON OXYGEN THERAPY AT 5 LPM VIA NASAL CANULA; BREATHING EVEN AND UNLABORED AT THIS TIME. TELE MONITOR WITH A CURRENT READING OF A-FIB [address] CON[address] WITH A DAILY OUTPUT OF 3600 MLS. AMBER MIDLINE INTACT AND LAC G #18 PRESENT; SL. ALL NEEDS ATTENDED DURING THE DAY. SAFETY PRECAUTIONS IN PLACE; BED IN LOW POSITION AND LOCKED, RAILS UP X2, CALL LIGHT WITHIN REACH. WILL ENDORSE TO PHYSICIAN INTENSIVIST NURSE FOR SHREYAS.
--- NOTE | 2021-04-25 19:30 | NUR ---
VENEER JOINTER NOTES RECEIVED LAYING COMFORTABLY ON BED,BREATHING NON LABORED, O2 IN USED AT 5L/NC TO KEEP O2 SAT ABOVE 90%.A/O X4,VERBALIZED NEEDS,RAPID TEST FOR COVID POSITIVE,PENDING RESULT FOR PCR.AFIB CONTROLLED ON TELE MONITOR, RATE OF 102.FLUID RESTRICTIONS EMPHASIZED FOR CHF,WITH MASON CATH IN PLACE DRAINING CLEAR YELLOW OUTPUT.ISOLATION PRECAUTION FOR COVID POSITIVE.CALL LIGHT IN REACH ,NEEDS ANTICIPATED.
[2021-04-25 20:00] VITALS: BP 127/65
[2021-04-25] MEDS: ATORVASTATIN 10 MG TABLET PO SCH (21:17)
[2021-04-25] MEDS: SERTRALINE HCL 25 MG TABLET PO SCH (21:17)
[2021-04-26] VITALS: BP 103/68
[2021-04-26 04:00] VITALS: BP 118/73
--- NOTE | 2021-04-26 06:24 | NUR ---
MYSQL DATABASE DEVELOPER NOTES FAIRLY RESTED AT NOC,NO EPISODE OF SOB NOTED,ALL DUE MEDS ADMINISTERED,CALL LIGHT IN REACH,NEEDS ATTENDED.
[2021-04-26 07:07] LABS: BASOPHILS % (AUTO) 0.2 % (0.0-2.0); HEMATOCRIT 34 % (39-51); HEMOGLOBIN 11.1 g/dL (13.5-17.5); LYMPHOCYTES % (AUTO) 17.1 % (20.0-44.0); MEAN CORPUSCULAR HGB CONC 33 g/dl (31.0-36.0); MEAN CORPUSCULAR VOLUME 94 fL (80-96); MONOCYTES # (AUTO) 1.1 K/uL (0.1-1.30); MONOCYTES % (AUTO) 19.4 % (2.0-12.0); NEUTROPHILS # (AUTO) 3.6 K/uL (1.8-8.9); NEUTROPHILS % (AUTO) 63.3 % (43.0-81.0); PLATELET COUNT (AUTO) 336 K/uL (150-450); RED BLOOD CELL COUNT(AUTO) 3.61 MIL/uL (4.5-6.0); WHITE BLOOD COUNT (AUTO) 5.6 K/uL (4.3-11.0)
[2021-04-26 07:57] LABS: ALBUMIN 2.8 g/dL (3.4-5.0); BILIRUBIN,TOTAL 0.3 mg/dL (0.2-1.0); CALCIUM, SERUM 8.5 mg/dL (8.5-10.1); MAGNESIUM 2.2 mg/dL (1.8-2.4); PHOSPHORUS 3.1 mg/dL (2.5-4.9); POTASSIUM 3.3 mmol/L (3.5-5.1); TOTAL PROTEIN, SERUM 8.2 g/dL (6.4-8.2)
[2021-04-26 08:00] VITALS: BP 117/55
--- NOTE | 2021-04-26 09:00 | NUR ---
RN NOTE RECEIVED CALL FROM LAB REGARDING CRITICAL VALUE [id number]. MD CHANDLER MADE AWARE, NO NEW ORDERS MADE.
[2021-04-26] MEDS: METOLAZONE 2.5 MG TABLET PO SCH (09:42)
[2021-04-26] MEDS: DEXAMETHASONE SOD PHOSPHATE 10 MG/ML VIAL IV SCH (09:42)
[2021-04-26] MEDS: SPIRONOLACTONE 25 MG TABLET PO SCH (09:42)
[2021-04-26] MEDS: POTASSIUM CHLORIDE 20 MEQ TAB.PRT.SR PO SCH ×6 (09:42→16:07)
[2021-04-26] MEDS: GABAPENTIN 100 MG CAPSULE PO SCH ×3 (09:42→16:07)
[2021-04-26] MEDS: DIGOXIN 0.125 MG TABLET PO SCH (09:43)
[2021-04-26] MEDS: METOPROLOL TARTRATE 50 MG TABLET PO SCH ×2 (09:43→20:36)
[2021-04-26] MEDS: BENAZEPRIL HCL 20 MG TABLET PO SCH (09:44)
[2021-04-26] MEDS: FERROUS SULFATE (325 MG) 325 MG/TAB TABLET PO SCH (09:44)
[2021-04-26] MEDS: APIXABAN 5 MG TABLET PO SCH ×2 (09:46→16:08)
[2021-04-26] MEDS: PANTOPRAZOLE 40 MG TABLET.DR PO SCH (09:50)
[2021-04-26 12:00] VITALS: BP 125/68
[2021-04-26 16:00] VITALS: BP 126/67
[2021-04-26 17:28] LABS: BAND % (MANUAL) 1 % (0.0-5.0); LYMPHOCYTES % (MANUAL) 19 % (16-48); MONOCYTES % (MANUAL) 14 % (0-11.0); NEUTROPHILS % (MANUAL) 66 (42-76)
--- NOTE | 2021-04-26 19:25 | NUR ---
RN CLOSING NOTE: PATIENT RECEIVED AWAKE IN BED IN NO SIGNS OF RESPIRATORY DISTRESS, PATIENT STILL ON 5L OF 02 VIA NC ;TOLERATING WELL WITH O2 SAT >95%. DUE MEDS GIVEN. SAFETY MEASURES IMPLEMENTED, BED IN LOWEST POSITION, LOCKED, SIDE RAILS UP, CALL LIGHT WITHIN REACH. ALL NEEDS AND ORDERS ADDRESSED DURING THE SHIFT. IV ACCESS MAINTAINED INTACT, SECURED AND FLUSHING WELL. PATIENT KEPT CLEAN AND COMFORTABLE WITHIN THE SHIFT. PATIENT ENDORSED TO INCOMING SHIFT RN WITH STABLE VITAL SIGNS.
[2021-04-26 20:00] VITALS: BP 126/82
[2021-04-26] MEDS: SERTRALINE HCL 25 MG TABLET PO SCH (21:02)
[2021-04-26] MEDS: ATORVASTATIN 10 MG TABLET PO SCH (21:02)
[2021-04-27] VITALS: BP 142/84
[2021-04-27 04:00] VITALS: BP 147/85
[2021-04-27 06:27] LABS: BASOPHILS % (AUTO) 0.4 % (0.0-2.0); EOSINOPHILS % (AUTO) 0.1 % (0.0-6.0); HEMATOCRIT 36 % (39-51); HEMOGLOBIN 11.8 g/dL (13.5-17.5); LYMPHOCYTES # (AUTO) 1.1 K/uL (0.8-4.8); LYMPHOCYTES % (AUTO) 15.9 % (20.0-44.0); MEAN CORPUSCULAR HGB CONC 33 g/dl (31.0-36.0); MEAN CORPUSCULAR VOLUME 94 fL (80-96); MONOCYTES # (AUTO) 1.1 K/uL (0.1-1.30); MONOCYTES % (AUTO) 15.5 % (2.0-12.0); NEUTROPHILS # (AUTO) 4.9 K/uL (1.8-8.9); NEUTROPHILS % (AUTO) 68.1 % (43.0-81.0); PLATELET COUNT (AUTO) 344 K/uL (150-450); RED BLOOD CELL COUNT(AUTO) 3.81 MIL/uL (4.5-6.0); WHITE BLOOD COUNT (AUTO) 7.2 K/uL (4.3-11.0)
--- NOTE | 2021-04-27 07:20 | NUR ---
RN CLOSING NOTE: PATIENT IN BED IN NO SOB/ SIGNS OF RESPIRATORY DISTRESS, ON 5L OF 02 VIA NC TOLERATING WELL WITH O2 SAT >95%. NO EPISODES OF DESATURATION, SHE REFUSED LINEN CHANGE LAST NIGHT, BED IN LOWEST POSITION, LOCKED, SIDE RAILS UP, CALL LIGHT WITHIN REACH. WILL ENDORSE CONTINUITY OF CARE TO ONCOMING NURSE.
--- NOTE | 2021-04-27 07:35 | NUR ---
RN OPENING NOTE RECEIVE REPORT FROM OUT GOING NURSE. PATIENT IN STABLE CONDITION AT TIME OF REPORT. RECEIVING O2 VIA NC @ 5L/MIN. O2 SAT @ 97%. POTASSIUM IS LOW. a/O X4. POTASSIUM IS 3.3. WILL FOLLOW UP WITH AM LABS. PROPER ISOLATION PRECAUTION IN PLACE. ALL SAFETY MEASURE IN PLACE. BED ON LOWEST POSITION WITH HOB ELEVATED WITH 3 SIDE RAIL UP. CALL LIGHT WITHIN REACH. WILL CONTINUE TO MONITOR.
[2021-04-27 07:40] LABS: CALCIUM, SERUM 8.9 mg/dL (8.5-10.1); MAGNESIUM 2.3 mg/dL (1.8-2.4); PHOSPHORUS 4.8 mg/dL (2.5-4.9); POTASSIUM 3.4 mmol/L (3.5-5.1)
[2021-04-27 08:00] VITALS: BP 135/78
[2021-04-27] MEDS: POTASSIUM CHLORIDE 20 MEQ TAB.PRT.SR PO SCH ×3 (08:07→16:05)
[2021-04-27] MEDS: FERROUS SULFATE (325 MG) 325 MG/TAB TABLET PO SCH (08:07)
[2021-04-27] MEDS: GABAPENTIN 100 MG CAPSULE PO SCH ×3 (08:08→16:05)
[2021-04-27] MEDS: PANTOPRAZOLE 40 MG TABLET.DR PO SCH (08:08)
[2021-04-27] MEDS: BENAZEPRIL HCL 20 MG TABLET PO SCH (08:09)
[2021-04-27] MEDS: METOPROLOL TARTRATE 50 MG TABLET PO SCH ×2 (08:10→20:47)
[2021-04-27] MEDS: DIGOXIN 0.125 MG TABLET PO SCH (08:11)
[2021-04-27] MEDS: APIXABAN 5 MG TABLET PO SCH ×2 (08:12→16:06)
[2021-04-27] MEDS: DEXAMETHASONE SOD PHOSPHATE 10 MG/ML VIAL IV SCH (08:12)
[2021-04-27] MEDS: SPIRONOLACTONE 25 MG TABLET PO SCH (08:15)
[2021-04-27 09:23] LABS: ABG BASE EXCESS 12.4 mmol/L; ABG OXYGEN SATURATION 95.8 % (92.0-98.5); ABG PCO2 57.8 mmHg (35.0-45.0); ABG PH 7.445 (7.350-7.450); ABG PO2 88.3 mmHg (75.0-100.0); AaDO2 101.3 mmHg; COHb 0.5 % (0.5-1.5); O2Hb 95.3 % (94.0-97.0); SITE, ABG Right Radial; VENT MODE, BG nasal cannula
--- NOTE | 2021-04-27 09:36 | NUR ---
oxygen flowrate decreased from 4 lpm to 2 lpm Oxygen flow per dr. Washburn. Addendum: 04/27/21 at 0937 by BONNIE VELEZ RT Amended: Links added.
--- NOTE | 2021-04-27 09:52 | NUR ---
RN NOTE OXYGEN DELIVERY VIA NC WAS TITRATE FROM 5L/MIN TO 2L/MIN BY RT.
--- NOTE | 2021-04-27 11:16 | NUR ---
WOUND CARE CONSULT: RECEIVED WOUND CONSULT THAT READ BARIATRIC BED. PER SAND TECHNICIAN, PT IS ABLE TO REPOSITION IN BED AND DOES NOT REQUIRE BARIATRIC BED. WILL SEE PRN.
[2021-04-27 12:00] VITALS: BP 108/67
[2021-04-27] MEDS: MAGNESIUM CITRATE 296 ML BOTTLE PO PRN (15:45)
[2021-04-27 16:00] VITALS: BP 153/64
--- NOTE | 2021-04-27 18:44 | NUR ---
RN CLOSING NOTE PATIENT REMAIN IN STABLE CONDITION WITH NO SIGN OF DISTRESS THROUGH OUT SHIFT. TITRATE O2 VIA NC FROM 5L/MIN TO 2L/MIN AND TOLERATE WELL. CARDIAC RHYTHM SHOWS A-FIBS. A/O X4. PATIENT REFUSED TO BE CHANGED. TOOK ALL MEDICATIONS. PATIENT COMPLAIN OF CONSTIPATION AND HAD NOT HAD BOWEL MOVEMENT FOR SEVERAL DAYS. MAGNESIUM CITRATE WAS ORDERED AND GIVEN AROUND 4PM PER DR. CHANDLER. STILL NO BOWEL MOVEMENT AT THIS TIME. MYKE ISOLATION PRECAUTION IN PLACE. ALL SAFETY MEASURE IN PLACE. BED ON THE LOWEST POSITION WITH HOB ELEVATED AND 3 SIDE RAIL UP. CALL LIGHT WITHIN REACH. WILL CONTINUE TO MONITOR AND GIVE REPORT TO ON COMING NURSE.
[2021-04-27 20:00] VITALS: BP 155/88
[2021-04-27 20:39] LABS: BAND % (MANUAL) 3 % (0.0-5.0); LYMPHOCYTES % (MANUAL) 13 % (16-48); MONOCYTES % (MANUAL) 10 % (0-11.0); NEUTROPHILS % (MANUAL) 74 (42-76)
--- NOTE | 2021-04-27 22:00 | NUR ---
RN NOTES, ATTEMPT TO PROVIDE CARE TO PATIENT, AND CHANGE LINEN, PATIENT REFUSED, EXPLAINED SEVERAL TIMES RISKS AND BENEFITS, OF CHANGING AND REPOSITIONING, AND HE STILL REFUSED, ADVICE PATIENT THAT HE MAY DEVELOP A PRESSURE SORE, IF CONTINUE REFUSING CHANGE AND REPOSITION, AND HE STILL REFUSED. NO BOWEL MOVEMENT TILL NOW, PATIENT DRY, WITH CONDOM CATH IN PLACE, ALL SAFETY MEASURE IN PLACE. BED ON THE LOWEST POSITION WITH HOB ELEVATED AND 3 SIDE RAIL UP. CALL LIGHT WITHIN REACH, WILL CONTINUE TO MONITOR.
[2021-04-27] MEDS: ATORVASTATIN 10 MG TABLET PO SCH (22:04)
[2021-04-27] MEDS: SERTRALINE HCL 25 MG TABLET PO SCH (22:04)
[2021-04-28] VITALS: BP 155/88
[2021-04-28 04:00] VITALS: BP 110/89
--- NOTE | 2021-04-28 04:30 | NUR ---
RN NOTES, AGAIN ASKED PATIENT THAT WE NEED TO PROVIDE CARE, AND CHANGE LINEN, PATIENT REFUSED, EXPLAINED SEVERAL TIMES RISKS AND BENEFITS AGAIN, OF CHANGING AND REPOSITIONING, AND HE STILL REFUSED, ADVICE PATIENT THAT HE MAY DEVELOP A PRESSURE SORE, IF CONTINUE REFUSING CHANGE AND REPOSITION, AND HE STILL REFUSED, BEHAVIOUR SUPPORT TEACHER ATTEMPT ALSO MULTIPLE TIMES TO ENCOURAGE HIM, STILL REFUSED, NO BOWEL MOVEMENT TILL NOW, ALL SAFETY MEASURE IN PLACE. BED ON THE LOWEST POSITION WITH HOB ELEVATED AND 3 SIDE RAIL UP. CALL LIGHT WITHIN REACH, WILL CONTINUE TO MONITOR.
[2021-04-28 06:08] LABS: BASOPHILS % (AUTO) 0.1 % (0.0-2.0); HEMATOCRIT 36 % (39-51); HEMOGLOBIN 11.9 g/dL (13.5-17.5); LYMPHOCYTES # (AUTO) 1.2 K/uL (0.8-4.8); LYMPHOCYTES % (AUTO) 14.7 % (20.0-44.0); MEAN CORPUSCULAR HGB CONC 33 g/dl (31.0-36.0); MEAN CORPUSCULAR VOLUME 94 fL (80-96); MONOCYTES # (AUTO) 1.2 K/uL (0.1-1.30); MONOCYTES % (AUTO) 14.8 % (2.0-12.0); NEUTROPHILS # (AUTO) 5.8 K/uL (1.8-8.9); NEUTROPHILS % (AUTO) 70.4 % (43.0-81.0); PLATELET COUNT (AUTO) 370 K/uL (150-450); RED BLOOD CELL COUNT(AUTO) 3.83 MIL/uL (4.5-6.0); WHITE BLOOD COUNT (AUTO) 8.3 K/uL (4.3-11.0)
[2021-04-28 07:00] LABS: CALCIUM, SERUM 9.1 mg/dL (8.5-10.1); MAGNESIUM 2.5 mg/dL (1.8-2.4); PHOSPHORUS 3.6 mg/dL (2.5-4.9)
--- NOTE | 2021-04-28 07:23 | NUR ---
RN OPENING NOTE RECEIVE REPORT FROM MUSHROOM GROWING SUPERVISOR NURSE. PATIENT IN STABLE CONDITION AT TIME OF REPORT. PATIENT REFUSED TO BE TURN AND CHANGE. WILL FOLLOW UP AM LABS AND DOCTORS ORDERS. MYKE ISOLATION PRECAUTION IN PLACE. ALL SAFETY MEASURE IN PLACE. BED ON THE LOWEST POSITION WITH HOB ELEVATED AND 3 SIDE RAIL UP. CALL LIGHT WITHIN REACH. WILL CONTINUE TO MONITOR AND GIVE REPORT TO ON COMING NURSE.
[2021-04-28] MEDS: PANTOPRAZOLE 40 MG TABLET.DR PO SCH (07:44)
[2021-04-28 08:00] VITALS: BP 131/64
[2021-04-28] MEDS: FERROUS SULFATE (325 MG) 325 MG/TAB TABLET PO SCH (08:07)
[2021-04-28] MEDS: GABAPENTIN 100 MG CAPSULE PO SCH ×3 (08:07→16:02)
[2021-04-28] MEDS: SPIRONOLACTONE 25 MG TABLET PO SCH (08:07)
[2021-04-28] MEDS: POTASSIUM CHLORIDE 20 MEQ TAB.PRT.SR PO SCH ×3 (08:07→16:02)
[2021-04-28] MEDS: BENAZEPRIL HCL 20 MG TABLET PO SCH (08:08)
[2021-04-28] MEDS: DIGOXIN 0.125 MG TABLET PO SCH (08:08)
[2021-04-28] MEDS: METOPROLOL TARTRATE 50 MG TABLET PO SCH ×2 (08:09→21:08)
[2021-04-28] MEDS: DEXAMETHASONE SOD PHOSPHATE 10 MG/ML VIAL IV SCH (08:09)
[2021-04-28] MEDS: APIXABAN 5 MG TABLET PO SCH ×2 (08:11→16:02)
--- NOTE | 2021-04-28 08:21 | NUR ---
RN NOTE PATIENT REFUSED TO EAT BREAKFAST
[2021-04-28 12:00] VITALS: BP 126/73
[2021-04-28 16:00] VITALS: BP 140/48
--- NOTE | 2021-04-28 18:18 | NUR ---
RN CLOSING NOTE PATIENT REMAIN IN STABLE CONDITION THROUGH OUT SHIFT WITH NO SIGN OF DISTRESS. REMAIN ON OXYGEN VIA NC AT 2L. O2 SAT 95% AND ABOVE. TOOK ALL MEDICATION. REFUSED BREAKFAST, LUNCH, AND DINNER. CONSUME GOOD AMOUNT OF FLUID. PATIENT REFUSED TO BE TURN AND CHANGE. MYKE ISOLATION PRECAUTION IN PLACE. ALL SAFETY MEASURE IN PLACE. BED ON THE LOWEST POSITION WITH HOB ELEVATED AND 3 SIDE RAIL UP. CALL LIGHT WITHIN REACH. WILL CONTINUE TO MONITOR AND GIVE REPORT TO ON COMING NURSE.
[2021-04-28 20:00] VITALS: BP 141/60
[2021-04-28] MEDS: MAGNESIUM CITRATE 296 ML BOTTLE PO PRN (20:43)
[2021-04-28] MEDS: SERTRALINE HCL 25 MG TABLET PO SCH (21:08)
[2021-04-28] MEDS: ATORVASTATIN 10 MG TABLET PO SCH (21:08)
--- NOTE | 2021-04-28 23:00 | NUR ---
PATIENT RECEIVED IN BED ALERT AND VERBALLY RESPONSIVE. O2 INHALATION AT 2L/MIN VIA N/C, O2 SAT 92%. NO C/O SOB. BREATHING EVEN AND UNLABORED. STILL REFUSING TO TURN AND REPOSITION. STILL C/O CONSTIPATION, MG CITRATE GIVEN PER ORDER BUT STILL NO BOWEL MOVEMENT. ALL DUE MEDICATIONS GIVEN AND PATIENT TOLERATED WELL. CONDOM CATHETER INTACT AND ON PLACE. NO OTHER CHANGE OF CONDITIONS. BED IN LOW POSITION AND LOCKED. ALL SAFETY PROTOCOLS FOLLOWED. WILL CONTINUE TO MONITOR
[2021-04-29] VITALS: BP 96/48
[2021-04-29 04:00] VITALS: BP 119/76
--- NOTE | 2021-04-29 06:23 | NUR ---
RN CLOSING NOTES: PATIENT AWAKE, ALERT AND VERBALLY RESPONSIVE. O2 SAT 92% AT 2L/MIN VIA N/C. STILL NO BOWEL MOVEMENT. STRONGLY REFUSED TO CHANGES, REPOSITION AND TURNING. OFFERED SEVERAL TIMES, STILL REFUSED. STATED, IF HE DOESN'T WANT TO CHANGE DIAPER, REPOSITION OR TURN, NO ONE CAN CHANGE HIM. CONDOM CATHETER STILL ON PLACE. OUTPUT 900CC. STAYED IN BED ALL NIGHT. DIDN'T TRY TO GET UP. NO SIGNIFICANT CHANGES NOTED. BED IN LOW POSITION AND LOCKED. PLACE CALL LIGHT WITH IN REACH. WILL ENDORSE TO MORNING SHIFT
--- NOTE | 2021-04-29 07:30 | NUR ---
ASSEMBLY MANAGER OPENING NOTES RECEIVED PT AWAKE ALERT IN BED ON 2L NC WITH NO RESPIRATORY DISTRESS NOTED AT THIS TIME. PT HAS A AMBER MIL 18G SL FLUSHED, PATENT, AND INTACT. PT HAS NO COMPLAINTS OF PAIN AT THIS TIME. SAFETY MEASURES IN PLACE WITH BED IN LOWEST LOCKED POSITION, CALL LIGHT WITHIN REACH AND SIDE RAILS UP X2.
[2021-04-29] MEDS: PANTOPRAZOLE 40 MG TABLET.DR PO SCH (07:55)
[2021-04-29 08:00] VITALS: BP 127/65
[2021-04-29] MEDS: FERROUS SULFATE (325 MG) 325 MG/TAB TABLET PO SCH (10:18)
[2021-04-29] MEDS: DIGOXIN 0.125 MG TABLET PO SCH (10:18)
[2021-04-29] MEDS: GABAPENTIN 100 MG CAPSULE PO SCH ×2 (10:18→13:23)
[2021-04-29] MEDS: POTASSIUM CHLORIDE 20 MEQ TAB.PRT.SR PO SCH ×2 (10:19→13:23)
[2021-04-29] MEDS: METOPROLOL TARTRATE 50 MG TABLET PO SCH (10:19)
[2021-04-29] MEDS: SPIRONOLACTONE 25 MG TABLET PO SCH (10:20)
[2021-04-29] MEDS: BENAZEPRIL HCL 20 MG TABLET PO SCH (10:20)
[2021-04-29] MEDS: APIXABAN 5 MG TABLET PO SCH (10:22)
[2021-04-29] MEDS: DEXAMETHASONE SOD PHOSPHATE 10 MG/ML VIAL IV SCH (10:23)
[2021-04-29 12:00] VITALS: BP 116/64
--- NOTE | 2021-04-29 15:00 | NUR ---
RESIDENTIAL BUILDING INSPECTOR NOTES PT STABLE FOR DISCHARGE, REPORT GIVEN TO [facility]. PT L AC AND AMBER MIDLINE REMOVED, DRESSING IN PLACE WITH NO SIGNS OF BLEEDING. REPORT GIVEN TO AMBULANCE FOR CONTINUITY OF CARE. WOOD BOX MAKER REMOVED, BELONGINGS DOCUMENTED AND DISCHARGE INSTRUCTIONS GIVEN
== END 2021-04-29 15:54 | DRG 137 ==
LOC: ER 04:41 → UNDOADMIN 07:41 → TELE 07:41 → TELE1 09:49
PROVIDERS: ADMIT Internal Medicine; ATTEND Nurse Practitioner Acute Care
PROC: 05HA33Z Insertion of Infusion Device into Left Brachial Vein, Percutaneous Approach (ICD-10-PCS; principal; 2021-04-23)
DX: U07.1 COVID-19 (principal); J96.21 Acute and chronic respiratory failure with hypoxia; J12.82 Pneumonia due to coronavirus disease 2019; I27.20 Pulmonary hypertension, unspecified; I50.33 Acute on chronic diastolic (congestive) heart failure; D68.59 Other primary thrombophilia; E66.2 Morbid (severe) obesity with alveolar hypoventilation; E87.3 Alkalosis; I69.354 Hemiplegia and hemiparesis following cerebral infarction affecting left non-dominant side; J96.22 Acute and chronic respiratory failure with hypercapnia; I11.0 Hypertensive heart disease with heart failure; I48.19 Other persistent atrial fibrillation; D64.9 Anemia, unspecified; Z79.899 Other long term (current) drug therapy; Z98.84 Bariatric surgery status; M10.9 Gout, unspecified; Z98.890 Other specified postprocedural states; Z79.01 Long term (current) use of anticoagulants; E78.5 Hyperlipidemia, unspecified; Z68.41 Body mass index [BMI] 40.0-44.9, adult; Z99.3 Dependence on wheelchair; Z74.09 Other reduced mobility; R79.89 Other specified abnormal findings of blood chemistry; E87.6 Hypokalemia; J98.11 Atelectasis; I42.9 Cardiomyopathy, unspecified
CPT/HCPCS: 36410; 36415; 36600; 71045-TC; 80048-TC; 80053-TC; 80076-TC; 80162-TC; 82550-TC; 82803-TC; 83605-TC; 83615-TC; 83735-TC; 83880; 84100-TC; 84443-TC; 84484-TC; 85025-TC; 85378-TC; 85730-TC; 86140-TC; 87040-TC; 87081-TC; A4349; C9803; G0378; J0692; J1100; J1940; J3490; J7030; J7060; U0003

== ENCOUNTER 2021-06-17 09:02 | Inpatient (IN) | payer OTHER ==
[~2021-06-17] VITALS: Ht 185.4 cm; Wt 159.2 kg
[~2021-06-17 09:02] MED LIST changes: -FURO-144 PO
--- NOTE | 2021-06-17 09:09 | NUR ---
To ER bed 8, [id number] frm [id number] for noted sob. nitro x 2 given clinical nutrition manager. denies any chest pain. Aaox, patient stated he was just hospitalized for 10days for the same reason but doesn't remember the name, hx of copd, connected to monitor, awaiting md jimenez
--- NOTE | 2021-06-17 09:43 | NUR ---
MOVE SHEET SUBMITTED AND CALLED FOR TELE BED.
[2021-06-17 10:06] LABS: BASOPHILS % (AUTO) 0.6 % (0.0-2.0); EOSINOPHILS % (AUTO) 1.5 % (0.0-6.0); HEMATOCRIT 34 % (39-51); HEMOGLOBIN 10.7 g/dL (13.5-17.5); LYMPHOCYTES # (AUTO) 0.8 K/uL (0.8-4.8); MEAN CORPUSCULAR HGB CONC 32 g/dl (31.0-36.0); MEAN CORPUSCULAR VOLUME 96 fL (80-96); MONOCYTES # (AUTO) 0.9 K/uL (0.1-1.30); MONOCYTES % (AUTO) 10.9 % (2.0-12.0); NEUTROPHILS # (AUTO) 6.5 K/uL (1.8-8.9); PLATELET COUNT (AUTO) 236 K/uL (150-450); WHITE BLOOD COUNT (AUTO) 8.3 K/uL (4.3-11.0)
--- NOTE | 2021-06-17 10:14 | NUR ---
COVID ANTIGEN AND PCR SWABS DONE AND SENT TO LAB
[2021-06-17] MEDS ORDERED: ACET-868 PO (10:27)
[2021-06-17] MEDS ORDERED: BISA10SU11 RC (10:27)
[2021-06-17] MEDS ORDERED: NA P133E RC (10:27)
[2021-06-17] MEDS ORDERED: MAGN400O6 PO (10:27)
[2021-06-17] MEDS ORDERED: ARGI1POW13 PO (10:27)
[2021-06-17] MEDS ORDERED: METO25TA6 PO (10:27)
[2021-06-17] MEDS ORDERED: ASCO-352 PO (10:27)
[2021-06-17 10:55] LABS: CALCIUM, SERUM 8.8 mg/dL (8.5-10.1); CREATININE 0.8 mg/dL (0.6-1.3); POTASSIUM 4.9 mmol/L (3.5-5.1)
[2021-06-17 11:07] LABS: ALBUMIN 2.8 g/dL (3.4-5.0); BILIRUBIN,DIRECT 0.3 mg/dL (0.0-0.2); TOTAL PROTEIN, SERUM 7.9 g/dL (6.4-8.2)
[2021-06-17] MEDS ORDERED: FUROSEMIDE 40 MG/4 ML VIAL IV ONE (12:00)
[2021-06-17] MEDS ORDERED: FUROSEMIDE 20 MG/2 ML VIAL ONE (12:09)
[2021-06-17] MEDS ORDERED: FUROSEMIDE 40 MG/4 ML VIAL ONE (12:09)
--- NOTE | 2021-06-17 13:36 | NUR ---
[facility] CALLED CONTRACTING SPECIALIST PAGED.
[2021-06-17] MEDS ORDERED: ENOXAPARIN SODIUM 40 MG/0.4 ML DISP.SYRIN SQ SCH (15:30)
[2021-06-17] MEDS ORDERED: MAGNESIUM HYDROXIDE 30 ML UDC PO PRN (15:30)
[2021-06-17] MEDS ORDERED: NITROGLYCERIN 0.4 MG/TAB BOTTLE SL PRN (15:30)
[2021-06-17] MEDS ORDERED: BISACODYL SUPP (10 MG) 10 MG/SUPP.RECT SUPP.RECT RC PRN (15:30)
[2021-06-17] MEDS ORDERED: NA PHOS,M-B/NA PHOS,DI-BA 1 EA ENEMA RC PRN (15:30)
--- NOTE | 2021-06-17 16:29 | NUR ---
SEEN BY DR GREER
[2021-06-17] MEDS ORDERED: APIXABAN 5 MG TABLET ONE (16:32)
[2021-06-17] MEDS ORDERED: GABAPENTIN 100 MG CAPSULE ONE (16:32)
[2021-06-17] MEDS ORDERED: METOPROLOL TARTRATE 50 MG TABLET ONE (16:33)
[2021-06-17] MEDS ORDERED: POTASSIUM CHLORIDE 20 MEQ TAB.PRT.SR PO ONE (16:33)
[2021-06-17] MEDS: APIXABAN 5 MG TABLET PO SCH (16:38)
[2021-06-17] MEDS: METOPROLOL TARTRATE 25 MG TABLET PO SCH (16:40)
[2021-06-17] MEDS: GABAPENTIN 100 MG CAPSULE PO SCH (16:40)
--- NOTE | 2021-06-17 16:43 | NUR ---
LASIX 40MG HOLD DOSE AT [address] GREER
[2021-06-17] MEDS ORDERED: POTASSIUM CHLORIDE 20 MEQ TAB.PRT.SR PO SCH (17:00)
[2021-06-17] MEDS ORDERED: FUROSEMIDE 40 MG/4 ML VIAL IV SCH (17:00)
[2021-06-17] MEDS ORDERED: methylPREDNISolone SOD SUCC 40 MG/ML VIAL IV ONE (18:30)
[2021-06-17] MEDS ORDERED: hydrALAZINE HCL IV 20 MG VIAL IV PRN (18:30)
[2021-06-17] MEDS ORDERED: IPRATROPIUM BROMIDE 14 GM INHALER (or 12.9 GM) IH PRN (18:30)
[2021-06-17] MEDS ORDERED: ALBUTEROL SULFATE 8 GM HFA.AER.AD IH PRN (18:30)
[2021-06-17] MEDS ORDERED: methylPREDNISolone SOD SUCC 40 MG/ML VIAL ONE (19:12)
--- NOTE | 2021-06-17 20:40 | NUR ---
RN NOTES RECEIVED REPORT FROM ER NURSE OPAL
--- NOTE | 2021-06-17 20:40 | NUR ---
REPORT GIVEN TO LI AMATO
[2021-06-17 20:45] VITALS: BP 111/80
--- NOTE | 2021-06-17 20:45 | NUR ---
EXHIBIT CLEANER NOTES ADMITTED A 60Y/O MALE PATIENT FROM ER VIA [facility] WITH CHIEF COMPLAIN OF SHORTNESS OF BREATH, RAPID TEST NEGATIVE, PCR PENDING. PATIENT A/O X4 ABLE TO MAKE NEEDS KNOWN. WITH IV ACCESS AT RIGHT HAND# 20 PATENT FLUSHES WELL. VITAL SIGNS TAKEN AND RECORDED AFEBRILE. TRANSFER TO BED SAFELY. ON NASAL CANULA @ 4LPM TOLERATING WELL SATING 96%. COMPLETE BODY ASSESSMENT DONE, SEE CHART FOR PICTURE. ALL BELONGINGS CHECKED AND RECORDED. ALL SAFETY MEASURES IN PLACE AT ALL TIMES. BED IN LOWEST POSITION, LOCKED. BED ALARM ARMED. CALL LIGHT WITH IN REACH. CONTINUE TO MONITOR.
--- NOTE | 2021-06-17 20:54 | NUR ---
PATIENT TRANSFERRED UNDER ACLS
[2021-06-17] MEDS: SERTRALINE HCL 25 MG TABLET PO SCH (22:25)
[2021-06-18] VITALS: BP 139/86
[2021-06-18 04:00] VITALS: BP 139/86
--- NOTE | 2021-06-18 06:57 | NUR ---
RN CLOSING NOTES NO SIGNIFICANT CHANGES THROUGH OUT THE SHIFT, NO SOB NOTED, NOT IN DISTRESS. PATIENT A/O X4 ABLE TO MAKE NEEDS KNOWN. WITH IV ACCESS AT RIGHT HAND# 20 PATENT FLUSHES WELL. ON NASAL CANULA @ 4LPM TOLERATING WELL SATING 96%. ALL DUE MEDS GIVEN ORDERED. ALL SAFETY MEASURES IN PLACE AT ALL TIMES. BED IN LOWEST POSITION, LOCKED. BED ALARM ARMED. CALL LIGHT WITH IN REACH. CONTINUE TO MONITOR.
[2021-06-18 07:16] LABS: BASOPHILS % (AUTO) 0.2 % (0.0-2.0); HEMATOCRIT 36 % (39-51); HEMOGLOBIN 11.9 g/dL (13.5-17.5); LYMPHOCYTES # (AUTO) 0.6 K/uL (0.8-4.8); LYMPHOCYTES % (AUTO) 6.7 % (20.0-44.0); MEAN CORPUSCULAR HGB CONC 33 g/dl (31.0-36.0); MEAN CORPUSCULAR VOLUME 95 fL (80-96); MONOCYTES # (AUTO) 0.3 K/uL (0.1-1.30); MONOCYTES % (AUTO) 2.7 % (2.0-12.0); NEUTROPHILS # (AUTO) 8.5 K/uL (1.8-8.9); NEUTROPHILS % (AUTO) 90.4 % (43.0-81.0); PLATELET COUNT (AUTO) 237 K/uL (150-450); RED BLOOD CELL COUNT(AUTO) 3.83 MIL/uL (4.5-6.0); WHITE BLOOD COUNT (AUTO) 9.4 K/uL (4.3-11.0)
--- NOTE | 2021-06-18 07:41 | NUR ---
RN OPENING NOTE PATIENT AWAKE IN BED RESTING, A/O X4. NO S/S OF PAIN NOTED AT THIS TIME. ON 4L OXYGEN VIA NC, NO DISTRESS OR SHORTNESS OF BREATH NOTED. IV ACCESS R HAND #20G, INTACT, PATENT AND FLUSHING WELL. PATIENT HAVE A MASON CATHETER, IN PLACE AND DRAINING WELL. FALL AND SAFETY MEASURES IN PLACE, BED ALARM ON, BED IN LOW AND LOCK POSITION, CALL LIGHT AND TABLE WITHIN EASY REACH, SIDE RAILS UP X2. WILL CONTINUE TO MONITOR.
[2021-06-18 08:00] VITALS: BP 141/90
[2021-06-18 08:18] LABS: THYROID STIMULATING HORMONE 0.354 uIU/mL (0.358-3.74)
[2021-06-18 08:35] LABS: ALBUMIN 2.9 g/dL (3.4-5.0); BILIRUBIN,TOTAL 1.1 mg/dL (0.2-1.0); CALCIUM, SERUM 8.6 mg/dL (8.5-10.1); CREATININE 0.8 mg/dL (0.6-1.3); MAGNESIUM 1.8 mg/dL (1.8-2.4); PHOSPHORUS 3.6 mg/dL (2.5-4.9); POTASSIUM 4.3 mmol/L (3.5-5.1); TOTAL PROTEIN, SERUM 8.2 g/dL (6.4-8.2)
--- NOTE | 2021-06-18 09:39 | NUR ---
WOUND CARE CONSULT: REVIEWED CHART,NURSING DOCUMENTATION AND PHOTOS WHICH INDICATE BREASTFOLD REDNESS AND SCARRING TO SACRUM AND LEFT GLUTEAL FOLD, PRESENT ON ADMISSION. RECOMMENDATIONS MADE FOR SKIN PROTECTION. DISCUSSED WITH NURSING STAFF. PT IS ON [place] [facility] BED. MD IN AGREEMENT WITH PLAN OF CARE.
[2021-06-18] MEDS: GABAPENTIN 100 MG CAPSULE PO SCH ×3 (09:46→17:10)
[2021-06-18] MEDS: FERROUS SULFATE (325 MG) 325 MG/TAB TABLET PO SCH (09:46)
[2021-06-18] MEDS: ASCORBIC ACID 500 MG TABLET PO SCH (09:46)
[2021-06-18] MEDS: FUROSEMIDE 100 MG/10 ML VIAL IV SCH ×3 (09:46→17:11)
[2021-06-18] MEDS: METOPROLOL TARTRATE 25 MG TABLET PO SCH ×2 (09:47→17:13)
[2021-06-18] MEDS: BENAZEPRIL HCL 20 MG TABLET PO SCH (09:48)
[2021-06-18] MEDS: APIXABAN 5 MG TABLET PO SCH ×2 (09:50→17:16)
[2021-06-18] MEDS ORDERED: Z GUARD REMEDY 4 OZ OINT TP PRN (10:00)
[2021-06-18] MEDS: Z GUARD REMEDY 4 OZ OINT TP SCH (11:19)
[2021-06-18 12:00] VITALS: BP 138/103
[2021-06-18 12:22] LABS: THYROID STIMULATING HORMONE 0.36 uIU/mL (0.358-3.74)
[2021-06-18] MEDS: DIGOXIN 0.125 MG TABLET PO SCH (13:10)
[2021-06-18 16:00] VITALS: BP 114/68
[2021-06-18] MEDS: CLOTRIMAZOLE 1% 15 GM TUBE TP SCH (17:10)
--- NOTE | 2021-06-18 19:03 | NUR ---
RN CLOSING NOTE PATIENT AWAKE IN BED RESTING, A/O X4. NO S/S OF PAIN NOTED AT THIS TIME. ON 4L OXYGEN VIA NC, NO DISTRESS OR SHORTNESS OF BREATH NOTED. IV ACCESS R HAND #20G, INTACT, PATENT AND FLUSHING WELL. PATIENT HAVE A MASON CATHETER, IN PLACE AND DRAINING WELL, OUTPUT 2,900ML. ALL SCHEDULED MEDS GIVEN. FALL AND SAFETY MEASURES IN PLACE, BED ALARM ON, BED IN LOW AND LOCK POSITION, CALL LIGHT AND TABLE WITHIN EASY REACH, SIDE RAILS UP X2. WILL CONTINUE TO MONITOR. Addendum: 06/18/21 at 1907 by Romy Keating RN WILL ENDORSE TO STACKER DRIVER.
[2021-06-18 20:00] VITALS: BP 129/78
--- NOTE | 2021-06-18 20:19 | NUR ---
CONTINUITY OF CARE Patient in bed, awake A/O x4. On supplemental Oxygen 4L NC, oxygen sat in high 90's. Swelling BLE elevated on pillows. Jones cath in place draining yellow urine. No c/o pain at this time. Covid PCR test pending result. Will cont to provide care.
[2021-06-18] MEDS: SERTRALINE HCL 25 MG TABLET PO SCH (21:27)
[2021-06-19 01:10] VITALS: BP 104/78
[2021-06-19 05:53] VITALS: BP 127/79
--- NOTE | 2021-06-19 06:02 | NUR ---
END OF SHIFT REPORT Patient in bed, A/O x4. Bedbound. ON supplemental oxygen 4L NC, maintaining Oxygen sat 98%. Denies SOB. Patient refusing to be turned and repositioned during the night. Urinary ta cath in place with adequate urine output. No acute events overnight. Refused am care. Covid PCR test pending result. Will endorse to oncoming RN.
--- NOTE | 2021-06-19 07:30 | NUR ---
METAL FURNITURE REPAIRER NOTES PT IN BED, AWAKE, ALERT AND ORIENTED, NO COMPLAINT OF PAIN OR ANY DISCOMFORT, RESPIRATIONS NORMAL AND NON LABORED, CALL LIGHT WITHIN REACH, NEEDS ATTENDED.
[2021-06-19 07:32] LABS: BASOPHILS % (AUTO) 0.3 % (0.0-2.0); EOSINOPHILS % (AUTO) 0.8 % (0.0-6.0); HEMATOCRIT 35 % (39-51); HEMOGLOBIN 11.1 g/dL (13.5-17.5); LYMPHOCYTES # (AUTO) 1.4 K/uL (0.8-4.8); LYMPHOCYTES % (AUTO) 10.3 % (20.0-44.0); MEAN CORPUSCULAR HGB CONC 32 g/dl (31.0-36.0); MEAN CORPUSCULAR VOLUME 96 fL (80-96); MONOCYTES # (AUTO) 1.9 K/uL (0.1-1.30); MONOCYTES % (AUTO) 13.7 % (2.0-12.0); NEUTROPHILS # (AUTO) 10.2 K/uL (1.8-8.9); NEUTROPHILS % (AUTO) 74.9 % (43.0-81.0); PLATELET COUNT (AUTO) 228 K/uL (150-450); RED BLOOD CELL COUNT(AUTO) 3.65 MIL/uL (4.5-6.0); WHITE BLOOD COUNT (AUTO) 13.6 K/uL (4.3-11.0)
[2021-06-19 08:00] VITALS: BP 140/75
[2021-06-19 08:10] LABS: CALCIUM, SERUM 8.6 mg/dL (8.5-10.1); CREATININE 0.9 mg/dL (0.6-1.3); PHOSPHORUS 3.1 mg/dL (2.5-4.9); POTASSIUM 3.6 mmol/L (3.5-5.1)
[2021-06-19] MEDS: ASCORBIC ACID 500 MG TABLET PO SCH (08:44)
[2021-06-19] MEDS: FERROUS SULFATE (325 MG) 325 MG/TAB TABLET PO SCH (08:45)
[2021-06-19] MEDS: BENAZEPRIL HCL 20 MG TABLET PO SCH (08:45)
[2021-06-19] MEDS: GABAPENTIN 100 MG CAPSULE PO SCH ×3 (08:45→16:17)
[2021-06-19] MEDS: METOPROLOL TARTRATE 25 MG TABLET PO SCH ×2 (08:47→16:18)
[2021-06-19] MEDS: APIXABAN 5 MG TABLET PO SCH ×2 (08:47→16:18)
[2021-06-19] MEDS: CLOTRIMAZOLE 1% 15 GM TUBE TP SCH ×2 (08:51→17:05)
[2021-06-19] MEDS: Z GUARD REMEDY 4 OZ OINT TP SCH (09:46)
[2021-06-19] MEDS ORDERED: BUMETANIDE INJ 8 MG in IV NS 0.9% 48 ML IV ONE (10:00)
[2021-06-19] MEDS ORDERED: CEFTRIAXONE 1 G in IV D5W 50 ML IV SCH (10:00)
[2021-06-19 11:27] LABS: BILIRUBIN,URINE SMALL (NEGATIVE); COLOR,URINE DARK YELLOW (YELLOW); LEUKOCYTE ESTERASE ,URINE SMALL (NEGATIVE); NITRITE, URINE NEGATIVE (NEGATIVE); PH,URINE 7.5 (5.0-8.0); PROTEIN,URINE 100 mg/dl (NEGATIVE); UGLUCOSE NEGATIVE (NEGATIVE)
[2021-06-19 11:49] LABS: BACTERIA,URINE 3+ /HPF (None Seen); RBC,URINE 21-50 /HPF (0-2); SQUAMOUS EPITHELIAL CELL,UR Few /HPF (None Seen); TRIPLE PHOSPHATE CRYSTAL,UR Moderate /HPF (None Seen)
[2021-06-19 12:00] VITALS: BP 107/68
--- NOTE | 2021-06-19 12:00 | NUR ---
AIR TRAFFIC CONTROL SUPERVISOR NOTES PT IN BED, RESTING, NO COMPLAINT OF PAIN OR ANY DISCOMFORT AT THIS TIME, SEEN BY DR. GREER, PLAN OF CARE DISCUSSED WITH PT, VERBALIZED UNDERSTANDING, NOTED WITH SLIGHT TINGE OF BLOOD IN URINE, MD AWARE, CALL LIGHT PLACED WITHIN REACH.
[2021-06-19] MEDS: DIGOXIN 0.125 MG TABLET PO SCH (12:07)
[2021-06-19 16:00] VITALS: BP 108/58
--- NOTE | 2021-06-19 18:00 | NUR ---
ADMINISTRATIVE UNDERWRITER NOTES PT IN BED, RESTING, NO COMPLAINT OF PAIN, NOT IN DISTRESS, ON O2 AT 4LPM VIA N/C, SATTING ADEQUATELY, RESPIRATIONS NORMAL, CALL LIGHT WITHIN REACH, RECEIVED IV DIURETIC TODAY, I/O MEASURED, PM CARE PROVIDED, ALL NEEDS ATTENDED.
--- NOTE | 2021-06-19 19:40 | NUR ---
REPAIRER WOOD FURNITURE NOTE RECEIVED PATIENT RESTING IN BED, A/O X4 On supplemental Oxygen 4L VIA NC, oxygen sat 95%.Patient not complaining of any bed at this time. On tele monitor with HR of 91, AFIB controlled with PVCS. Jones catether noted, draining yellow urine. IV site noted on Right hand, 20g, flushing well and patent. Swelling BLE elevated on pillows.All isolation precautions taken, along with environmental measures. Bed locked, in low position, with call light in reach.
[2021-06-19 20:00] VITALS: BP 143/72
[2021-06-19] MEDS: SERTRALINE HCL 25 MG TABLET PO SCH (21:37)
[2021-06-20] VITALS: BP 127/89
[2021-06-20 06:00] VITALS: BP 127/82
--- NOTE | 2021-06-20 06:00 | NUR ---
RN CLOSING NOTES PATIENT REMAINED STABLE THROUGHOUT THE NIGHT, WITH NO CHANGES. RESTING IN BED A/O X4 ON O2 OXYGEN VIA NC SATURATING AT 95%. On tele monitor with HR of 98, AFIB controlled with PVCS. .All isolation precautions taken, along with environmental measures.Patient refused to be changed. Bed locked, in low position, with call light in reach. WILL ENDORSE PLAN OF CARE TO AM NURSE.
--- NOTE | 2021-06-20 08:00 | NUR ---
RECEIVED ASLEEP,NO ACUTE DISTRESS. VSS
[2021-06-20 08:04] VITALS: BP 128/78
[2021-06-20] MEDS: BENAZEPRIL HCL 20 MG TABLET PO SCH (08:11)
[2021-06-20] MEDS: GABAPENTIN 100 MG CAPSULE PO SCH ×3 (08:11→16:50)
[2021-06-20] MEDS: ASCORBIC ACID 500 MG TABLET PO SCH (08:11)
[2021-06-20] MEDS: FERROUS SULFATE (325 MG) 325 MG/TAB TABLET PO SCH (08:11)
[2021-06-20 08:12] LABS: BASOPHILS # (AUTO) 0.1 K/uL (0.0-0.2); BASOPHILS % (AUTO) 0.8 % (0.0-2.0); EOSINOPHILS % (AUTO) 3.3 % (0.0-6.0); HEMATOCRIT 33 % (39-51); HEMOGLOBIN 10.7 g/dL (13.5-17.5); LYMPHOCYTES # (AUTO) 1.4 K/uL (0.8-4.8); MEAN CORPUSCULAR HGB CONC 32 g/dl (31.0-36.0); MEAN CORPUSCULAR VOLUME 96 fL (80-96); MONOCYTES # (AUTO) 1.3 K/uL (0.1-1.30); MONOCYTES % (AUTO) 14.7 % (2.0-12.0); NEUTROPHILS # (AUTO) 5.6 K/uL (1.8-8.9); NEUTROPHILS % (AUTO) 65.2 % (43.0-81.0); PLATELET COUNT (AUTO) 218 K/uL (150-450); RED BLOOD CELL COUNT(AUTO) 3.47 MIL/uL (4.5-6.0); WHITE BLOOD COUNT (AUTO) 8.5 K/uL (4.3-11.0)
[2021-06-20] MEDS: APIXABAN 5 MG TABLET PO SCH ×2 (08:12→16:51)
[2021-06-20] MEDS: METOPROLOL TARTRATE 25 MG TABLET PO SCH ×2 (08:12→16:51)
[2021-06-20] MEDS: Z GUARD REMEDY 4 OZ OINT TP SCH (08:13)
[2021-06-20] MEDS: CLOTRIMAZOLE 1% 15 GM TUBE TP SCH ×2 (08:13→16:53)
[2021-06-20 08:33] LABS: ALBUMIN 2.6 g/dL (3.4-5.0); BILIRUBIN,TOTAL 0.5 mg/dL (0.2-1.0); CALCIUM, SERUM 7.8 mg/dL (8.5-10.1); CREATININE 0.8 mg/dL (0.6-1.3); MAGNESIUM 1.7 mg/dL (1.8-2.4); PHOSPHORUS 3.4 mg/dL (2.5-4.9)
[2021-06-20 08:49] LABS: POTASSIUM 2.7 mmol/L (3.5-5.1)
[2021-06-20] MEDS ORDERED: POTASSIUM CL. PREMIX PERIPHER. 50 ML IV SCH (09:30)
[2021-06-20] MEDS ORDERED: POTASSIUM CHLORIDE 20 MEQ TAB.PRT.SR PO ONE (09:30)
[2021-06-20] MEDS ORDERED: acetaZOLAMIDE SODIUM 500 MG/VIAL VIAL IV ONE (10:00)
[2021-06-20] MEDS: Magnesium 1GM/D5W 100ML PREMIX 100 ML IV SCH ×2 (10:08→10:43)
[2021-06-20] MEDS: POTASSIUM CHLORIDE 20 MEQ TAB.PRT.SR PO SCH ×5 (10:09→13:44)
--- NOTE | 2021-06-20 11:56 | NUR ---
ABG RELAYED TO DR. PALACIOS LOWERED OXYGEN TO 0NE LITER.SEEN AND EVALUATED BY CHRISTOPHER NAVARRO .
[2021-06-20 12:02] VITALS: BP 112/63
[2021-06-20] MEDS: DIGOXIN 0.125 MG TABLET PO SCH (12:06)
--- NOTE | 2021-06-20 12:30 | NUR ---
R HAND IV OUT ,UNABLE TO PLACE PERIPHERAL IV,MIDLINE NURSE PLACED G18 R FOREARM PER MD ORDER.
[2021-06-20 16:45] VITALS: BP 114/63
--- NOTE | 2021-06-20 16:47 | NUR ---
patient refused to be cleaned.
[2021-06-20] MEDS: CEPHALEXIN MONOHYDRATE 500 MG CAPSULE PO SCH (16:52)
--- NOTE | 2021-06-20 18:08 | NUR ---
patient awake ,no acute distress,refused to be clean and change beddings and gown.
--- NOTE | 2021-06-20 19:45 | NUR ---
GENERAL II FARMWORKER NOTES RECEIVED ON BED A/O X4,WATCHING TV PROGRAM,BREATHING REGULAR,NOT IN ANY FORM OF DISTRESS,O2 IN USED AT 1L/NC TO KEEP O2 SAT ABOVE 90%.WITH DAI MIDLINE FOR MEDS,LEFT HAND SALINE LOCK INTACT AND PATENT.DROPLET ISOLATION PRECAUTION AWAITING PCR RESULT.CALL LIGHT IN REACH,NEEDS ANTICIPATED.
[2021-06-20 20:00] VITALS: BP 123/66
[2021-06-20] MEDS: SERTRALINE HCL 25 MG TABLET PO SCH (21:43)
[2021-06-21] VITALS: BP 91/65
[2021-06-21 04:00] VITALS: BP 127/78
--- NOTE | 2021-06-21 06:28 | NUR ---
FILEMAKER DEVELOPER NOTES PER CRIME SCENE PHOTOGRAPHER,OFFERED MORNING CARE X2 BUT REFUSED,ALWAYS ASKING FOR FOOD.O2 IN USED AT 1L/NC O2 SAT 98%.IN NO ACUTE DISTRESS.CALL LIGHT IN REACH,NEEDS ATTENDED.
--- NOTE | 2021-06-21 07:15 | NUR ---
CLOUD ENGAGEMENT PARTNER NOTES FINALLY CONVINCED PATIENT TO BE CLEAN.SPONGE BATH ADMINISTERED,MEPILEX CHANGED TO SACRAL AREA.KEPT CLEAN AND COMFORTABLE. ENDORSED TO PAULETTE AMATO
--- NOTE | 2021-06-21 07:30 | NUR ---
RN NOTES RECEIVED ON BED A/O X4,WATCHING TV PROGRAM,BREATHING REGULAR,NOT IN ANY FORM OF DISTRESS,O2 IN USED AT 1L/NC TO KEEP O2 SAT ABOVE 90%.WITH DAI MIDLINE FOR MEDS,LEFT HAND SALINE LOCK INTACT AND PATENT.DROPLET ISOLATION PRECAUTION AWAITING PCR RESULT.CALL LIGHT IN REACH,WILL SHREYAS
[2021-06-21 07:33] LABS: BASOPHILS % (AUTO) 0.4 % (0.0-2.0); EOSINOPHILS % (AUTO) 3.4 % (0.0-6.0); HEMATOCRIT 34 % (39-51); HEMOGLOBIN 10.8 g/dL (13.5-17.5); LYMPHOCYTES # (AUTO) 1.3 K/uL (0.8-4.8); LYMPHOCYTES % (AUTO) 17.8 % (20.0-44.0); MEAN CORPUSCULAR HGB CONC 32 g/dl (31.0-36.0); MEAN CORPUSCULAR VOLUME 96 fL (80-96); MONOCYTES # (AUTO) 1.3 K/uL (0.1-1.30); MONOCYTES % (AUTO) 18.2 % (2.0-12.0); NEUTROPHILS # (AUTO) 4.4 K/uL (1.8-8.9); NEUTROPHILS % (AUTO) 60.2 % (43.0-81.0); PLATELET COUNT (AUTO) 222 K/uL (150-450); RED BLOOD CELL COUNT(AUTO) 3.54 MIL/uL (4.5-6.0); WHITE BLOOD COUNT (AUTO) 7.3 K/uL (4.3-11.0)
[2021-06-21 07:52] LABS: CALCIUM, SERUM 8.1 mg/dL (8.5-10.1); CREATININE 0.7 mg/dL (0.6-1.3); MAGNESIUM 2.3 mg/dL (1.8-2.4); POTASSIUM 3.1 mmol/L (3.5-5.1)
[2021-06-21 08:00] VITALS: BP 133/89
[2021-06-21] MEDS: CEPHALEXIN MONOHYDRATE 500 MG CAPSULE PO SCH ×2 (09:03→16:23)
[2021-06-21] MEDS: METOPROLOL TARTRATE 25 MG TABLET PO SCH ×2 (09:03→16:23)
[2021-06-21] MEDS: GABAPENTIN 100 MG CAPSULE PO SCH ×3 (09:03→16:23)
[2021-06-21] MEDS: FERROUS SULFATE (325 MG) 325 MG/TAB TABLET PO SCH (09:04)
[2021-06-21] MEDS: BENAZEPRIL HCL 20 MG TABLET PO SCH (09:04)
[2021-06-21] MEDS: ASCORBIC ACID 500 MG TABLET PO SCH (09:04)
[2021-06-21] MEDS: APIXABAN 5 MG TABLET PO SCH ×2 (09:05→16:24)
[2021-06-21] MEDS: CLOTRIMAZOLE 1% 15 GM TUBE TP SCH ×2 (09:06→16:25)
[2021-06-21] MEDS: Z GUARD REMEDY 4 OZ OINT TP SCH (09:06)
[2021-06-21] MEDS ORDERED: acetaZOLAMIDE SODIUM 500 MG/VIAL VIAL IV ONE (09:30)
[2021-06-21 09:53] LABS: ABG BASE EXCESS 7.1 mmol/L; ABG PCO2 60.5 mmHg (35.0-45.0); ABG PH 7.368 (7.350-7.450); ABG PO2 92.7 mmHg (75.0-100.0); AaDO2 35.6 mmHg; COHb 0.3 % (0.5-1.5); O2Hb 95.7 % (94.0-97.0); SITE, ABG Right Radial; VENT MODE, BG nasal cannula
[2021-06-21] MEDS: POTASSIUM CHLORIDE 20 MEQ TAB.PRT.SR PO SCH ×3 (10:08→12:18)
[2021-06-21] MEDS: FUROSEMIDE 40 MG/4 ML VIAL IV SCH (10:34)
[2021-06-21 12:00] VITALS: BP 132/88
[2021-06-21] MEDS: DIGOXIN 0.125 MG TABLET PO SCH (12:19)
--- NOTE | 2021-06-21 12:19 | NUR ---
RN NOTE HELD DIGOXIN DUE TO LOW HR 51. BIRDIE CHARGE NURSE NOTIFIED.
[2021-06-21 13:44] LABS: EOSINOPHILS % (MANUAL) 7 % (0-4); LYMPHOCYTES % (MANUAL) 9 % (16-48); MONOCYTES % (MANUAL) 15 % (0-11.0); NEUTROPHILS % (MANUAL) 69 (42-76)
[2021-06-21 16:00] VITALS: BP 140/70
--- NOTE | 2021-06-21 18:16 | NUR ---
RN NOTE PT A/O X4, PT REFUSED TO CHANGE THE DRESSING WOUND FOR THIS SHIFT, DUE TO HE WAS CHANGED PREVIOUS SHIFT SOLAR PANEL TECHNICIAN TODAY. Addendum: 06/21/21 at 1819 by PAULETTE LOU RN Amended: Links added.
--- NOTE | 2021-06-21 18:25 | NUR ---
RN NOTES PT REMAIN ON BED A/O X4,WATCHING TV PROGRAM,BREATHING REGULAR,NOT IN ANY FORM OF DISTRESS,O2 1L/NC HELD PER MD CHRISTOPHER TOM, WITH DAI MIDLINE FOR MEDS,LEFT HAND SALINE LOCK INTACT AND PATENT.DROPLET ISOLATION PRECAUTION AWAITING PCR RESULT.CALL LIGHT IN REACH,NEEDS ANTICIPATED. WILL ENDORSE TO NOC SHIFT.
[2021-06-21 20:00] VITALS: BP 105/65
[2021-06-21] MEDS: SERTRALINE HCL 25 MG TABLET PO SCH (21:42)
[2021-06-22] VITALS: BP 137/97
[2021-06-22 04:00] VITALS: BP 143/89
[2021-06-22 07:27] LABS: BASOPHILS # (AUTO) 0.1 K/uL (0.0-0.2); HEMATOCRIT 34 % (39-51); HEMOGLOBIN 10.9 g/dL (13.5-17.5); LYMPHOCYTES # (AUTO) 1.4 K/uL (0.8-4.8); LYMPHOCYTES % (AUTO) 19.7 % (20.0-44.0); MEAN CORPUSCULAR HGB CONC 32 g/dl (31.0-36.0); MEAN CORPUSCULAR VOLUME 95 fL (80-96); MONOCYTES # (AUTO) 1.2 K/uL (0.1-1.30); MONOCYTES % (AUTO) 16.5 % (2.0-12.0); NEUTROPHILS % (AUTO) 57.8 % (43.0-81.0); PLATELET COUNT (AUTO) 222 K/uL (150-450); RED BLOOD CELL COUNT(AUTO) 3.57 MIL/uL (4.5-6.0)
--- NOTE | 2021-06-22 07:39 | NUR ---
HOT TAMALE MAN OPENING NOTES RECEIVED ON BED A/O X4 NO CURRENT COMPLAINTS OF SOB OR PAIN AT THIS TIME,O2 IN USED AT 1L/NC.IV ACCESS WITH DAI MIDLINE FOR MEDS,LEFT HAND SALINE LOCK INTACT AND PATENT.SAFETY MEASURES IN PLACE BED LOCKED IN THE LOWEST POSITION 2 SIDE RAILS UP AND CALL LIGHT WITHIN REACH.
[2021-06-22 08:00] VITALS: BP 101/76
[2021-06-22] MEDS: CEPHALEXIN MONOHYDRATE 500 MG CAPSULE PO SCH ×2 (08:44→16:20)
[2021-06-22] MEDS: FERROUS SULFATE (325 MG) 325 MG/TAB TABLET PO SCH (08:44)
[2021-06-22] MEDS: BENAZEPRIL HCL 20 MG TABLET PO SCH (08:45)
[2021-06-22] MEDS: GABAPENTIN 100 MG CAPSULE PO SCH ×3 (08:45→16:17)
[2021-06-22] MEDS: ASCORBIC ACID 500 MG TABLET PO SCH (08:45)
[2021-06-22] MEDS: METOPROLOL TARTRATE 25 MG TABLET PO SCH ×2 (08:46→16:18)
[2021-06-22] MEDS: FUROSEMIDE 40 MG/4 ML VIAL IV SCH (08:46)
[2021-06-22 08:49] LABS: CALCIUM, SERUM 8.7 mg/dL (8.5-10.1); CREATININE 0.8 mg/dL (0.6-1.3); MAGNESIUM 2.2 mg/dL (1.8-2.4); PHOSPHORUS 3.1 mg/dL (2.5-4.9)
[2021-06-22] MEDS: APIXABAN 5 MG TABLET PO SCH ×2 (08:49→16:22)
[2021-06-22] MEDS: Z GUARD REMEDY 4 OZ OINT TP SCH (08:57)
[2021-06-22] MEDS: CLOTRIMAZOLE 1% 15 GM TUBE TP SCH ×2 (08:57→16:24)
[2021-06-22 09:09] LABS: POTASSIUM 3.3 mmol/L (3.5-5.1)
[2021-06-22 12:00] VITALS: BP 101/66
[2021-06-22] MEDS: DIGOXIN 0.125 MG TABLET PO SCH (13:10)
[2021-06-22 16:00] VITALS: BP 109/86
--- NOTE | 2021-06-22 18:32 | NUR ---
RN NOTE PATIENT COMPLAINTS OF SOB CHECKED PULSE OX 02 SAT 88% AT REST. PLACE ON 4L NC O2 SAT RECHECKED READING 96% HOB ELEVATED.
--- NOTE | 2021-06-22 18:59 | NUR ---
CATECHIST CLOSING NOTES PATIENT ON BED A/O X4 NO CURRENT COMPLAINTS OF SOB OR PAIN AT THIS TIME .IV ACCESS WITH DAI MIDLINE FOR MEDS,LEFT HAND SALINE LOCK INTACT AND PATENT. ALL SCHEDULED MEDICATIONS GIVEN. SAFETY MEASURES IN PLACE BED LOCKED IN THE LOWEST POSITION 2 SIDE RAILS UP AND CALL LIGHT WITHIN REACH. WILL ENDORSE TO NIGHT NURSE FOR SHREYAS.
--- NOTE | 2021-06-22 19:45 | NUR ---
RN NOTE PT RECEIVED IN BED. PT IS ON 3L OF O2 VIA NC SHOWING NO S/S OF RESP DISTRESS. PT IS A/OX4. ON BOILER MAKER SHOWING A-FIB CONTROLLED. MASON CATH NOTED. ON CARDIAC DIET. RIGHT UPPER ARM MIDLINE NOTED, LINE FLUSHED, PATENT, AND INTACT WITH NO SIGNS OF INFILTRATION. ALL SAFETY MEASURES IMPLEMENTED. WILL CONTINUE TO MONITOR AND ASSESS FOR ANY CHANGES DURING SHIFT.
[2021-06-22 20:00] VITALS: BP 118/80
[2021-06-22] MEDS: SERTRALINE HCL 25 MG TABLET PO SCH (21:53)
[2021-06-23] VITALS: BP 103/81
[2021-06-23 04:00] VITALS: BP 132/75
[2021-06-23 06:59] LABS: BASOPHILS # (AUTO) 0.1 K/uL (0.0-0.2); BASOPHILS % (AUTO) 0.8 % (0.0-2.0); EOSINOPHILS % (AUTO) 5.7 % (0.0-6.0); HEMATOCRIT 34 % (39-51); LYMPHOCYTES # (AUTO) 1.5 K/uL (0.8-4.8); LYMPHOCYTES % (AUTO) 18.1 % (20.0-44.0); MEAN CORPUSCULAR HGB CONC 33 g/dl (31.0-36.0); MEAN CORPUSCULAR VOLUME 94 fL (80-96); MONOCYTES # (AUTO) 1.1 K/uL (0.1-1.30); MONOCYTES % (AUTO) 13.6 % (2.0-12.0); NEUTROPHILS % (AUTO) 61.8 % (43.0-81.0); PLATELET COUNT (AUTO) 224 K/uL (150-450); RED BLOOD CELL COUNT(AUTO) 3.58 MIL/uL (4.5-6.0); WHITE BLOOD COUNT (AUTO) 8.1 K/uL (4.3-11.0)
--- NOTE | 2021-06-23 07:00 | NUR ---
RN NOTE NO CHANGES IN PT CONDITION DURING SHIFT. PT IS ON 3L OF O2 VIA NC SHOWING NO S/S OF RESP DISTRESS. PT IS A/OX4. ON FUEL RETROFITTING TECHNICIAN SHOWING A-FIB CONTROLLED. RIGHT UPPER ARM MIDLINE NOTED, LINE FLUSHED, PATENT, AND INTACT WITH NO SIGNS OF INFILTRATION. ALL DUE MEDS GIVEN ORDERED. PT KEPT CLEAN AND COMFORTABLE. ALL SAFETY MEASURES IMPLEMENTED. WILL ENDORSE TO MORNING SHIFT RN FOR SHREYAS.
[2021-06-23 07:46] LABS: CALCIUM, SERUM 8.7 mg/dL (8.5-10.1); CREATININE 0.7 mg/dL (0.6-1.3); MAGNESIUM 2.1 mg/dL (1.8-2.4); PHOSPHORUS 3.4 mg/dL (2.5-4.9); POTASSIUM 3.2 mmol/L (3.5-5.1)
[2021-06-23 08:00] VITALS: BP 139/72
[2021-06-23] MEDS: FERROUS SULFATE (325 MG) 325 MG/TAB TABLET PO SCH (09:17)
[2021-06-23] MEDS: CEPHALEXIN MONOHYDRATE 500 MG CAPSULE PO SCH ×2 (09:18→16:37)
[2021-06-23] MEDS: APIXABAN 5 MG TABLET PO SCH ×2 (09:18→16:37)
[2021-06-23] MEDS: GABAPENTIN 100 MG CAPSULE PO SCH ×3 (09:19→16:37)
[2021-06-23] MEDS: METOPROLOL TARTRATE 25 MG TABLET PO SCH ×2 (09:19→16:38)
[2021-06-23] MEDS: ASCORBIC ACID 500 MG TABLET PO SCH (09:19)
[2021-06-23] MEDS: FUROSEMIDE 40 MG/4 ML VIAL IV SCH ×4 (09:20→17:51)
[2021-06-23] MEDS: Z GUARD REMEDY 4 OZ OINT TP SCH (09:39)
[2021-06-23] MEDS: CLOTRIMAZOLE 1% 15 GM TUBE TP SCH ×2 (09:39→16:39)
[2021-06-23] MEDS: BENAZEPRIL HCL 20 MG TABLET PO SCH (09:41)
--- NOTE | 2021-06-23 10:41 | NUR ---
INFORMATICA MDM DEVELOPER NOTE LASIX 40 MG GIVEN AT 0955
[2021-06-23] MEDS: POTASSIUM CHLORIDE 20 MEQ TAB.PRT.SR PO SCH ×3 (10:44→12:49)
[2021-06-23 12:00] VITALS: BP 133/69
[2021-06-23] MEDS: DIGOXIN 0.125 MG TABLET PO SCH (12:50)
--- NOTE | 2021-06-23 12:59 | NUR ---
COW WASHER NOTE SEEN BY DR GUS GRAY UPDATED PATIENT CONDITION
--- NOTE | 2021-06-23 15:01 | NUR ---
local telephone operator note all needs attended not in distress
--- NOTE | 2021-06-23 15:54 | NUR ---
it telecom technician note offered to be clean but strongly refused will cont to encourage to do ,will f\u
[2021-06-23 16:00] VITALS: BP 134/62
--- NOTE | 2021-06-23 18:45 | NUR ---
telecommunications manager note all needs attended, able to eat dinner self , not in in distress , will monitor
--- NOTE | 2021-06-23 19:51 | NUR ---
RN NOTE PT IS ON 3L OF O2 VIA NC SHOWING NO S/S OF RESP DISTRESS. PT IS A/OX4. 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 RIGHT UPPER ARM MIDLINE NOTED, LINE FLUSHED, PATENT, AND INTACT WITH NO SIGNS OF INFILTRATION. PT KEPT CLEAN AND COMFORTABLE. ALL SAFETY MEASURES IMPLEMENTED. WILL CONTINUE TO MONITOR.
[2021-06-23 20:00] VITALS: BP 115/79
[2021-06-23] MEDS: SERTRALINE HCL 25 MG TABLET PO SCH (21:25)
[2021-06-24] VITALS: BP 120/78
[2021-06-24 06:21] VITALS: BP 147/78
--- NOTE | 2021-06-24 06:43 | NUR ---
RN NOTE PT IS ON 3L OF O2 VIA NC SHOWING NO S/S OF RESP DISTRESS. PT IS A/OX4. 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 RIGHT UPPER ARM MIDLINE NOTED, LINE FLUSHED, PATENT, AND INTACT WITH NO SIGNS OF INFILTRATION. PT KEPT CLEAN AND COMFORTABLE. ALL SAFETY MEASURES IMPLEMENTED. WILL ENDORSE CARE TO DAY SHIFT NURSE.
--- NOTE | 2021-06-24 07:20 | NUR ---
RN NOTE PATIENT OBSERVED AWAKE IN BED, ALERT AND ORIENTED X4 ABLE TO VERBALIZE NEEDS, ON O2 VIA NC @ 3LMP O2 SAT OF 98% BREATHING EVEN AND UNLABORED, RIGHT UPPER ARM MIDLINE FLUSHING WELL, ON TELE MONITOR SR AT THIS TIME. PATIENT ON [place] CATHETER DRAINING WELL NO HEMATURIA NOTED, SAFETY MEASURES OBSERVED, BED WHEELS LOCK, CALL LIGHT WITHIN REACH, WILL CONTINUE TO MONITOR.
[2021-06-24 07:37] LABS: BASOPHILS # (AUTO) 0.1 K/uL (0.0-0.2); BASOPHILS % (AUTO) 0.8 % (0.0-2.0); EOSINOPHILS % (AUTO) 5.8 % (0.0-6.0); HEMATOCRIT 33 % (39-51); HEMOGLOBIN 10.6 g/dL (13.5-17.5); LYMPHOCYTES # (AUTO) 1.2 K/uL (0.8-4.8); MEAN CORPUSCULAR HGB CONC 32 g/dl (31.0-36.0); MEAN CORPUSCULAR VOLUME 95 fL (80-96); MONOCYTES # (AUTO) 1.1 K/uL (0.1-1.30); MONOCYTES % (AUTO) 14.1 % (2.0-12.0); NEUTROPHILS % (AUTO) 64.3 % (43.0-81.0); PLATELET COUNT (AUTO) 225 K/uL (150-450); WHITE BLOOD COUNT (AUTO) 7.8 K/uL (4.3-11.0)
[2021-06-24 08:00] VITALS: BP 142/82
[2021-06-24 08:35] LABS: ALBUMIN 2.7 g/dL (3.4-5.0); BILIRUBIN,TOTAL 0.8 mg/dL (0.2-1.0); CALCIUM, SERUM 8.4 mg/dL (8.5-10.1); CREATININE 0.8 mg/dL (0.6-1.3); PHOSPHORUS 3.2 mg/dL (2.5-4.9); POTASSIUM 3.3 mmol/L (3.5-5.1); TOTAL PROTEIN, SERUM 7.3 g/dL (6.4-8.2)
[2021-06-24] MEDS: GABAPENTIN 100 MG CAPSULE PO SCH ×2 (09:17→13:23)
[2021-06-24] MEDS: APIXABAN 5 MG TABLET PO SCH (09:17)
[2021-06-24] MEDS: Z GUARD REMEDY 4 OZ OINT TP SCH (09:17)
[2021-06-24] MEDS: BENAZEPRIL HCL 20 MG TABLET PO SCH (09:18)
[2021-06-24] MEDS: ASCORBIC ACID 500 MG TABLET PO SCH (09:19)
[2021-06-24] MEDS: CLOTRIMAZOLE 1% 15 GM TUBE TP SCH (09:19)
[2021-06-24] MEDS: CEPHALEXIN MONOHYDRATE 500 MG CAPSULE PO SCH (09:19)
[2021-06-24] MEDS: METOPROLOL TARTRATE 25 MG TABLET PO SCH (09:19)
[2021-06-24] MEDS: FERROUS SULFATE (325 MG) 325 MG/TAB TABLET PO SCH (09:19)
[2021-06-24] MEDS ORDERED: POTASSIUM CHLORIDE 20 MEQ TAB.PRT.SR PO SCH (11:00)
[2021-06-24 12:00] VITALS: BP 140/77
--- NOTE | 2021-06-24 12:00 | NUR ---
RN NOTE PATIENT ALERT AND ORIENTED X 4 ABLE TO MAKE DECISION. PERICARE DONE, PATIENT REFUSED TO TAKE PICTURES FOR DISCHARGE.
[2021-06-24] MEDS ORDERED: Cephalexin Monohydrate PO (12:57)
[2021-06-24] MEDS: DIGOXIN 0.125 MG TABLET PO SCH (13:23)
--- NOTE | 2021-06-24 15:05 | NUR ---
RN NOTE REPORT GIVEN TO [facility], PATIENT PICKED UP BY TRANSPORT. PATIENT VTS WITHIN NORMAL LIMIT.
[2021-06-29] MEDS ORDERED: FURO40TA5 PO (09:23)
[2021-06-29] MEDS ORDERED: PRED50TA PO (09:27)
== END 2021-06-24 15:01 | DRG 194 ==
LOC: ER 09:06 → TRANSITION 15:30 → TELE1 19:56
PROVIDERS: ADMIT Registered Nurse; ATTEND Nurse Practitioner Acute Care
PROC: 05HD33Z Insertion of Infusion Device into Right Cephalic Vein, Percutaneous Approach (ICD-10-PCS; principal; 2021-06-20)
DX: I11.0 Hypertensive heart disease with heart failure (principal); J96.21 Acute and chronic respiratory failure with hypoxia; E87.2 Acidosis; I27.20 Pulmonary hypertension, unspecified; E66.2 Morbid (severe) obesity with alveolar hypoventilation; I48.91 Unspecified atrial fibrillation; G62.9 Polyneuropathy, unspecified; J44.1 Chronic obstructive pulmonary disease with (acute) exacerbation; I50.33 Acute on chronic diastolic (congestive) heart failure; E87.6 Hypokalemia; Z79.01 Long term (current) use of anticoagulants; Z20.822 Contact with and (suspected) exposure to COVID-19; N39.0 Urinary tract infection, site not specified; I69.344 Monoplegia of lower limb following cerebral infarction affecting left non-dominant side; I70.0 Atherosclerosis of aorta; Z68.42 Body mass index [BMI] 45.0-49.9, adult; J98.11 Atelectasis; Z98.84 Bariatric surgery status
CPT/HCPCS: 36415; 36600; 71045-TC; 80048-TC; 80053-TC; 80076-TC; 80162-TC; 81001; 82803-TC; 83735-TC; 83880; 84100-TC; 84439-TC; 84443-TC; 84484-TC; 85025-TC; 87040-TC; 87081-TC; 87086-TC; 87186-TC; C9803; G0378; J0696; J1120; J1940; J2920; J3475; J3480; J3490; J7050; J7060; U0003

== ENCOUNTER 2021-06-25 18:39 | Inpatient (IN) | payer OTHER ==
[~2021-06-25] VITALS: Ht 185.4 cm; Wt 160.6 kg
[~2021-06-25 18:39] MED LIST changes: +ACET-868 PO; +ARGI1POW13 PO; +ASCO-352 PO; +BISA10SU11 RC; +Cephalexin Monohydrate PO; +MAGN400O6 PO; -METO-358 PO; +METO25TA6 PO; +NA P133E RC
--- NOTE | 2021-06-25 18:44 | NUR ---
TO ER BED 8, BIB RA 79 FROM [facility],C/O SOB,NORMALLY ON 5 L O2, WAS JUST RECENTLY ADMITTED FOR THE SAME COMPLAIN, AAOX3, BREATHING EVEN AND NON LABORED, CONNECTED TO MONITOR, AWAITING MD ORDERS
--- NOTE | 2021-06-25 19:19 | NUR ---
DAI MIDLINE 18G S/L; PATENT AND INTACT. NSH TEACHER F/C INSERTED & DRAINGING AMY COLORED URINE; PATENT AND INTACT. URINE AND BLOOD COLLECTED AND SENT TO LAB
--- NOTE | 2021-06-25 19:35 | NUR ---
COVID ANTIGEN SWAB COLLECTED AND SENT TO LAB
[2021-06-25 19:36] LABS: CALCIUM, SERUM 8.4 mg/dL (8.5-10.1); CREATININE 0.8 mg/dL (0.6-1.3); POTASSIUM 3.2 mmol/L (3.5-5.1)
[2021-06-25 19:43] LABS: BILIRUBIN,URINE NEGATIVE (NEGATIVE); COLOR,URINE YELLOW (YELLOW); LEUKOCYTE ESTERASE ,URINE NEGATIVE (NEGATIVE); NITRITE, URINE NEGATIVE (NEGATIVE); PROTEIN,URINE 30 mg/dl (NEGATIVE); UGLUCOSE NEGATIVE (NEGATIVE)
[2021-06-25 19:48] LABS: ALBUMIN 2.7 g/dL (3.4-5.0); BILIRUBIN,DIRECT 0.3 mg/dL (0.0-0.2); BILIRUBIN,TOTAL 0.7 mg/dL (0.2-1.0); TOTAL PROTEIN, SERUM 7.4 g/dL (6.4-8.2)
[2021-06-25 19:52] LABS: BACTERIA,URINE Few /HPF (None Seen); RBC,URINE TOO NUMEROUS TO COUN /HPF (0-2); SQUAMOUS EPITHELIAL CELL,UR Few /HPF (None Seen); WBC,URINE 0-2 /HPF (0-3)
[2021-06-25 20:20] LABS: BASOPHILS # (AUTO) 0.1 K/uL (0.0-0.2); BASOPHILS % (AUTO) 0.7 % (0.0-2.0); EOSINOPHILS % (AUTO) 4.8 % (0.0-6.0); HEMATOCRIT 32 % (39-51); HEMOGLOBIN 10.3 g/dL (13.5-17.5); LYMPHOCYTES % (AUTO) 13.2 % (20.0-44.0); MEAN CORPUSCULAR HGB CONC 33 g/dl (31.0-36.0); MEAN CORPUSCULAR VOLUME 95 fL (80-96); MONOCYTES % (AUTO) 12.1 % (2.0-12.0); NEUTROPHILS # (AUTO) 5.5 K/uL (1.8-8.9); NEUTROPHILS % (AUTO) 69.2 % (43.0-81.0); PLATELET COUNT (AUTO) 231 K/uL (150-450); RED BLOOD CELL COUNT(AUTO) 3.35 MIL/uL (4.5-6.0); WHITE BLOOD COUNT (AUTO) 7.9 K/uL (4.3-11.0)
[2021-06-25] MEDS ORDERED: PIPERACILLIN /TAZOBACTAM 3.375 G in IV D5W 50 ML IV ONE (20:30)
[2021-06-25] MEDS ORDERED: methylPREDNISolone SOD SUCC 125 MG/2ML VIAL IV ONE (20:30)
[2021-06-25] MEDS ORDERED: PIPERACILLIN /TAZOBACTAM 3.375 G VIAL IV ONE (21:37)
[2021-06-25] MEDS ORDERED: methylPREDNISolone SOD SUCC 125 MG/2ML VIAL ONE (21:37)
--- NOTE | 2021-06-25 21:52 | NUR ---
PER ALEM OKAY TO HAVE ICE CHIPS.
--- NOTE | 2021-06-25 23:17 | NUR ---
RN SPOKE TO KRISHAN FROM [employer] [facility] & MAY BE ADMITTED FOR OBSERVATION ADMISSION
[2021-06-26] MEDS ORDERED: ONDANSETRON HCL/PF 4 MG/2 ML VIAL IVP PRN (02:30)
[2021-06-26] MEDS ORDERED: MAG HYDROX/AL HYDROX/SIMETH 30 ML UDC PO PRN (02:30)
[2021-06-26] MEDS ORDERED: MAGNESIUM HYDROXIDE 30 ML UDC PO PRN (02:30)
[2021-06-26] MEDS ORDERED: ACETAMINOPHEN 325 MG TABLET PO PRN (02:30)
[2021-06-26] MEDS ORDERED: Z GUARD REMEDY 4 OZ OINT TP PRN (02:30)
[2021-06-26] MEDS ORDERED: methylPREDNISolone SOD SUCC 125 MG/2ML VIAL ONE (05:10)
[2021-06-26] MEDS ORDERED: PIPERACILLIN /TAZOBACTAM 3.375 G VIAL IV ONE (05:10)
[2021-06-26] MEDS ORDERED: ENOXAPARIN SODIUM 60 MG/0.6 ML DISP.SYRIN SQ ONE (05:10)
[2021-06-26] MEDS: methylPREDNISolone SOD SUCC 40 MG/ML VIAL IV SCH ×3 (05:23→21:17)
[2021-06-26] MEDS: ENOXAPARIN SODIUM 40 MG/0.4 ML DISP.SYRIN SQ SCH ×2 (05:24→21:19)
[2021-06-26] MEDS ORDERED: ACETAMINOPHEN 325 MG TABLET ONE (05:27)
--- NOTE | 2021-06-26 05:34 | NUR ---
PT C/O 08/06 BUTTOCK PAIN. REPOSITIONED PATIENT. ADMINISTERED TYLENOL 650MG PO ORDERED. WILL REASSESS FOR PAIN. STRICT I & O: INTAKE 600ML OUTPUT 450ML URINE VIA F/C. ALL NEEDS MET. VSS.
[2021-06-26] MEDS ORDERED: ZOSYN IVPB 3.375 G in IV D5W 50ml IV SCH (06:00)
--- NOTE | 2021-06-26 06:46 | NUR ---
PT SLEEPING IN BED. ON O2 12LPM VIA NRB; TOLERATING WELL WITH NO SOB AT 100%. NO S/SX OF PAIN AT THIS TIME. DAI MIDLINE #18G S/L; PATENT AND INTACT. F/C DRAINING URINE; INTACT. PT CONNECTED TO MONITOR AND POX. SAFETY MEASURES IN PLACE; BED IN LOWEST LOCKED POSITION, SIDE RAILS UPX2, CALL LIGHT WITHIN EASY REACH. ALL NEEDS MET AT THIS TIME. WILL ENDORSE SHREYAS TO ONCOMING MORNING RN
[2021-06-26] MEDS ORDERED: PIPERACILLIN /TAZOBACTAM 3.375 G in IV D5W 100 ML IV SCH (07:30)
[2021-06-26] MEDS ORDERED: PANTOPRAZOLE 40 MG TABLET.DR PO ONE (07:58)
[2021-06-26] MEDS: FUROSEMIDE 40 MG/4 ML VIAL IV SCH ×3 (08:00→16:44)
[2021-06-26] MEDS: PANTOPRAZOLE 40 MG TABLET.DR PO SCH (08:07)
[2021-06-26] MEDS ORDERED: FUROSEMIDE 40 MG/4 ML VIAL ONE (08:13)
[2021-06-26] MEDS: POTASSIUM CHLORIDE 20 MEQ TAB.PRT.SR PO SCH ×3 (10:00→11:00)
--- NOTE | 2021-06-26 10:42 | NUR ---
REPORT GIVEN TO NAUN AMATO. AWAITING TRANSFER TO FLOOR.
[2021-06-26] MEDS ORDERED: POTASSIUM CHLORIDE 20 MEQ TAB.PRT.SR PO ONE (10:45)
--- NOTE | 2021-06-26 10:45 | NUR ---
ROOM 329-1
--- NOTE | 2021-06-26 11:46 | NUR ---
TRANSFERRED TO BED 329 IN STABLE CONDITION
--- NOTE | 2021-06-26 11:50 | NUR ---
Patient arrived via gurney at 11:49am, from ER department. Patient AO X 4, able to make needs known, can follow simple commands, no apparent distress noted, breathing even and unlabored. Admitting hospitalist made aware of the patient's arrival. Patient admitting diagnosis hypoxia secondary to pneumonia. Patient's vital signs within normal limits, no complained of facial numbness or weakness, no extremity numbness or weakness at this time. Skin intact, warm to touch, no pallor or cyanosis noted. Patient noted to have scars on right lateral part of abdomen, and sacral wound. Patient oriented with use of call lights, use of bed control, use of telephone and tv control, also introduces MACHINE SET UP and RN assigned for today, verbalized understanding and gratitude. All belongings written in the inventory list. All needs attended, kept clean and dry, call light left within reach, safety precautions in place, brakes locked, side rails up X 2, will monitor closely for any changes.
[2021-06-26] MEDS: POTASSIUM CHLORIDE 20 MEQ POWDER PACKET PO SCH ×2 (12:54→14:10)
[2021-06-26] MEDS: PIPERACILLIN /TAZOBACTAM 3.375 G in IV D5W 100 ML IV SCH ×2 (12:55→21:17)
[2021-06-26 13:45] VITALS: BP 154/115
--- NOTE | 2021-06-26 18:22 | NUR ---
RN CLOSING NOTES Patient lying in bed, no SOB, respirations even and unlabored, no dizziness, no palpitations, no grimacing, remained afebrile during shift. No nausea, no vomiting, abdominal bowel sound present in all quadrant, no grimacing when abdomen palpated. All medications given per MD order, tolerating well. Jones catheter draining clear yellowish urine free from any sediments, no hematuria, and no unusual odor noted in urine, denies any bladder pain or discomfort, bladder non distended during shift. Kept clean and dry, call light left within reach, all needs anticipated, aspiration precautions observed at all times, kept head of bed elevated, safety precautions in place, brakes locked, side rails up X 2, will endorse to next shift for continuity of care.
--- NOTE | 2021-06-26 19:40 | NUR ---
RN NOTE RECEIVED PATIENT IN BED, AO X 4, IN NO S/SX OF ACUTE DISTRESS AT THIS TIME. SATURATION AT 99% ON 15L VIA NRB MASK, AFIB ON THE MONITOR, HR IS 95. NOTED DAI PICCLINE, ALL HUBS PATENT AND FLUSHING WELL, NO S/S OF INFECTIONN. MASON CATHETER CONNECTED TO URINE BAG IN PLACE, DRAINING TO A DARK YELLOW URINE. SAFETY MEASURES IMPLEMENTED. PATIENT BED ALARM IS ON. HEAD OF BED ELEVATED. BED IS LOCKED, IN LOWEST POSITION AND SIDE RAILS UP. CALL LIGHT WITHIN REACH OF THE PATIENT. WILL CONTINUE TO MONITOR AND REASSESS FOR ANY CHANGES.
[2021-06-26 20:00] VITALS: BP 129/87
[2021-06-27] VITALS (8 sets, daily range): BP systolic 104–133; BP diastolic 56–90
[2021-06-27] MEDS: PIPERACILLIN /TAZOBACTAM 3.375 G in IV D5W 100 ML IV SCH ×3 (04:50→20:42)
[2021-06-27] MEDS: methylPREDNISolone SOD SUCC 40 MG/ML VIAL IV SCH (04:50)
[2021-06-27] MEDS: PANTOPRAZOLE 40 MG TABLET.DR PO SCH (07:22)
[2021-06-27 07:23] LABS: HEMATOCRIT 35 % (39-51); HEMOGLOBIN 11.2 g/dL (13.5-17.5); LYMPHOCYTES # (AUTO) 0.6 K/uL (0.8-4.8); LYMPHOCYTES % (AUTO) 6.4 % (20.0-44.0); MEAN CORPUSCULAR HGB CONC 32 g/dl (31.0-36.0); MEAN CORPUSCULAR VOLUME 95 fL (80-96); MONOCYTES # (AUTO) 0.6 K/uL (0.1-1.30); MONOCYTES % (AUTO) 6.5 % (2.0-12.0); NEUTROPHILS # (AUTO) 7.8 K/uL (1.8-8.9); NEUTROPHILS % (AUTO) 87.1 % (43.0-81.0); PLATELET COUNT (AUTO) 224 K/uL (150-450); RED BLOOD CELL COUNT(AUTO) 3.66 MIL/uL (4.5-6.0); WHITE BLOOD COUNT (AUTO) 8.9 K/uL (4.3-11.0)
[2021-06-27 07:53] LABS: ALBUMIN 2.9 g/dL (3.4-5.0); BILIRUBIN,TOTAL 0.6 mg/dL (0.2-1.0); CALCIUM, SERUM 8.6 mg/dL (8.5-10.1); CREATININE 0.9 mg/dL (0.6-1.3); MAGNESIUM 2.1 mg/dL (1.8-2.4); PHOSPHORUS 2.8 mg/dL (2.5-4.9); POTASSIUM 4.1 mmol/L (3.5-5.1); TOTAL PROTEIN, SERUM 7.7 g/dL (6.4-8.2)
--- NOTE | 2021-06-27 08:18 | NUR ---
RN OPENING NOTES PATIENT AWAKE IN BED RESTING, A/O X2-3. NO S/S OF PAIN NOTED AT THIS TIME. ON 15L OXYGEN VIA NRB MASK, NO DISTRESS OR SHORTNESS OF BREATH NOTED. IV ACCESS DAI PICC LINE, INTACT, PATENT AND FLUSHING WELL. 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 PATIENT HAVE A MASON CATHETER, INPLACE AND DRAINING WELL. FALL AND SAFETY MEASURES IN PLACE, BED ALARM ON, BED IN LOW AND LOCK POSITION, CALL LIGHT AND TABLE WITHIN EASY REACH, SIDE RAILS UP X2. WILL CONTINUE TO MONITOR. Addendum: 06/27/21 at 1928 by Romy Keating RN PATIENT A/O X4
[2021-06-27] MEDS: POTASSIUM CHLORIDE 20 MEQ TAB.PRT.SR PO SCH ×3 (09:02→12:08)
[2021-06-27] MEDS: FUROSEMIDE 40 MG/4 ML VIAL IV SCH ×3 (09:03→16:55)
--- NOTE | 2021-06-27 19:26 | NUR ---
RN CLOSING NOTES PATIENT AWAKE IN BED RESTING, A/O X4. NO S/S OF PAIN NOTED AT THIS TIME. ON 15L OXYGEN VIA NRB MASK, NO DISTRESS OR SHORTNESS OF BREATH NOTED. IV ACCESS DAI PICC LINE, INTACT, PATENT AND FLUSHING WELL. 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 PATIENT HAVE A MASON CATHETER, INPLACE AND DRAINING WELL. FALL AND SAFETY MEASURES IN PLACE, BED ALARM ON, BED IN LOW AND LOCK POSITION, CALL LIGHT AND TABLE WITHIN EASY REACH, SIDE RAILS UP X2. WILL ENDORSE TO SIDING APPLICATOR.
--- NOTE | 2021-06-27 20:40 | NUR ---
RN NOTE RECEIVED PATIENT IN BED RESTING ALERT ORIENTED X4 VERBALLY RESPONSIVE ON 4L OXYGEN VIA NASAL CANNULA O2:96% IV SITE IS ON RIGHT UPPER ARM PICC LINE INTACT PATENT,MASON CATHETER IN PLACE URINE DRAINING BY GRAVITY,SAFETY MEASURE IMPLEMENT,BED IN LOW POSITON AND LOCKED CALL LIGHT WITHIN REACH CONTINUE TO MONITOR.
[2021-06-27] MEDS: ENOXAPARIN SODIUM 40 MG/0.4 ML DISP.SYRIN SQ SCH (20:47)
[2021-06-28] VITALS: BP 109/70
[2021-06-28 04:00] VITALS: BP_SYST 112; BP_SYST 119; BP_DIAS 74; BP_DIAS 94
[2021-06-28] MEDS: PIPERACILLIN /TAZOBACTAM 3.375 G in IV D5W 100 ML IV SCH ×3 (04:07→20:29)
--- NOTE | 2021-06-28 06:55 | NUR ---
RN NOTE PATIENT REMAINS ON ALERT ORIENTED X4 VERBALLY RESPONSIVE ON 4L OXYGEN VIA NASAL CANNULA,O2:98% NO SOB NOT ACUTE DISTRESS NOTED,ALL DUE MEDS GIVEN MD ORDERED KEPT CLEAN AND DRY ALL THE TIME,KEPT COMFORTABLE REPOSITIONED EVERY 2 HOURS ALL NEEDS MET ENDORSE NEXT COMING SHIFT FOR CONTINUATION OF CARE.
--- NOTE | 2021-06-28 07:10 | NUR ---
RN OPENING NOTES RECEIVED PATIENT AWAKE IN BED RESTING, A/O X 4. PATIENT IS BREATHING EVENLY AND NONLABORED ON 4LPM VIA NASAL CANNULA. , NO DISTRESS OR SHORTNESS OF BREATH NOTED. DENIES PAIN OR DISCOMFORT AT THIS TIME. IV ACCESS DAI PICC LINE, INTACT, PATENT AND FLUSHING WELL. PATIENT HAVE EXTERNAL SUPERVISOR IN CIRCUIT TESTING,. PATIENT NOTED WITH MASON CATHETER, IN PLACE AND DRAINING WELL. FALL AND SAFETY MEASURES IN PLACE, BED ALARM ON, BED IN LOW AND LOCK POSITION, CALL LIGHT AND TABLE WITHIN EASY REACH, SIDE RAILS UP X2. WILL CONTINUE TO MONITOR.
[2021-06-28] MEDS: PANTOPRAZOLE 40 MG TABLET.DR PO SCH (07:27)
[2021-06-28 08:05] LABS: BASOPHILS % (AUTO) 0.1 % (0.0-2.0); EOSINOPHILS % (AUTO) 0.1 % (0.0-6.0); HEMATOCRIT 33 % (39-51); HEMOGLOBIN 10.6 g/dL (13.5-17.5); LYMPHOCYTES # (AUTO) 0.8 K/uL (0.8-4.8); LYMPHOCYTES % (AUTO) 7.3 % (20.0-44.0); MEAN CORPUSCULAR HGB CONC 32 g/dl (31.0-36.0); MEAN CORPUSCULAR VOLUME 95 fL (80-96); MONOCYTES # (AUTO) 1.3 K/uL (0.1-1.30); MONOCYTES % (AUTO) 11.2 % (2.0-12.0); NEUTROPHILS # (AUTO) 9.4 K/uL (1.8-8.9); NEUTROPHILS % (AUTO) 81.3 % (43.0-81.0); PLATELET COUNT (AUTO) 204 K/uL (150-450); WHITE BLOOD COUNT (AUTO) 11.5 K/uL (4.3-11.0)
[2021-06-28 08:16] LABS: ALBUMIN 2.8 g/dL (3.4-5.0); BILIRUBIN,TOTAL 0.5 mg/dL (0.2-1.0); CALCIUM, SERUM 8.3 mg/dL (8.5-10.1); CREATININE 0.9 mg/dL (0.6-1.3); PHOSPHORUS 2.4 mg/dL (2.5-4.9); POTASSIUM 3.5 mmol/L (3.5-5.1); TOTAL PROTEIN, SERUM 7.3 g/dL (6.4-8.2)
[2021-06-28 08:39] VITALS: BP 132/84
[2021-06-28] MEDS: POTASSIUM CHLORIDE 20 MEQ TAB.PRT.SR PO SCH (08:49)
[2021-06-28] MEDS: FUROSEMIDE 40 MG TABLET PO SCH (08:49)
[2021-06-28] MEDS ORDERED: K PHOS NEUTRAL 250 MG TABLET PO ONE (11:00)
[2021-06-28 12:37] VITALS: BP 153/81
[2021-06-28 16:10] VITALS: BP 133/77
--- NOTE | 2021-06-28 18:37 | NUR ---
RN CLOSING NOTES PATIENT AWAKE IN BED RESTING, A/O X 4. PATIENT IS BREATHING EVENLY AND NONLABORED ON 4LPM VIA NASAL CANNULA. , NO DISTRESS OR SHORTNESS OF BREATH NOTED. DENIES PAIN OR DISCOMFORT AT THIS TIME. IV ACCESS DAI PICC LINE, INTACT, PATENT AND FLUSHING WELL. PATIENT HAVE EXTERNAL SLUICE TENDER,. PATIENT NOTED WITH MASON CATHETER, IN PLACE AND DRAINING WELL. ALL MEDICATIONS GIVEN ORDERED. PATIENT KEPT CLEAN AND DRY DURING SHIFT. FALL AND SAFETY MEASURES IN PLACE, BED ALARM ON, BED IN LOW AND LOCK POSITION, CALL LIGHT AND TABLE WITHIN EASY REACH, SIDE RAILS UP X2. WILL ENDORSE TO ONCOMING SHIFT
--- NOTE | 2021-06-28 19:30 | NUR ---
RN OPENING NOTES PATIENT AWAKE IN BED RESTING, A/O X3 FORGETFUL. PATIENT IS BREATHING EVENLY AND NONLABORED ON 4LPM VIA NASAL CANNULA. , NO DISTRESS OR SHORTNESS OF BREATH NOTED. DENIES PAIN OR DISCOMFORT AT THIS TIME. IV ACCESS DAI PICC LINE, INTACT, PATENT AND FLUSHING WELL. PATIENT HAVE EXTERNAL BROADCAST CORRESPONDENT,. PATIENT NOTED WITH MASON CATHETER, IN PLACE AND DRAINING WELL. PATIENT KEPT CLEAN AND DRY DURING SHIFT. FALL AND SAFETY MEASURES IN PLACE, BED ALARM ON, BED IN LOW AND LOCK POSITION, CALL LIGHT AND TABLE WITHIN EASY REACH, SIDE RAILS UP X2. WILL CONTINUE TO MONITOR.
[2021-06-28 20:00] VITALS: BP 138/96
[2021-06-28] MEDS: ENOXAPARIN SODIUM 40 MG/0.4 ML DISP.SYRIN SQ SCH (20:34)
[2021-06-29] VITALS: BP 143/91
[2021-06-29] MEDS: PIPERACILLIN /TAZOBACTAM 3.375 G in IV D5W 100 ML IV SCH ×2 (03:37→12:21)
[2021-06-29 04:14] VITALS: BP 141/86
--- NOTE | 2021-06-29 06:36 | NUR ---
RN CLOSING NOTES PATIENT AWAKE IN BED RESTING, A/O X3 FORGETFUL. PATIENT IS BREATHING EVENLY AND NONLABORED ON 4LPM VIA NASAL CANNULA. , NO DISTRESS OR SHORTNESS OF BREATH NOTED. DENIES PAIN OR DISCOMFORT AT THIS TIME. IV ACCESS DAI PICC LINE, INTACT, PATENT AND FLUSHING WELL. PATIENT HAVE EXTERNAL DRONE PILOT,. PATIENT NOTED WITH MASON CATHETER, IN PLACE AND DRAINING WELL. PATIENT KEPT CLEAN AND DRY DURING SHIFT. FALL AND SAFETY MEASURES IN PLACE, BED ALARM ON, BED IN LOW AND LOCK POSITION, CALL LIGHT AND TABLE WITHIN EASY REACH, SIDE RAILS UP X2. WILL ENDORSE CRAE TO DAY SHIFT NURSE.
[2021-06-29 07:07] LABS: BASOPHILS % (AUTO) 0.2 % (0.0-2.0); HEMATOCRIT 32 % (39-51); HEMOGLOBIN 10.5 g/dL (13.5-17.5); LYMPHOCYTES # (AUTO) 1.2 K/uL (0.8-4.8); LYMPHOCYTES % (AUTO) 13.6 % (20.0-44.0); MEAN CORPUSCULAR HGB CONC 32 g/dl (31.0-36.0); MEAN CORPUSCULAR VOLUME 94 fL (80-96); MONOCYTES # (AUTO) 1.4 K/uL (0.1-1.30); MONOCYTES % (AUTO) 15.7 % (2.0-12.0); NEUTROPHILS % (AUTO) 67.5 % (43.0-81.0); PLATELET COUNT (AUTO) 200 K/uL (150-450); RED BLOOD CELL COUNT(AUTO) 3.44 MIL/uL (4.5-6.0); WHITE BLOOD COUNT (AUTO) 8.9 K/uL (4.3-11.0)
--- NOTE | 2021-06-29 07:28 | NUR ---
MS RN OPENING NOTES PATIENT AWAKE IN BED RESTING, A/O X3, FORGETFUL. PATIENT IS BREATHING EVENLY AND NONLABORED ON 4 LPM VIA NASAL CANNULA. , NO DISTRESS OR SHORTNESS OF BREATH NOTED. DENIES PAIN OR DISCOMFORT AT THIS TIME. IV ACCESS DAI PICC LINE, INTACT, PATENT AND FLUSHING WELL. PATIENT NOTED WITH MASON CATHETER IN PLACE AND DRAINING WELL. FALL AND SAFETY MEASURES IN PLACE, BED ALARM ON, BED IN LOW AND LOCK POSITION, CALL LIGHT AND TABLE WITHIN EASY REACH, SIDE RAILS UP X2. WILL CONTINUE TO MONITOR.
[2021-06-29] MEDS: PANTOPRAZOLE 40 MG TABLET.DR PO SCH (07:49)
[2021-06-29 08:00] VITALS: BP 118/84
--- NOTE | 2021-06-29 08:07 | NUR ---
WOUND CARE CONSULT: PT PRESENTS WITH VERY EDEMATOUS LOWER LEGS/FEET AND ANKLES WELL SCARRING TO SACRUM AND BUTTOCKS/BUTTOCKS FOLDS WITH INCONTINENCE ASSOCIATED SKIN DAMAGE OVER PREVIOUS SCARRING, ALL PRESENT ON ADMISSION. RECOMMENDATIONS MADE FOR SKIN PROTECTION. DISCUSSED WITH NURSING STAFF. PT NOTED TO BE INCONTINENT OF STOOL. [facility] IN AGREEMENT WITH PLAN OF CARE. Addendum: 06/29/21 at 0813 by ELY LIU WNDNU Amended: Links added.
[2021-06-29 08:14] LABS: CREATININE 0.8 mg/dL (0.6-1.3); PHOSPHORUS 3.2 mg/dL (2.5-4.9); POTASSIUM 3.3 mmol/L (3.5-5.1)
[2021-06-29] MEDS ORDERED: FURO40TA5 PO (09:23)
[2021-06-29] MEDS ORDERED: PRED50TA PO (09:27)
[2021-06-29] MEDS: FUROSEMIDE 40 MG TABLET PO SCH (09:35)
[2021-06-29 09:36] LABS: MAGNESIUM 2.2 mg/dL (1.8-2.4)
[2021-06-29] MEDS: POTASSIUM CHLORIDE 20 MEQ TAB.PRT.SR PO SCH (09:36)
--- NOTE | 2021-06-29 11:04 | NUR ---
RN NOTES ATTEMPTED TO PLACE PATIENT ON ROOM AIR BUT PATIENT BEGAN SATURATING AT 87% WITH MILD SHORTNESS OF BREATH. PATIENT WAS PLACED BACK ON OXYGEN 4 LPM VIA NASAL CANNULA AND O2 RETURNED TO 97-99%
[2021-06-29 11:35] LABS: ABG BASE EXCESS 3.9 mmol/L; ABG PCO2 47.2 mmHg (35.0-45.0); ABG PO2 54.2 mmHg (75.0-100.0); COHb 0.4 % (0.5-1.5); MetHb 0.3 % (0.0-1.5); O2Hb 83.4 % (94.0-97.0); SITE, ABG Left Radial; VENT MODE, BG ROOM AIR
[2021-06-29 16:00] VITALS: BP 129/78
--- NOTE | 2021-06-29 18:13 | NUR ---
RN NOTES PT CLEARED BY DR DANIELS FOR DISCHARGE TODAY. PT INFORMED. RECEIVING FACILITY CALLED ([facility]) AND REPORT GIVEN TO MARJORIE RUSSELL. PT'S SAE ALSO CALLED AND MADE AWARE.
--- NOTE | 2021-06-29 18:38 | NUR ---
MS RN CLOSING NOTES PT RESTING IN BED, AROUSABLE BY VOICE OR TOUCH TO A/O X 4. FORGETFUL. PATIENT IS BREATHING EVENLY AND NONLABORED ON 4 LPM VIA NASAL CANNULA. PATIENT REFUSED TO BE TURNED DURING SHIFT TODAY. NO S/S OF PAIN OR DISCOMFORT AT THIS TIME. IV ACCESS DAI PICC LINE, INTACT, PATENT AND FLUSHING WELL. PATIENT NOTED WITH MASON CATHETER IN PLACE AND DRAINING WELL. FALL AND SAFETY MEASURES IN PLACE, BED ALARM ON, BED IN LOW AND LOCK POSITION, CALL LIGHT AND TABLE WITHIN EASY REACH, SIDE RAILS UP X2. PATIENT AWAITING TRANSPORT TO [facility]IVING [facility]AC[facility] ([facility]) TONIGHT. TRANSPORT IS SCHEDULED TO [facility] AND COMMUNICATIONS ENGINEER PATIENT TONIGHT AT 1900. CONTACTED AND MADE AWARE. WILL ENDORSE TO STITCHING DEPARTMENT SUPERVISOR FOR SHREYAS.
== END 2021-06-29 19:50 | DRG 194 ==
LOC: ER 18:44 → TRANSITION 06-26 04:45 → TELE 06-26 11:02 → MED 06-29 04:20
PROVIDERS: ADMIT Internal Medicine; ATTEND Internal Medicine
PROC: 05H533Z Insertion of Infusion Device into Right Subclavian Vein, Percutaneous Approach (ICD-10-PCS; principal; 2021-06-26)
PROC: B546ZZA Ultrasonography of Right Subclavian Vein, Guidance (ICD-10-PCS; 2021-06-26)
DX: I11.0 Hypertensive heart disease with heart failure (principal); J96.21 Acute and chronic respiratory failure with hypoxia; E43 Unspecified severe protein-calorie malnutrition; I27.20 Pulmonary hypertension, unspecified; D63.8 Anemia in other chronic diseases classified elsewhere; E88.09 Other disorders of plasma-protein metabolism, not elsewhere classified; J90 Pleural effusion, not elsewhere classified; I69.354 Hemiplegia and hemiparesis following cerebral infarction affecting left non-dominant side; I48.0 Paroxysmal atrial fibrillation; M10.9 Gout, unspecified; I50.33 Acute on chronic diastolic (congestive) heart failure; J44.9 Chronic obstructive pulmonary disease, unspecified; E66.01 Morbid (severe) obesity due to excess calories; Z87.891 Personal history of nicotine dependence; E87.6 Hypokalemia; Z86.16 Personal history of COVID-19; G62.9 Polyneuropathy, unspecified; Z68.42 Body mass index [BMI] 45.0-49.9, adult; G47.30 Sleep apnea, unspecified; Z20.822 Contact with and (suspected) exposure to COVID-19; Z79.01 Long term (current) use of anticoagulants
CPT/HCPCS: 36410; 36415; 36600; 71045-TC; 80048-TC; 80053-TC; 80076-TC; 81001; 82803-TC; 83690-TC; 83735-TC; 83880; 84100-TC; 84484-TC; 85025-TC; 85730-TC; 87081-TC; 87086-TC; 97530-TC; C9803; G0378; J1650; J1940; J2405; J2543; J2920; J2930; J7030; J7040; J7060